=== PATIENT | female | born 1950 | race Caucasian/White ===

== ENCOUNTER 2019-07-17 08:43 | Outpatient (RCR) | payer MEDICARE, OTHER, SELFPAY ==
--- NOTE | 2019-07-23 10:37 | ONC FU_ITS ---
Dr. Bedolla Patient Follow-Up Note Patient: Sophia Ugarte Unit #: [id number]: 1950 Dicatated By: Demetris Bedolla M.D.Date of Visit:Jul 17, 2019 Onc Med Follow-up/Prog Note Chief Complaint: Breast cancer. History of Present Illness: This is a 68 year-old woman with history of left breast cancer, now with multifocal infiltrating ductal carcinoma of the right breast, stage IIA (T1c, pN1a, M0), ER/WV positive and HER-2/alicia negative. She had presented with an abnormal screening mammogram. She underwent excisional biopsy on 05/15/2009. Pathology showed grade 2 infiltrating ductal carcinoma measuring 1.2 x 0.6 cm. There was tumor within 1 mm of the inked margin. She then underwent reexcision lumpectomy and axillary sentinel lymph node biopsy on 06/09/2009. There was no residual tumor in the reexcision specimen and there was no involvement in 1 sentinel lymph node. As such, her disease was stage IA (T1c, N0, M0). Oncotype DX showed a recurrence score of 10, low risk category. She completed radiation to the left breast in July 2009 to a total dose of 6040 cGy. She had then started adjuvant hormonal therapy with Femara. It was stopped in August of 2010 because of increasing musculoskeletal pain. She then started Aromasin in March 2011. She had some pain on the Aromasin also, but initially it was tolerable. However, by July 2012 her pain had increased significantly, and at that point I did have her stop treatment. She started tamoxifen in September 2012. She had presented to Dr. Peterson in December 2012 with pain and swelling in her left leg. A venous Doppler showed occlusive thrombus in the posterior tibial vein at the ankle. She was treated with Lovenox and subsequently with warfarin. Tamoxifen was discontinued. She restarted treatment with Aromasin in January 2013. I did have her stop in June 2015, at which point she had completed 5 years of hormonal therapy. During subsequent follow-up, she also developed atrial fibrillation, for which she has remained on chronic anticoagulation with warfarin. She had evidence of osteoporosis on her baseline bone density study. She was given IV Zometa, but it was stopped after the initial infusion because of side effects. Her laboratory studies in July 2012 showed a mildly elevated serum calcium, and I also had her stop her calcium supplement at that time, but she continued to take vitamin D. Her most recent bone density study, from October 2013, showed a T score of -2.2 in the lumbar spine. She was found to have an adenomatous polyp in the sigmoid colon on colonoscopy in May 2010. She has continued on observation/expectant management for the breast cancer. As of her follow-up visit on 10/17/2017 she appeared to be doing well clinically other than her yearly mammogram from 10/10/2018 was BI-RADS 0 with finding of questionable developing focal asymmetries in the right upper and lower outer quadrants. Additional mammogram views and right breast ultrasound on 10/20/2018 were BI-RADS 4C, suspicious with ultrasound showing 3 suspicious lesions at the 12:00 position and one additional lesion in the subareolar area at the 6:00 position. On 11/06/2018 she underwent biopsies of 2 lesions at the 12:00 position and biopsy of the lesion at 6:00. All showed infiltrating ductal carcinoma. One of the 12:00 lesions was grade 1. The other 2 lesions were grade 2. The breast prognostic profile from the 6:00 lesion showed ER positive at 87% and [place] positive at 62%. The HER-2/alicia results are still pending. The Ki-67 was intermediate at 14%. On 11/30/2018 she underwent bilateral simple mastectomy with right axillary sentinel lymph node biopsy. Pathology on the right breast showed grade 2 infiltrating ductal carcinoma with the tumor in the subareolar location and measuring 1.6 x 1.0 cm. The margins were free of tumor. There were fibrocystic changes noted in both breasts. There was involvement in 1 axillary sentinel lymph node. With those findings she had further evaluation with Oncotype DX. It showed a recurrence score of 22, corresponding to an 18% risk of distant recurrence at 9 years with adjuvant hormonal therapy. The absolute benefit with addition of adjuvant chemotherapy was estimated at approximately 1%. I had seen her for a followup visit on 01/02/2019. Given the Oncotype DX results, she began adjuvant hormonal therapy with exemestane 25 mg daily. She is seen for a follow-up visit. She has been feeling pretty good generally, though she does complain that the exemestane has a making her more tired and fat. Her weight, though, is actually down a little. Her ECOG score is 1. She has not had fever. She has just occasional hot flashes. Her says that she tends to breathe hard at night. She does not complain of shortness of breath. She does have some nonproductive cough. She does not complain of chest pain. She has nausea at times. Bowel function is adequate with stool softeners. She has no complaints. She does have some soreness in her joints, particularly her knees, but it is tolerable. She has just occasional headache. She has numbness in her hands and feet. Medications: Colace 1 Capsule (of 100 mg) Oral daily PRN, Coumadin (5 mg) Tablet Oral Take as Directed, D 1000 2 (1000 Units) Tablet Oral daily, Latanoprost 1 Dual Pack (of 0.005 %) Solution Ophthalmic at bedtime, Metoprolol Succinate ER 1 Tablet (of 50 mg) Tablet SR 24 HR Oral daily, Multivitamin Adult 1 Tablet Oral daily, Pantoprazole Sodium 1 Tablet (of 40 mg) Tablet, enteric coated Oral daily PRN, Tylenol 1 Tablet (of 500 mg) Oral q 6 hours PRN Allergies: Reglan and Sulfamethoxazole-Trimethoprim. Review of Systems: Constitutional - Her energy is generally pretty good. She does light work at home. Her appetite is good and her weight is down a couple of pounds. No fever or chills. She has occasional hot flashes and sweating. ECOG score is 1, ENMT - No sinus congestion/drainage. No mouth sores. No sore throat or difficulty swallowing, Hematologic/Lymphatic - She bruises easily, Respiratory - No shortness of breath. She has periods of apnea at night. She has a nonproductive cough. No pleuritic pain or hemoptysis, Cardiovascular - No angina pain. No palpitations, Gastrointestinal - She has occasional nausea. No vomiting. She has occasional heartburn, depending on what she eats. She takes stool softeners and prunes for her constipation. No blood in the stool or black stools, Genitourinary (F) - No dysuria or hematuria. No urinary frequency. No urgency or incontinence, Musculoskeletal - Her joint pain has gotten worse since starting Exemestane, especially in her knees, Integumentary - No skin complications, Neurologic - No headache or dizziness. She has numbness and tingling in her hands and feet, Psychiatric - No anxiety or depression. No insomnia. Vital Signs: Performed on Jul 17, 2019 09:01 Height - 68.00 in Weight - 167.8 lbs (LOW) BSA - 1.90 sq.m BMI - 25.51 Temperature - 97.9 F (LOW) Pulse - 82 /min Respiration - 20 /min BP - 153/84 mm(hg) (HIGH) O2 Sat - 98 % Pain - 0 Physical Examination: Constitutional - She looks pretty good generally, Eyes - Sclerae nonicteric. Conjunctivae clear, ENMT - No lesions noted in the oral cavity, Hematologic/Lymphatic - No cervical or clavicular adenopathy, Respiratory - Lungs are clear with good air movement bilaterally, Cardiovascular - Heart rhythm is irregular. There is no murmur, gallop, or rub noted, Breasts - There is a firm, moveable nodule in the lateral aspect of the right chest wall/axilla. There are no chest wall lesions noted. There is no axillary adenopathy, Abdomen - Soft. Liver and spleen are not enlarged. There is no abdominal mass or ascites noted and there is no inguinal adenopathy, Extremities - There is mild swelling at the left ankle, Neurologic - No focal neurologic deficits noted. Lab/Imaging: Test performed on May 15, 2019 16:35 Sodium 140 mmol/L Potassium 4.2 mmol/L Chloride 106 mmol/L CO2 24 mmol/L Anion Gap 14.2 BUN 21 mg/dL Creatinine 0.6 mg/dL Cr Clearance (Est) 106.4600 mL/min eGFR 98.8 mL/min Glucose 93 mg/dl Calcium 11.1 mg/dL Protein, Total 7.7 g/dL Albumin 5.1 g/dL Globulin 2.6 gm/dL Bilirubin, Total 0.4 mg/dL ALT (SGPT) 22 U/L AST (SGOT) 23 U/L Alkaline Phosphatase 57 U/L WBC 7.4 10 3/uL RBC 4.08 10 6/uL HGB 14.2 g/dl HCT 40.5 % MCV 99.1 fl MCH 34.7 pg MCHC 35.0 g/dl RDW 13.5 % Platelet Count 254 10 3/cmm MPV 7.7 fl Neutrophils 3.8 10 3/uL Lymphocytes 2.6 10 3/uL Monocytes 0.9 10 3/uL Eosinophils 0.1 10 3/uL Basophils 0.0 10 3/uL Neutrophil % 51.0 % Lymphocyte % 35.6 % Monocyte % 11.6 % Eosinophil % 1.3 % Basophils % 0.5 % Impression: 1. Patient with multifocal infiltrating ductal carcinoma of the right breast, grade 2, stage IIA (T1c, pN1a, M0), ER/WV positive and HER-2/alicia negative. Oncotype DX recurrence score was 22, corresponding to an 18% risk of distant recurrence at 9 years with adjuvant hormonal therapy. The absolute benefit with adjuvant chemotherapy was estimated at approximately 1%. 2. She underwent bilateral simple mastectomy with right axillary sentinel lymph node biopsy on 11/30/2018. 3. She has a history of grade 2 infiltrating ductal carcinoma of the left breast, stage IA (T1c, N0, M0), ER/WV positive and HER-2/alicia negative. Her disease appeared to be low risk by Oncotype DX (recurrence score 10). 4. Her previous treatment included lumpectomy and axillary sentinel lymph node biopsy followed by radiation, completed in July 2009 to a total dose of 6040 cGy. 5. She was given adjuvant hormonal therapy, initially with letrozole and subsequently with exemestane. She has had relatively poor tolerance for aromatase inhibitors, which she continued until July 2012. 6. She developed a lower extremity deep vein thrombosis within 3 months of starting treatment with tamoxifen. 7. She restarted treatment with exemestane as of January 2013. She was able to tolerate it with acceptable toxicity. She stopped exemestane in June 2015 after completing 5 years of hormonal therapy Her other medical illnesses include: 8. Atrial fibrillation. 9. Osteoporosis. 10. She has a history of colonic polyps. In December 2018 she began adjuvant hormonal therapy with exemestane 25 mg daily. Thus far she has been able to tolerated with acceptable toxicity. She also has been on treatment with Prolia for the osteoporosis. She has a nodule in the right chest wall which appears to be consistent with persistent seroma. There has been no evidence of recurrence of the breast cancer. Plan: She continues adjuvant hormonal therapy with exemestane 25 mg daily. She will continue her vitamin D supplement. She will be scheduled for follow-up visit in 3 months, at which time she will be due for her next Prolia injection. Signed By: Demetris Bedolla M.D. <<Signature on File>>
== END 2019-08-10 23:59 | disposition home or self-care (01) ==
LOC: ONCMED 08:43
PROVIDERS: Visit Provider Internal Medicine Medical Oncology
DX: C50.811 Malignant neoplasm of overlapping sites of right female breast (principal); C77.3 Secondary and unspecified malignant neoplasm of axilla and upper limb lymph nodes; I48.91 Unspecified atrial fibrillation; M81.0 Age-related osteoporosis without current pathological fracture; Z17.0 Estrogen receptor positive status [ER+]; Z79.01 Long term (current) use of anticoagulants; Z79.811 Long term (current) use of aromatase inhibitors; Z85.3 Personal history of malignant neoplasm of breast; Z92.3 Personal history of irradiation; Z86.718 Personal history of other venous thrombosis and embolism; Z90.13 Acquired absence of bilateral breasts and nipples; Z86.010 Personal history of colon polyps
CPT/HCPCS: 99214

== ENCOUNTER → 2019-08-06 10:01 | Outpatient (BNVA) | payer MEDICARE, OTHER, SELFPAY | PROVIDERS: Visit Provider Internal Medicine Cardiovascular Disease | DX: I48.91 Unspecified atrial fibrillation (principal) | CPT/HCPCS: 85610 ==

== ENCOUNTER → 2019-08-13 09:28 | Outpatient (BNVA) | payer MEDICARE, OTHER, SELFPAY | PROVIDERS: Visit Provider Internal Medicine Cardiovascular Disease | DX: I48.91 Unspecified atrial fibrillation (principal) | CPT/HCPCS: 85610 ==

== ENCOUNTER → 2019-08-27 08:18 | Outpatient (BNVA) | payer MEDICARE, OTHER, SELFPAY | PROVIDERS: Visit Provider Internal Medicine Cardiovascular Disease | DX: I48.91 Unspecified atrial fibrillation (principal) | CPT/HCPCS: 85610 ==

== ENCOUNTER → 2019-09-10 08:09 | Outpatient (BNVA) | payer MEDICARE, OTHER, SELFPAY | PROVIDERS: Visit Provider Internal Medicine Cardiovascular Disease | DX: I48.91 Unspecified atrial fibrillation (principal) | CPT/HCPCS: 85610 ==

== ENCOUNTER 2019-10-11 11:27 | Outpatient (RCR) | payer MEDICARE, OTHER, SELFPAY ==
[2019-10-11 11:58] LABS: Basophils % 0.4 %; Eosinophils # 0.1 10^3/uL (0.0-0.8); Eosinophils % 1.2 %; Hematocrit 43.6 % (37.0-47.0); Hemoglobin 14.5 g/dL (11.5-15.3); Lymphocytes % 28.7 %; Mean Corpuscular HGB Conc 33.3 g/dL (30.0-36.0); Mean Corpuscular Hemoglobin 33.1 pg (28.0-34.0); Mean Corpuscular Volume 99.5 fL (81-99); Mean Platelet Volume 10.3 fL (7.4-10.4); Monocytes # 0.6 10^3/uL (0.2-0.9); Monocytes % 8.7 %; Neutrophils # 4.2 10^3/uL (1.8-7.7); Neutrophils % 60.9 %; Nucleated Red Blood Cells % 0 %; Platelet Count 246 10^3/cmm (130-400); Red Blood Count 4.38 10^6/uL (4.1-5.3); Red Cell Distribution Width 13.3 % (12.1-15.1); White Blood Count 6.9 10^3/uL (4.0-10.0)
[2019-10-11 12:17] LABS: Alanine Aminotransferase 24 U/L (0-33); Albumin Level 4.4 g/dL (3.5-5.2); Alkaline Phosphatase 55 IU/L (35-105); Anion Gap 15.1 (5-19); Aspartate Amino Transferase 23 U/L (0-32); Blood Urea Nitrogen 12 mg/dL (8-23); Calcium 11.1 mg/dL (8.5-10.5); Carbon Dioxide 25 mmol/L (22-29); Chloride 103 mmol/L (98-107); Glucose 95 mg/dL (65-115); Osmolality Calculated 284 mOsm/kg (285-295); Potassium 4.1 mmol/L (3.5-5.1); Sodium 139 mmol/L (136-145); Total Bilirubin 0.6 mg/dL (0.15-1.2); Total Protein 7.4 g/dL (6.6-8.7)
[2019-10-11 12:32] LABS: INR 1.77 (0.8-1.2)
[2019-10-11] MEDS: denosumab 60 mg SDV SUBCUT (13:30)
[2019-10-11 15:16] LABS: 25 Hydroxy Vitamin D 37 ng/mL (30-100)
--- NOTE | 2019-10-11 18:23 | ONC FU_ITS ---
Dr. Bedolla Patient Follow-Up Note Patient: Sophia Ugarte Unit #: [id number]: 1950 Dicatated By: Demetris Bedolla M.D.Date of Visit:Oct 11, 2019 Onc Med Follow-up/Prog Note Chief Complaint: Breast cancer. History of Present Illness: This is a 69 year-old woman with history of left breast cancer, subsequently found to have multifocal infiltrating ductal carcinoma of the right breast, stage IIA (T1c, pN1a, M0), ER/[place] positive and HER-2/alicia negative. She had presented with an abnormal screening mammogram. She underwent excisional biopsy on 05/15/2009. Pathology showed grade 2 infiltrating ductal carcinoma measuring 1.2 x 0.6 cm. There was tumor within 1 mm of the inked margin. She then underwent reexcision lumpectomy and axillary sentinel lymph node biopsy on 06/09/2009. There was no residual tumor in the reexcision specimen and there was no involvement in 1 sentinel lymph node. As such, her disease was stage IA (T1c, N0, M0). Oncotype DX showed a recurrence score of 10, low risk category. She completed radiation to the left breast in July 2009 to a total dose of 6040 cGy. She had then started adjuvant hormonal therapy with Femara. It was stopped in August of 2010 because of increasing musculoskeletal pain. She then started Aromasin in March 2011. She had some pain on the Aromasin also, but initially it was tolerable. However, by July 2012 her pain had increased significantly, and at that point I did have her stop treatment. She started tamoxifen in September 2012. She had presented to Dr. Peterson in December 2012 with pain and swelling in her left leg. A venous Doppler showed occlusive thrombus in the posterior tibial vein at the ankle. She was treated with Lovenox and subsequently with warfarin. Tamoxifen was discontinued. She restarted treatment with Aromasin in January 2013. I did have her stop in June 2015, at which point she had completed 5 years of hormonal therapy. During subsequent follow-up, she also developed atrial fibrillation, for which she has remained on chronic anticoagulation with warfarin. She had evidence of osteoporosis on her baseline bone density study. She was given IV Zometa, but it was stopped after the initial infusion because of side effects. Her laboratory studies in July 2012 showed a mildly elevated serum calcium, and I also had her stop her calcium supplement at that time, but she continued to take vitamin D. Her most recent bone density study, from October 2013, showed a T score of -2.2 in the lumbar spine. She was found to have an adenomatous polyp in the sigmoid colon on colonoscopy in May 2010. She has continued on observation/expectant management for the breast cancer. As of her follow-up visit on 10/17/2017 she appeared to be doing well clinically other than her yearly mammogram from 10/10/2018 was BI-RADS 0 with finding of questionable developing focal asymmetries in the right upper and lower outer quadrants. Additional mammogram views and right breast ultrasound on 10/20/2018 were BI-RADS 4C, suspicious with ultrasound showing 3 suspicious lesions at the 12:00 position and one additional lesion in the subareolar area at the 6:00 position. On 11/06/2018 she underwent biopsies of 2 lesions at the 12:00 position and biopsy of the lesion at 6:00. All showed infiltrating ductal carcinoma. One of the 12:00 lesions was grade 1. The other 2 lesions were grade 2. The breast prognostic profile from the 6:00 lesion showed ER positive at 87% and [place] positive at 62%. The HER-2/alicia results are still pending. The Ki-67 was intermediate at 14%. On 11/30/2018 she underwent bilateral simple mastectomy with right axillary sentinel lymph node biopsy. Pathology on the right breast showed grade 2 infiltrating ductal carcinoma with the tumor in the subareolar location and measuring 1.6 x 1.0 cm. The margins were free of tumor. There were fibrocystic changes noted in both breasts. There was involvement in 1 axillary sentinel lymph node. With those findings she had further evaluation with Oncotype DX. It showed a recurrence score of 22, corresponding to an 18% risk of distant recurrence at 9 years with adjuvant hormonal therapy. The absolute benefit with addition of adjuvant chemotherapy was estimated at approximately 1%. I had seen her for a followup visit on 01/02/2019. Given the Oncotype DX results, she began adjuvant hormonal therapy with exemestane 25 mg daily. In April 2019 she began treatment with Prolia, as her repeat DEXA scan on 10/20/2018 had shown osteopenia with T score -2.3 in the lumbar spine, -2.1 in the left hip, and -1.7 in the right hip. She is seen for a follow-up visit. She has been feeling pretty good generally, though she still does not have much energy. Her activity tolerance is about the same. ECOG score is 1. She has good appetite. She has not had fever. She sometimes has hot flashes/sweating. She has had a little sinus drainage and runny nose, she also has had some sore throat. She does not complain of shortness of breath, cough, or chest pain. She does have palpitations associated with her atrial fibrillation. She occasionally has nausea. She does have some heartburn, but she manages it adequately with pantoprazole. She has no complaints with bowel or bladder function. She does have some joint pain with the exemestane, mainly in the knees. She also has some pain in the elbows and shoulders. It is tolerable. She has headache occasionally. She has numbness/tingling in her hands and feet. Medications: Colace 1 Capsule (of 100 mg) Oral daily PRN, Coumadin (5 mg) Tablet Oral Take as Directed, D 1000 1 Tablet (of 1000 Units) Oral daily, Latanoprost 1 Dual Pack (of 0.005 %) Solution Ophthalmic at bedtime, Metoprolol Succinate ER 1 Tablet (of 50 mg) Tablet SR 24 HR Oral daily, Multivitamin Adult 1 Tablet Oral daily, Pantoprazole Sodium 1 Tablet (of 40 mg) Tablet, enteric coated Oral daily PRN, Tylenol 1 Tablet (of 500 mg) Oral q 6 hours PRN Allergies: Reglan and Sulfamethoxazole-Trimethoprim. Review of Systems: Constitutional - She does not have much energy. Her activity tolerance is about the same. Her appetite is good. She has not had fever. She sometimes has hot flashes/sweating. Her ECOG score is 1, ENMT - She occasionally has a little sinus drainage, and she complains that her nose runs. No mouth sores. She has had sore throat. No difficulty swallowing, Hematologic/Lymphatic - No abnormal bruising or bleeding, Respiratory - No shortness of breath or cough. No pleuritic pain or hemoptysis, Cardiovascular - No angina pain. She has palpitations associated with her atrial fibrillation, Gastrointestinal - She has occasional nausea. No vomiting. She has occasional heartburn, depending on what she eats. No diarrhea or constipation. No blood in the stool or black stools, Genitourinary (F) - No dysuria or hematuria. No urinary frequency. No urgency or incontinence, Musculoskeletal - She has some joint pain with the exemestane, mainly in her knees but also in her elbows and shoulders. It is tolerable, Integumentary - No skin complications, Neurologic - She occasionally has headache. No dizziness. She has numbness and tingling in her hands and feet, Psychiatric - No anxiety or depression. No insomnia. Vital Signs: Performed on Oct 11, 2019 13:02 Height - 68.00 in Weight - 171.2 lbs (HIGH) BSA - 1.91 sq.m BMI - 26.03 Temperature - 98.4 F Pulse - 99 /min Respiration - 20 /min BP - 144/96 mm(hg) (HIGH) O2 Sat - 97 % Pain - 0 Physical Examination: Constitutional - She looks pretty good generally, Eyes - Sclerae nonicteric. Conjunctivae clear, ENMT - No lesions noted in the oral cavity, Hematologic/Lymphatic - No cervical, clavicular, or axillary adenopathy, Respiratory - Lungs are clear with good air movement bilaterally, Cardiovascular - Heart rhythm is irregular. There is no murmur, gallop, or rub noted, Abdomen - Soft. Liver and spleen are not enlarged. There is no abdominal mass or ascites noted and there is no inguinal adenopathy, Extremities - Mild edema, Neurologic - No focal neurologic deficits noted. Lab/Imaging: Test performed on Oct 11, 2019 11:43 Sodium 139 mmol/L Vitamin D (25-Hydroxy), Total 37 ng/mL Potassium 4.1 mmol/L Chloride 103 mmol/L CO2 25 mmol/L Anion Gap 15.1 BUN 12 mg/dL Creatinine 0.6 mg/dL Cr Clearance (Est) 105.43 mL/min Glucose 95 mg/dL Calcium 11.1 mg/dL Protein, Total 7.4 g/dL Albumin 4.4 g/dL Globulin 3.0 g/dL Bilirubin, Total 0.6 mg/dL ALT (SGPT) 24 U/L AST (SGOT) 23 U/L Alkaline Phosphatase 55 IU/L WBC 6.9 10 3/uL RBC 4.38 10 6/uL HGB 14.5 g/dL HCT 43.6 % MCV 99.5 fL MCH 33.1 pg MCHC 33.3 g/dL RDW 13.3 % Platelet Count 246 10 3/cmm MPV 10.3 fL Neutrophils 4.2 10 3/uL Lymphocytes 2.0 10 3/uL Monocytes 0.6 10 3/uL Eosinophils 0.1 10 3/uL Basophils 0.0 10 3/uL Neutrophil % 60.9 % Lymphocyte % 28.7 % Monocyte % 8.7 % Eosinophil % 1.2 % Basophils % 0.4 % Impression: 1. Patient with multifocal infiltrating ductal carcinoma of the right breast, grade 2, stage IIA (T1c, pN1a, M0), ER/[place] positive and HER-2/alicia negative. Oncotype DX recurrence score was 22, corresponding to an 18% risk of distant recurrence at 9 years with adjuvant hormonal therapy. The absolute benefit with adjuvant chemotherapy was estimated at approximately 1%. 2. She underwent bilateral simple mastectomy with right axillary sentinel lymph node biopsy on 11/30/2018. 3. She has a history of grade 2 infiltrating ductal carcinoma of the left breast, stage IA (T1c, N0, M0), ER/IL positive and HER-2/alicia negative. Her disease appeared to be low risk by Oncotype DX (recurrence score 10). 4. Her previous treatment included lumpectomy and axillary sentinel lymph node biopsy followed by radiation, completed in July 2009 to a total dose of 6040 cGy. 5. She was given adjuvant hormonal therapy, initially with letrozole and subsequently with exemestane. She has had relatively poor tolerance for aromatase inhibitors, which she continued until July 2012. 6. She developed a lower extremity deep vein thrombosis within 3 months of starting treatment with tamoxifen. 7. She restarted treatment with exemestane as of January 2013. She was able to tolerate it with acceptable toxicity. She stopped exemestane in June 2015 after completing 5 years of hormonal therapy Her other medical illnesses include: 8. Atrial fibrillation. 9. Osteoporosis. 10. She has a history of colonic polyps. In December 2018 she began adjuvant hormonal therapy with exemestane 25 mg daily. In April 2019 she began treatment with Prolia for the osteoporosis. She has had some fatigue and joint pain with the exemestane, but the side effects have been tolerable. Thus far there has been no evidence of recurrence of the breast cancer. Plan: She continues adjuvant hormonal therapy with exemestane 25 mg daily. She will be given Prolia 60 mg by subcutaneous injection. She will continue her vitamin D supplement. She will be scheduled for follow-up visit in 6 months. Signed By: Demetris Bedolla M.D. <<Signature on File>>
== END 2019-11-08 23:59 | disposition home or self-care (01) ==
LOC: ONCMED 11:27
PROVIDERS: Internal Medicine Cardiovascular Disease; Visit Provider Internal Medicine Medical Oncology
DX: M81.0 Age-related osteoporosis without current pathological fracture (principal); C50.811 Malignant neoplasm of overlapping sites of right female breast; Z17.0 Estrogen receptor positive status [ER+]; K21.9 Gastro-esophageal reflux disease without esophagitis; I48.91 Unspecified atrial fibrillation; Z90.11 Acquired absence of right breast and nipple; Z90.12 Acquired absence of left breast and nipple; Z79.818 Long term (current) use of other agents affecting estrogen receptors and estrogen levels; Z79.899 Other long term (current) drug therapy; Z92.21 Personal history of antineoplastic chemotherapy
CPT/HCPCS: 80053; 82306; 85025; 85610; 96372; 99214; J0897

== ENCOUNTER 2020-01-09 07:47 | Outpatient (CLI) | payer MEDICARE, OTHER, SELFPAY ==
--- NOTE | 2020-01-09 08:03 | MR_ITS ---
WS: [id number] MRI RIGHT KNEE HISTORY: RIGHT KNEE JOINT PAIN COMPARISON: None available. Anterior cruciate ligament: Slight increased signal within the ACL but the fibers are intact. Posterior cruciate ligament: Intact. Medial collateral ligament: Intact. Posterior lateral corner structures: Ligaments are being displaced from the joint line by large osteo phytes and extruded disc. There is increased signal in the popliteus tendon and the fibular ligament but no full-thickness tear. Medial menisci: Abnormal signal towards the meniscal root of the posterior horn. Abnormal signal exte nds along the superior articular surface toward the free edge. Lateral meniscus: Torn, extruded anterior and posterior horns. Extensor mechanism: Distal quadriceps tendon and patellar tendons are intact. Fluid and soft tissue: Moderate-sized suprapatellar joint effusion. There is a small amount of edema surrounding the anterior knee. Moderate-sized Echevarria's cyst extends over length of 7.5 cm. Osseous and articular structures: Patellofemoral compartment: Moderate patellofemoral joint space narrowing, greatest laterally. Signif icant loss of cartilage and small amount of subchondral edema along the patellar eminence. Medial compartment: There is mild narrowing medial compartment with small osteophytes. Thinning of th e cartilage but no full-thickness defects. Lateral compartment: Marked narrowing of the lateral compartment. Large osteophytes extend laterally from the tibial plateau and femoral condyle. There is bone upon bone with loss of cartilage. A large amount of subchondral edema along the tibial plateau which extends to the midline. Menisci are extrud ed. Small subchondral lesion in the anterior lateral femoral condyle. MR/MR knee RT wo con* [id number] IMPRESSION: 1. Severe internal derangement lateral compartment. Loss of cartilage with mei nt space narrowing, subchondral edema, abnormal and extruded menisci. 2. Moderate-sized joint effusion and moderate Echevarria's cyst. 3. 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 4. Meniscal root tear posterior horn medial meniscus.
== END 2020-01-09 07:48 | disposition home or self-care (01) ==
LOC: RADWPI 07:51
PROVIDERS: PCP Nurse Practitioner Family; Visit Provider Nurse Practitioner Family
DX: M25.461 Effusion, right knee (principal); M94.261 Chondromalacia, right knee; S83.241A Other tear of medial meniscus, current injury, right knee, initial encounter; X58.XXXA Exposure to other specified factors, initial encounter
CPT/HCPCS: 73721

== ENCOUNTER 2020-02-14 08:09 | Day surgery (SDC) | payer MEDICARE, OTHER, SELFPAY ==
[2020-02-13 08:07] VITALS: BMI 26.7
[2020-02-14 08:38] VITALS: BP 140/87; PULSE 99; RESP 18; TEMP 36.9; O2SAT 100
[2020-02-14] MEDS: sodium chloride 0.9% 1,000 ML 30 ML IV (08:57)
--- NOTE | 2020-02-14 09:01 | ANES.PREANE2 ---
Pre-Anesthetic Assessment Pre-Anesthetic Assessment: Height/Weight: Height 1.7 m Weight 77.564 kg Temp Pulse Resp BP Pulse Ox 98.5 F 99 18 140/87 100 02/14/20 08:38 02/14/20 08:38 02/14/20 08:38 02/14/20 08:38 02/14/20 08:38 Proposed Procedure: Operation Date: 02/14/20 09:30 Proposed Procedures p Colonoscopy(Not Applicable) - Hussain Newman MD Last intake: Intake Last Liquid Date 02/13/20 Last Liquid Time 22:00 Last Solid Date 02/12/20 Last Solid Time 19:00 Social: Social History: No alcohol and No tobacco Exam: Pre-Anes Outpt Exam: alert, oriented x 3, clear to auscultation bilaterally and regular rate & rhythm Airway: Submandibular: WNL Cervical ROM: WNL MP: 1 Dentition: Other (poor dentation) History/ROS: No significant history except as noted Pulmonary: Pulmonary: NAVARRO CV/HEM: CV/HEM: Afib and HTN : : None reported Hepatic: Hepatic: None reported GI: GI: GERD (not well controlled) Metabolic: Metabolic: None reported Musc/skel: Musc/skel: OA/DJD Neuropsych: Neuropsych: TIA Anesthetic Plan: ASA status: 3 Anesthesia: Anesthesia Evaluation and MAC Risk of > 500 ml blood loss (7ml/kg in children): No Meds/Allergies Current Medications: Current Medications Generic Name Dose Route Start Last Admin Trade Name Freq PRN Reason Stop Dose Admin Sodium Chloride 1,000 mls @ 30 ml s/hr 02/14/20 08:30 02/14/20 08:57 Sodium Chloride 0.9% IV 02/15/20 08:29 30 mls/hr .Q24H GILDARDO Administration PFSH Anesthesia PFSH: Medical History Anticoagulant long-term use Atrial fibrillation DVT (deep venous thrombosis) Family History Father Cancer Mother Cancer Social History Smoking and tobacco status: never smoked Household members: spouse Marital status: Data Anesthesia Cardiac Studies: No Data to Display
--- NOTE | 2020-02-14 09:27 | W.PM.OPSUD ---
Surgery/Procedure H&P Update DATE OF PROCEDURE: February 14, 2020 DATE H&P PERFORMED: 02/05/20 H&P UPDATE INFORMATION: No changes to prior documentation PLANNED PROCEDURE: Operation Date: 02/14/20 09:30 Proposed Procedures p Colonoscopy(Not Applicable) - Hussain Newman MD
--- NOTE | 2020-02-14 10:37 | ANE.PACU2 ---
Inpatient post-anesthesia follow up: Airway intact: Yes Vital signs: Temperature 98.5 F Pulse Rate 99 Respiratory Rate 18 Blood Pressure 140/87 Pulse Oximetry 100 Oxygen Delivery Me thod Room Air Oxygen Flow Rate Fraction of Inspir ed Oxygen Hydration adequate: Yes Nausea and vomiting: No Mental status: Baseline
[2020-02-14 10:38] VITALS: BP 117/73; PULSE 85; RESP 16; TEMP 36.3; O2SAT 100
[2020-02-14 10:53] VITALS: BP 125/89; PULSE 95; RESP 18; O2SAT 97
== END 2020-02-14 10:54 | disposition home or self-care (01) ==
PROVIDERS: PCP Nurse Practitioner Family; Visit Provider Surgery
PROC: 0DJD8ZZ Inspection of Lower Intestinal Tract, Via Natural or Artificial Opening Endoscopic (ICD-10-PCS; CPT 45378; principal; 2020-02-14 09:30)
DX: Z86.010 Personal history of colon polyps (principal); K57.30 Diverticulosis of large intestine without perforation or abscess without bleeding; K64.8 Other hemorrhoids; I48.91 Unspecified atrial fibrillation; I10 Essential (primary) hypertension; K21.9 Gastro-esophageal reflux disease without esophagitis; M19.90 Unspecified osteoarthritis, unspecified site; Z86.73 Personal history of transient ischemic attack (TIA), and cerebral infarction without residual deficits; Z86.718 Personal history of other venous thrombosis and embolism
CPT/HCPCS: 12345; 45378; J0171; J2704

== ENCOUNTER → 2020-03-25 12:58 | Outpatient (BNVA) | payer MEDICARE, OTHER, SELFPAY | PROVIDERS: PCP Nurse Practitioner Family; Referring Provider Dermatology; Visit Provider Dermatology | DX: Z85.828 Personal history of other malignant neoplasm of skin (principal); Z85.820 Personal history of malignant melanoma of skin; Z12.83 Encounter for screening for malignant neoplasm of skin; L57.0 Actinic keratosis; L82.1 Other seborrheic keratosis; D18.01 Hemangioma of skin and subcutaneous tissue; B35.1 Tinea unguium; L72.0 Epidermal cyst | CPT/HCPCS: 17000; 17003; 99202; 99203 ==

== ENCOUNTER 2020-04-14 11:52 | Outpatient (CLI) | payer MEDICARE, OTHER, SELFPAY ==
[2020-04-14 12:55] LABS: Basophils # 0.1 10^3/uL (0.0-0.1); Basophils % 0.7 %; Eosinophils # 0.1 10^3/uL (0.0-0.8); Hemoglobin 14.1 g/dL (11.5-15.3); Lymphocytes # 1.7 10^3/uL (0.8-4.8); Lymphocytes % 24.3 %; Mean Corpuscular HGB Conc 32.8 g/dL (30.0-36.0); Mean Corpuscular Hemoglobin 33.9 pg (28.0-34.0); Mean Corpuscular Volume 103.4 fL (81-99); Mean Platelet Volume 10.3 fL (7.4-10.4); Monocytes # 0.7 10^3/uL (0.2-0.9); Neutrophils # 4.58 10^3/uL (1.8-7.7); Neutrophils % 63.9 %; Nucleated Red Blood Cells % 0 %; Platelet Count 260 10^3/cmm (130-400); Red Blood Count 4.16 10^6/uL (4.1-5.3); Red Cell Distribution Width 13.5 % (12.1-15.1); White Blood Count 7.2 10^3/uL (4.0-10.0)
[2020-04-14 13:08] LABS: Alanine Aminotransferase 31 U/L (0-33); Albumin Level 4.2 g/dL (3.5-5.2); Alkaline Phosphatase 51 IU/L (35-105); Anion Gap 13.1 (5-19); Aspartate Amino Transferase 24 U/L (0-32); Blood Urea Nitrogen 18 mg/dL (8-23); Calcium 10.3 mg/dL (8.5-10.5); Carbon Dioxide 25 mmol/L (22-29); Chloride 105 mmol/L (98-107); Globulin 2.8 g/dL (1.3-4.6); Glucose 90 mg/dL (65-115); Osmolality Calculated 289 mOsm/kg (285-295); Potassium 4.1 mmol/L (3.5-5.1); Sodium 139 mmol/L (136-145); Total Bilirubin 0.6 mg/dL (0.15-1.2)
[2020-04-14] MEDS: denosumab 60 mg SDV SUBCUT (14:22)
--- NOTE | 2020-04-15 16:56 | ONC FU_ITS ---
Dr. Bedolla Patient Follow-Up Note Patient: Sophia Ugarte Unit #: [id number]: 1950 Dicatated By: Demetris Bedolla M.D.Date of Visit:Apr 14, 2020 Onc Med Follow-up/Prog Note Chief Complaint: Breast cancer. History of Present Illness: This is a 69 year-old woman with history of left breast cancer, subsequently found to have multifocal infiltrating ductal carcinoma of the right breast, stage IIA (T1c, pN1a, M0), ER/VA positive and HER-2/alicia negative. She had presented with an abnormal screening mammogram. She underwent excisional biopsy on 05/15/2009. Pathology showed grade 2 infiltrating ductal carcinoma measuring 1.2 x 0.6 cm. There was tumor within 1 mm of the inked margin. She then underwent reexcision lumpectomy and axillary sentinel lymph node biopsy on 06/09/2009. There was no residual tumor in the reexcision specimen and there was no involvement in 1 sentinel lymph node. As such, her disease was stage IA (T1c, N0, M0). Oncotype DX showed a recurrence score of 10, low risk category. She completed radiation to the left breast in July 2009 to a total dose of 6040 cGy. She had then started adjuvant hormonal therapy with Femara. It was stopped in August of 2010 because of increasing musculoskeletal pain. She then started Aromasin in March 2011. She had some pain on the Aromasin also, but initially it was tolerable. However, by July 2012 her pain had increased significantly, and at that point I did have her stop treatment. She started tamoxifen in September 2012. She had presented to Dr. Peterson in December 2012 with pain and swelling in her left leg. A venous Doppler showed occlusive thrombus in the posterior tibial vein at the ankle. She was treated with Lovenox and subsequently with warfarin. Tamoxifen was discontinued. She restarted treatment with Aromasin in January 2013. I did have her stop in June 2015, at which point she had completed 5 years of hormonal therapy. During subsequent follow-up, she also developed atrial fibrillation, for which she has remained on chronic anticoagulation with warfarin. She had evidence of osteoporosis on her baseline bone density study. She was given IV Zometa, but it was stopped after the initial infusion because of side effects. Her laboratory studies in July 2012 showed a mildly elevated serum calcium, and I also had her stop her calcium supplement at that time, but she continued to take vitamin D. Her most recent bone density study, from October 2013, showed a T score of -2.2 in the lumbar spine. She was found to have an adenomatous polyp in the sigmoid colon on colonoscopy in May 2010. She has continued on observation/expectant management for the breast cancer. As of her follow-up visit on 10/17/2017 she appeared to be doing well clinically other than her yearly mammogram from 10/10/2018 was BI-RADS 0 with finding of questionable developing focal asymmetries in the right upper and lower outer quadrants. Additional mammogram views and right breast ultrasound on 10/20/2018 were BI-RADS 4C, suspicious with ultrasound showing 3 suspicious lesions at the 12:00 position and one additional lesion in the subareolar area at the 6:00 position. On 11/06/2018 she underwent biopsies of 2 lesions at the 12:00 position and biopsy of the lesion at 6:00. All showed infiltrating ductal carcinoma. One of the 12:00 lesions was grade 1. The other 2 lesions were grade 2. The breast prognostic profile from the 6:00 lesion showed ER positive at 87% and VA positive at 62%. The HER-2/alicia results are still pending. The Ki-67 was intermediate at 14%. On 11/30/2018 she underwent bilateral simple mastectomy with right axillary sentinel lymph node biopsy. Pathology on the right breast showed grade 2 infiltrating ductal carcinoma with the tumor in the subareolar location and measuring 1.6 x 1.0 cm. The margins were free of tumor. There were fibrocystic changes noted in both breasts. There was involvement in 1 axillary sentinel lymph node. With those findings she had further evaluation with Oncotype DX. It showed a recurrence score of 22, corresponding to an 18% risk of distant recurrence at 9 years with adjuvant hormonal therapy. The absolute benefit with addition of adjuvant chemotherapy was estimated at approximately 1%. I had seen her for a followup visit on 01/02/2019. Given the Oncotype DX results, she began adjuvant hormonal therapy with exemestane 25 mg daily. In April 2019 she began treatment with Prolia, as her repeat DEXA scan on 10/20/2018 had shown osteopenia with T score -2.3 in the lumbar spine, -2.1 in the left hip, and -1.7 in the right hip. She is seen for a follow-up visit. She has been feeling pretty good generally. She does report having aches and pains. In particular, her right knee has been giving her fits. She had short-term benefit with the recent steroid injection. She also has pain, though, in her lower back and hips. She does not have too much energy, but she is walking and she is doing light work. ECOG score is 1. Her appetite is good. She has not had fever. She does have lots of hot flashes and sweating. She has had sore throat off and on. She has occasional cough, which tends to be worse at night. She does not complain of shortness of breath or chest pain. She remains on anticoagulation with warfarin for her atrial fibrillation. She has nausea occasionally. She also has acid reflux, for which she is on medication. Bowel function has been okay. She has urgency with urination. She has headache off and on. She does not complain of dizziness. She has numbness/tingling in her hands and feet. Medications: Colace 1 Capsule (of 100 mg) Oral daily PRN, Coumadin (5 mg) Tablet Oral Take as Directed, D 1000 1 Tablet (of 1000 Units) Oral daily, Latanoprost 1 Dual Pack (of 0.005 %) Solution Ophthalmic at bedtime, Metoprolol Succinate ER 1 Tablet (of 50 mg) Tablet SR 24 HR Oral daily, Multivitamin Adult 1 Tablet Oral daily, Pantoprazole Sodium 1 Tablet (of 40 mg) Tablet, enteric coated Oral daily PRN, Tylenol 1 Tablet (of 500 mg) Oral q 6 hours PRN Allergies: Reglan, Sulfamethoxazole-Trimethoprim, and zometa. Review of Systems: Constitutional - She does not have too much energy. She is doing light work. Appetite is good and weight is stable. No fever. She is having lots of hot flashes. ECOG score is 2, ENMT - She has some sinus congestion/drainage. She has vora sore in the roof of her mouth. She sometimes has sore throat. No difficulty swallowing, Hematologic/Lymphatic - No abnormal bruising or bleeding, Respiratory - No shortness of breath. She occasionally has cough, worse at night. No pleuritic pain or hemoptysis, Cardiovascular - No angina pain. No palpitations, Gastrointestinal - She has occasional nausea. She has acid reflux. No diarrhea or constipation. No blood in the stool or black stools, Genitourinary (F) - No dysuria or hematuria. No urinary frequency, but she does have urgency. No incontinence, Musculoskeletal - She has pain in her right knee, and she also has been having pain in her hips and lower back, Integumentary - No skin rash, Neurologic - No headache or dizziness. She has numbness/tingling in her hands and feet, Psychiatric - No anxiety or depression. She does not sleep well. Vital Signs: Performed on Apr 14, 2020 13:33 Height - 68.00 in Weight - 172.8 lbs (HIGH) BSA - 1.92 sq.m BMI - 26.27 Temperature - 98.2 F (LOW) Pulse - 94 /min Respiration - 18 /min BP - 141/92 mm(hg) (HIGH) O2 Sat - 96 % Pain - 0 Physical Examination: Constitutional - She looks pretty good generally, Eyes - Sclerae nonicteric. Conjunctivae clear, ENMT - No lesions noted in the oral cavity, Hematologic/Lymphatic - No cervical or clavicular adenopathy, Respiratory - Lungs are clear with good air movement bilaterally, Cardiovascular - Heart rhythm is irregular. There is no murmur, gallop, or rub noted, Breasts - There is slight soft tissue swelling in the upper left chest wall. There are no chest wall lesions noted. There is no axillary adenopathy noted, Abdomen - Soft. Liver and spleen are not enlarged. There is no abdominal mass or ascites noted and there is no inguinal adenopathy, Extremities - Slight edema, Neurologic - No focal neurologic deficits noted. Lab/Imaging: Test performed on Apr 14, 2020 12:05 Sodium 139 mmol/L Potassium 4.1 mmol/L Chloride 105 mmol/L CO2 25 mmol/L Anion Gap 13.1 BUN 18 mg/dL Creatinine 0.6 mg/dL Cr Clearance (Est) 106.41 mL/min Glucose 90 mg/dL Osmolality - Calculated 289 mOsm/kg Calcium 10.3 mg/dL Protein, Total 7.0 g/dL Albumin 4.2 g/dL Globulin 2.8 g/dL Bilirubin, Total 0.6 mg/dL ALT (SGPT) 31 U/L AST (SGOT) 24 U/L Alkaline Phosphatase 51 IU/L WBC 7.2 10 3/uL RBC 4.16 10 6/uL HGB 14.1 g/dL HCT 43.0 % MCV 103.4 fL MCH 33.9 pg MCHC 32.8 g/dL RDW 13.5 % Platelet Count 260 10 3/cmm MPV 10.3 fL Neutrophils 4.58 10 3/uL Lymphocytes 1.7 10 3/uL Monocytes 0.7 10 3/uL Eosinophils 0.1 10 3/uL Basophils 0.1 10 3/uL Neutrophil % 63.9 % Lymphocyte % 24.3 % Monocyte % 10.0 % Eosinophil % 1.0 % Basophils % 0.7 % NRBC % 0 % Impression: 1. Patient with multifocal infiltrating ductal carcinoma of the right breast, grade 2, stage IIA (T1c, pN1a, M0), ER/VA positive and HER-2/alicia negative. Oncotype DX recurrence score was 22, corresponding to an 18% risk of distant recurrence at 9 years with adjuvant hormonal therapy. The absolute benefit with adjuvant chemotherapy was estimated at approximately 1%. 2. She underwent bilateral simple mastectomy with right axillary sentinel lymph node biopsy on 11/30/2018. 3. She has a history of grade 2 infiltrating ductal carcinoma of the left breast, stage IA (T1c, N0, M0), ER/VA positive and HER-2/alicia negative. Her disease appeared to be low risk by Oncotype DX (recurrence score 10). 4. Her previous treatment included lumpectomy and axillary sentinel lymph node biopsy followed by radiation, completed in July 2009 to a total dose of 6040 cGy. 5. She was given adjuvant hormonal therapy, initially with letrozole and subsequently with exemestane. She has had relatively poor tolerance for aromatase inhibitors, which she continued until July 2012. 6. She developed a lower extremity deep vein thrombosis within 3 months of starting treatment with tamoxifen. 7. She restarted treatment with exemestane as of January 2013. She was able to tolerate it with acceptable toxicity. She stopped exemestane in June 2015 after completing 5 years of hormonal therapy Her other medical illnesses include: 8. Atrial fibrillation. 9. Osteoporosis. 10. She has a history of colonic polyps. In December 2018 she began adjuvant hormonal therapy with exemestane 25 mg daily. In April 2019 she began treatment with Prolia for the osteoporosis. During followup she has had fatigue and she had had significant musculoskeletal pain, but she does feel that the side effects are still tolerable. Thus far there has been no evidence of recurrence of the breast cancer. Plan: She prefers to continue her adjuvant hormonal therapy with exemestane 25 mg daily. She will be given Prolia 60 mg by subcutaneous injection. She will continue her vitamin D supplement. She will be scheduled for follow-up visit in 6 months. Signed By: Demetris Bedolla M.D. <<Signature on File>>
== END 2020-04-14 11:53 | disposition home or self-care (01) ==
PROVIDERS: PCP Nurse Practitioner Family; Visit Provider Internal Medicine Medical Oncology
DX: C50.811 Malignant neoplasm of overlapping sites of right female breast (principal); Z17.0 Estrogen receptor positive status [ER+]; I48.91 Unspecified atrial fibrillation; M81.0 Age-related osteoporosis without current pathological fracture; Z79.818 Long term (current) use of other agents affecting estrogen receptors and estrogen levels; Z85.3 Personal history of malignant neoplasm of breast; Z86.010 Personal history of colon polyps; Z92.3 Personal history of irradiation
CPT/HCPCS: 80053; 85025; 96372; 99214; J0897

== ENCOUNTER → 2020-05-08 10:45 | Outpatient (BNVA) | payer MEDICARE, OTHER, SELFPAY | PROVIDERS: PCP Nurse Practitioner Family; Visit Provider Internal Medicine | DX: I48.91 Unspecified atrial fibrillation (principal); Z79.01 Long term (current) use of anticoagulants | CPT/HCPCS: 85610 ==

== ENCOUNTER 2020-06-25 10:05 | Emergency (ER) | payer MEDICARE, OTHER, SELFPAY ==
[2020-06-25 10:14] VITALS: BP 137/91; PULSE 98; RESP 16; TEMP 36.6; O2SAT 99; BMI 26.9
--- NOTE | 2020-06-25 10:21 | W.ED.BACK ---
HPI - Back Pain/Injury General: Chief Complaint: Back Pain/Injury Stated Complaint: back pain Time Seen by Provider: 06/25/20 10:14 History of Present Illness: HPI Narrative: Patient is a 69-year-old female comes to the ED with back pain. Patient says she has had back pain for about 1 month, but states it got worse 2 days ago. Denies any fall or injury to cause acute lower back pain. pain makes it hard for her to walk. Denies any bladder or bowel incontinence, pelvic anesthesia, weakness to extremities. Pain is located in the mid part of lower back and she rates it a 10 out of 10. Patient says she has been taking Tylenol for the pain. She does not want any pain meds here in the ED. denies any trauma or injury to cause acute back pain. Associated symptoms: Deny abdominal pain, chills, dysuria, fatigue, fever(s), hematuria, nausea or vomiting Review of Systems Const: Denies: fever(s), chills or fatigue Eyes: Denies: change in vision or eye discomfort ENMT: Denies: throat pain, odynophagia, nasal discharge or nasal congestion Card: Denies: chest pain, palpitations, edema, swelling of feet/ankles, dyspnea on exertion or orthopnea Resp: Denies: dyspnea, productive cough or non-productive cough GI: Denies: abdominal pain, nausea, vomiting, diarrhea, constipation or hematochezia : Denies: flank pain, dysuria or hematuria Musc: Reports: back pain (lower back pain); Denies: neck pain or extremity swelling Skin/Breast: Denies: rash or new lesions Neuro: Denies: headache(s), numbness in extremities or weakness in extremities PFSH ED PFSH: Medical History Anticoagulant long-term use Atrial fibrillation DVT (deep venous thrombosis) History of malignant melanoma History of nonmelanoma skin cancer Family History Father Cancer Mother Cancer Social History Smoking and tobacco status: never smoked Household members: spouse Marital status: Physical Exam Const: COMMON NORMALS: no acute distress, patient oriented x3, healthy appearing and alert GENERAL APPEARANCE: cooperative and comfortable HENMT: COMMON NORMALS: normocephalic HEAD & SCALP: normocephalic MOUTH: Normal oral and palatal mucosa present THROAT: posterior oropharynx normal and uvula midline Eye: COMMON NORMALS: Equal, round and reactive pupils present PUPIL: Yes Equal, round and reactive pupils present Neck/C-Spine: COMMON NORMALS: supple GENERAL: Yes normal visual inspection Resp: COMMON NORMALS: normal respiratory effort, No retractions, No use of accessory muscles and clear to auscultation bilaterally AUSCULTATION: clear to auscultation bilaterally Cardio: COMMON NORMALS: regular rate, regular rhythm, S1 normal heart sound present, S2 normal heart sound present, No gallops present (Cardio), No clicks present (Cardio), No murmurs present (Cardio) and Peripheral pulses 2+ throughout RATE: regular rate RHYTHM: regular rhythm HEART SOUNDS: S1 normal heart sound present and S2 normal heart sound present PERIPHERAL PULSES: Peripheral pulses 2+ throughout GI: COMMON NORMALS: Normal to inspection, nondistended, normoactive bowel sounds present, Soft to palpation, non-tender and no masses PALPATION: Yes Soft to palpation : COMMON NORMALS: Yes no CVA tenderness BLADDER/KIDNEY EXAM: Yes no CVA tenderness Back/Pelvis: COMMON NORMALS: no CVA tenderness LUMBAR SPINE/LOWER BACK: Yes pain with ROM, Yes lumbar spinal tenderness (Mild tenderness) Lumbar spinal tenderness location: L2, L3 and L4 and Yes paraspinal muscle tenderness Extremity: COMMON NORMALS: normal to inspection and no pedal edema Neuro: COMMON NORMALS: patient oriented x3 and moves all extremities SENSORIUM/ORIENTATION: Yes alert Skin: GENERAL SKIN EXAM: dry skin Course Vital Signs: Vital signs: Vital Signs Temperature 97.8 F 06/25/20 10:14 Pulse Rate 98 06/25/20 10:14 Respiratory Rate 16 06/25/20 10:14 Blood Pressure 137/91 06/25/20 10:14 Pulse Oximetry 99 06/25/20 10:14 MDM - Back Pain/Injury MDM Narrative: Medical decision making narrative: Patient is a 69-year-old female comes the ED with lower back pain. Denies any injury or trauma to cause acute back pain. Due to patient's tenderness over lumbar spine and pain when ambulating I had CT lumbar spine ordered. CT lumbar spine showed some mild degenerative disc disease and no high-grade stenosis or disc protrusion seen. Patient was discharged and told to follow-up with PCP in 7 to 10 days for reevaluation and further management. She was sent home with a prescription for methocarbamol. Return to ED precautions given. Patient understood and agreed with plan. Imaging Data^: Other CT: Attestation: I personally reviewed and interpreted this imaging study as follows: Radiologist's impression: [address] [place] [address] CT Scan Report Signed Patient: Sophia Ugarte Unit #: [id number] : 1950 Age/Sex: 69 / F ADM Date: 06/25/20 Loc: ER Room/Bed: Attending Dr: Ordering Provider/Ordering MD: García Mathur Date of Service: 06/25/20 Procedure(s): CT lumbar spine wo con* [id number] Accession Number(s): [id number] Report Number: [id number] WS: [id number] CT LUMBAR SPINE, noncontrast. HISTORY: low back pain with radiation down legs. Difficulty walking TECHNIQUE: Contiguous 2.5 mm axial imaging are performed. Sagittal and coronal reformats are submitted and reviewed. All CT scans at [facility] use at least one of these dose optimization techniques: automated exposure control; mA and/or kV adjustment per patient size (includes targeted exams where dose is matched to clinical indication); or iterative reconstruction. IV contrast: None DLP: 2227.07 mGy.cm COMPARISON: None available. Mild reverse S-shaped curvature of the lumbar spine. Posterior alignment is normal. Disc spaces and vertebral body heights are normal. No osteoblastic or osteolytic bone disease. L1-2: Normal. L2-3: Normal. L3-4: Mild asymmetric disc bulging. Disc bulge slightly greater to the LEFT into the lateral recess. No significant stenosis. L4-5: Diffuse annular disc bulging and mild facet disease. Mild LEFT foraminal narrowing. L5-S1: Mild annular disc bulging is slightly asymmetric to the LEFT. No significant contact on the nerve roots. Mild atherosclerosis aorta. CT/CT lumbar spine wo con* [id number] IMPRESSION: 1. Mild degenerative scoliosis and degenerative disc disease from L3-4 to L5-S1. No high-grade stenosis. 2. No focal disc protrusions. 3. Mild LEFT foraminal stenosis at L4-5. Dictated By: Gema Vyas DO Signed By: Gema Vyas DO Signed Date/Time: 06/25/20 1139 DD/ 1125 Discharge Plan Discharge Patient Disposition: Home Clinical Impression: Lumbar back pain Condition: Stable Prescriptions: New methocarbamol 750 mg tablet 750 mg PO Q8H Qty: 30 RF: 0 No Action cholecalciferol (vitamin D3) 25 mcg (1,000 unit) capsule 25 mcg PO DAILY RF: 0 Centrum Silver Women 8 mg iron-400 mcg-300 mcg tablet 1 tab PO DAILY RF: 0 exemestane 25 mg tablet 25 mg PO DAILY RF: 0 docusate sodium [Stool Softener] 100 mg capsule 100 mg PO DAILY RF: 0 pantoprazole [Protonix] 40 mg tablet,delayed release (DR/EC) 40 mg PO DAILY PRN (Reason: Acid Reflux) RF: 0 warfarin 2.5 mg tablet 2.5 mg PO DIRECTED RF: 0 warfarin 5 mg tablet 5 mg PO DIRECTED RF: 0 metoprolol succinate 50 mg tablet extended release 24 hr 50 mg PO DAILY Qty: 90 RF: 3 Discharge Orders: Discharge ED (Routine); Ordered 06/25/20 Ordered By: García Mathur Referrals: Rita Coles FNP [Primary Care Provider] - Discharge Diet: Regular Discharge Activity: Increase activity as tolerated Patient Instructions: Acute Low Back Pain (ED) Activity Restrictions/Additional Instructions: Follow-up with medical provider as directed in 7 to 10 days. Apply cold pack or heat on lower back down for symptoms. Stretch lower back daily. Continue taking all home medications as prescribed. Remember methocarbamol is a muscle relaxer and can cause drowsiness, so take before bed. Return to the ER or your medical provider if condition worsens. Please read and understand discharge instructions. If any questions, please ask. Coding Level of Care Code ED Neuro Intensivist Physician for Ellieg Fwd Exam Comprehensive
--- NOTE | 2020-06-25 10:30 | CT_ITS ---
WS: [id number] CT LUMBAR SPINE, noncontrast. HISTORY: low back pain with radiation down legs. Difficulty walking TECHNIQUE: Contiguous 2.5 mm axial imaging are performed. Sagittal and coronal reformats are submitte d and reviewed. All CT scans at [facility] use at least one of these dose optimization te chniques: automated exposure control; mA and/or kV adjustment per patient size (includes targeted exa ms where dose is matched to clinical indication); or iterative reconstruction. IV contrast: None DLP: 2227.07 mGy.cm COMPARISON: None available. Mild reverse S-shaped curvature of the lumbar spine. Posterior alignment is normal. Disc spaces and v ertebral body heights are normal. No osteoblastic or osteolytic bone disease. L1-2: Normal. L2-3: Normal. L3-4: Mild asymmetric disc bulging. Disc bulge slightly greater to the LEFT into the lateral recess. No significant stenosis. L4-5: Diffuse annular disc bulging and mild facet disease. Mild LEFT foraminal narrowing. L5-S1: Mild annular disc bulging is slightly asymmetric to the LEFT. No significant contact on the ne rve roots. Mild atherosclerosis aorta. CT/CT lumbar spine wo con* [id number] IMPRESSION: 1. Mild degenerative scoliosis and degenerative disc disease from L3-4 to L5-S 1. No high-grade stenosis. 2. No focal disc protrusions. 3. Mild LEFT foraminal stenosis at L4-5.
== END 2020-06-25 12:19 | disposition home or self-care (01) ==
PROVIDERS: Emergency Provider Physician Assistant; PCP Nurse Practitioner Family
DX: M54.5 Low back pain (principal); Z79.01 Long term (current) use of anticoagulants; I48.91 Unspecified atrial fibrillation
CPT/HCPCS: 12345; 72131; 99281; 99282

== ENCOUNTER 2020-07-14 07:46 | Outpatient (CLI) | payer MEDICARE, OTHER, SELFPAY ==
--- NOTE | 2020-07-14 07:51 | MR_ITS ---
WS: [id number] MRI LUMBAR SPINE WITH AND WITHOUT CONTRAST. HISTORY: SEVERE LOW BACK PAIN COMPARISON: CT 06/25/2020 TECHNIQUE: Sagittal and axial multisequence imaging is submitted. Sagittal and axial T1 fat sat seque nces post-ProHance 17 cc IV. Moderate increase in thoracic kyphosis. Disc desiccation and narrowing. There is slight anterior wedg ing of T6 and T7. Mild straightening and RIGHT convex curvature of the lumbar spine. 3 mm retrolisthesis of L3 and L4. Mild disc desiccation throughout. No marrow edema or fracture in the lumbar spine. Conus terminates normally at L1. L1-L2: Normal. L2-L3: Normal. L3-L4: Mild osteophytic ridging and annular disc bulging with mild facet and ligamentum flavum hypert rophy. Fluid in the facet joints bilaterally. Mild bilateral foraminal stenosis. L4-L5: Mild annular disc bulging and osteophytic ridging. Fluid in the facet joints with mild ligamen héctor flavum hypertrophy. Disc protrusion extends into the LEFT subarticular recess abutting the L5 ner ve root. Mild bilateral foraminal stenosis, LEFT greater than RIGHT. L5-S1: Mild annular disc bulging and osteophytic ridging. Mild encroachment into the LEFT subarticula r recess by facet joint arthritis. 18 x 19 mm cystic mass posterior to the third sacral segment with bone erosion consistent with a carisa neural cyst. This is a lobulated cystic mass that may be several adjacent cysts. No discitis or osteomyelitis identified. There is facet joint acute inflammatory changes at the L4-5 level. There is enhancement within the soft tissues also at the L5-S1 greatest on the LEFT. MR/MR lumbar spine wo/w con [id number] IMPRESSION: 1. No high-grade central stenosis. 2. Moderate LEFT subarticular recess stenosis at L4-5 with encroachment upon t he L5 nerve root by a disc protrusion and facet joint arthritis. 3. Mild bilateral foraminal stenosis, LEFT greater than RIGHT at L4-5. 4. Bilateral facet joint inflammatory changes at L4-5 and L5-S1 with enhanceme nt. 5. No discitis or osteomyelitis. 6. Mild RIGHT convex curvature lumbar spine.
== END 2020-07-14 07:47 | disposition home or self-care (01) ==
LOC: RADSHAW 07:49
PROVIDERS: PCP Nurse Practitioner Family; Visit Provider Nurse Practitioner Family
DX: M54.5 Low back pain (principal); M48.061 Spinal stenosis, lumbar region without neurogenic claudication
CPT/HCPCS: 72158; A9579

== ENCOUNTER 2020-08-07 11:35 | Outpatient (CLI) | payer MEDICARE, OTHER, SELFPAY ==
--- NOTE | 2020-08-07 12:06 | CT_ITS ---
WS: [id number] CT ABDOMEN AND PELVIS NONCONTRAST HISTORY: CHRONIC ABDOMINAL PAIN TECHNIQUE: Imaging performed through the abdomen and pelvis. Coronal and sagittal reformats are submi tted. All CT scans at [facility] use at least one of these dose optimization techniques: automated exposure control; mA and/or kV adjustment per patient size (includes targeted exams where d ose is matched to clinical indication); or iterative reconstruction. DLP: 1093.15 mGycm COMPARISON: 11/15/2016 Lower thorax: Lung bases are clear. Mildly enlarged cardiac chambers. There is a small hiatal hernia. Liver: Normal size liver. No mass or bile duct dilatation. Gallbladder: Prior cholecystectomy. Pancreas: Normal size and attenuation. Normal pancreatic duct. No pancreatitis or mass. Spleen: Normal. Adrenal glands: Normal. No mass. Right kidney: Normal size kidney with no mass or hydronephrosis. Left kidney: Lobulated cyst from the upper pole is partially exophytic measuring 2.0 x 1.7 cm. Simila r to the prior study from 2017. No obstruction. Aorta: Mild atherosclerosis abdominal aorta with no aneurysm. There is a retrocrural low-attenuation mass on the RIGHT measuring 10 x 15 mm that was not present on the prior study. This nodule was present on the PET/CT of 01/06/2019 but slightly increased in size s gilberto that examination. Negative on the PET/CT. GI tract: Prior appendectomy. No GI tract obstruction. Moderate amount of diverticula in the descendi ng and sigmoid colon. No acute inflammation. Abdominal wall: Negative. No hernia. Pelvis: Normal. Osseous structures: RIGHT convex curvature lumbar spine. CT/CT abdomen pelvis wo con [id number] IMPRESSION: 1. Diverticulosis without acute diverticulitis. 2. Small hiatal hernia. 3. Low-attenuation mass in the RIGHT retrocrural space. Enlarged since 2019. C ystic lymph node versus dilated cisterna chyli. Patient does have history of pr ior breast cancer therefore metastatic lymph node needs to be excluded. No othe r evidence for metastatic disease to the abdomen structures on this unenhanced study. Consider short-term follow-up CT with IV and oral contrast in 3 months. PET/CT imaging would also be helpful. 4. Prior appendectomy. 5. No ascites.
[2020-08-07] MEDS: iohexol 300 mg/mL 50 mL Btl PO (12:51)
== END 2020-08-07 11:36 | disposition home or self-care (01) ==
LOC: RADWPI 11:41
PROVIDERS: PCP Nurse Practitioner Family; Visit Provider Nurse Practitioner Family
DX: R10.9 Unspecified abdominal pain (principal); K57.90 Diverticulosis of intestine, part unspecified, without perforation or abscess without bleeding; K44.9 Diaphragmatic hernia without obstruction or gangrene; Z90.49 Acquired absence of other specified parts of digestive tract
CPT/HCPCS: 74176; Q9967

== ENCOUNTER 2020-10-14 12:19 | Outpatient (CLI) | payer MEDICARE, OTHER, SELFPAY ==
[2020-10-14 13:09] LABS: Basophils % 0.5 %; Eosinophils # 0.1 10^3/uL (0.0-0.8); Eosinophils % 0.9 %; Hematocrit 41.4 % (37.0-47.0); Lymphocytes # 1.8 10^3/uL (0.8-4.8); Lymphocytes % 27.7 %; Mean Corpuscular HGB Conc 33.8 g/dL (30.0-36.0); Mean Corpuscular Hemoglobin 34.3 pg (28.0-34.0); Mean Corpuscular Volume 101.5 fL (81-99); Mean Platelet Volume 10.2 fL (7.4-10.4); Monocytes # 0.7 10^3/uL (0.2-0.9); Monocytes % 10.7 %; Neutrophils # 3.88 10^3/uL (1.8-7.7); Neutrophils % 59.9 %; Nucleated Red Blood Cells % 0 %; Platelet Count 235 10^3/cmm (130-400); Red Blood Count 4.08 10^6/uL (4.1-5.3); Red Cell Distribution Width 13.4 % (12.1-15.1); White Blood Count 6.5 10^3/uL (4.0-10.0)
[2020-10-14 13:52] LABS: Alanine Aminotransferase 32 U/L (0-33); Alkaline Phosphatase 51 IU/L (35-105); Aspartate Amino Transferase 24 U/L (0-32); Blood Urea Nitrogen 22 mg/dL (8-23); Calcium 10.1 mg/dL (8.5-10.5); Carbon Dioxide 26 mmol/L (22-29); Chloride 111 mmol/L (98-107); Globulin 2.5 g/dL (1.3-4.6); Glucose 90 mg/dL (65-115); Osmolality Calculated 303 mOsm/kg (285-295); Sodium 145 mmol/L (136-145); Total Bilirubin 0.5 mg/dL (0.15-1.2); Total Protein 6.5 g/dL (6.6-8.7)
--- NOTE | 2020-10-18 11:39 | ONC FU_ITS ---
Dr. Bedolla Patient Follow-Up Note Patient: Sophia Ugarte Unit #: [id number]: [id number] Dicatated By: Demetris Bedolla M.D.Date of Visit:Oct 14, 2020 Onc Med Follow-up/Prog Note Chief Complaint: Breast cancer. History of Present Illness: This is a 70 year-old woman with history of left breast cancer, subsequently found to have multifocal infiltrating ductal carcinoma of the right breast, stage IIA (T1c, pN1a, M0), ER/WA positive and HER-2/alicia negative. She had presented with an abnormal screening mammogram. She underwent excisional biopsy on 05/15/2009. Pathology showed grade 2 infiltrating ductal carcinoma measuring 1.2 x 0.6 cm. There was tumor within 1 mm of the inked margin. She then underwent reexcision lumpectomy and axillary sentinel lymph node biopsy on 06/09/2009. There was no residual tumor in the reexcision specimen and there was no involvement in 1 sentinel lymph node. As such, her disease was stage IA (T1c, N0, M0). Oncotype DX showed a recurrence score of 10, low risk category. She completed radiation to the left breast in July 2009 to a total dose of 6040 cGy. She had then started adjuvant hormonal therapy with Femara. It was stopped in August of 2010 because of increasing musculoskeletal pain. She then started Aromasin in March 2011. She had some pain on the Aromasin also, but initially it was tolerable. However, by July 2012 her pain had increased significantly, and at that point I did have her stop treatment. She started tamoxifen in September 2012. She had presented to Dr. Peterson in December 2012 with pain and swelling in her left leg. A venous Doppler showed occlusive thrombus in the posterior tibial vein at the ankle. She was treated with Lovenox and subsequently with warfarin. Tamoxifen was discontinued. She restarted treatment with Aromasin in January 2013. I did have her stop in June 2015, at which point she had completed 5 years of hormonal therapy. During subsequent follow-up, she also developed atrial fibrillation, for which she has remained on chronic anticoagulation with warfarin. She had evidence of osteoporosis on her baseline bone density study. She was given IV Zometa, but it was stopped after the initial infusion because of side effects. Her laboratory studies in July 2012 showed a mildly elevated serum calcium, and I also had her stop her calcium supplement at that time, but she continued to take vitamin D. Her most recent bone density study, from October 2013, showed a T score of -2.2 in the lumbar spine. She was found to have an adenomatous polyp in the sigmoid colon on colonoscopy in May 2010. She has continued on observation/expectant management for the breast cancer. As of her follow-up visit on 10/17/2017 she appeared to be doing well clinically other than her yearly mammogram from 10/10/2018 was BI-RADS 0 with finding of questionable developing focal asymmetries in the right upper and lower outer quadrants. Additional mammogram views and right breast ultrasound on 10/20/2018 were BI-RADS 4C, suspicious with ultrasound showing 3 suspicious lesions at the 12:00 position and one additional lesion in the subareolar area at the 6:00 position. On 11/06/2018 she underwent biopsies of 2 lesions at the 12:00 position and biopsy of the lesion at 6:00. All showed infiltrating ductal carcinoma. One of the 12:00 lesions was grade 1. The other 2 lesions were grade 2. The breast prognostic profile from the 6:00 lesion showed ER positive at 87% and WA positive at 62%. The HER-2/alicia results are still pending. The Ki-67 was intermediate at 14%. On 11/30/2018 she underwent bilateral simple mastectomy with right axillary sentinel lymph node biopsy. Pathology on the right breast showed grade 2 infiltrating ductal carcinoma with the tumor in the subareolar location and measuring 1.6 x 1.0 cm. The margins were free of tumor. There were fibrocystic changes noted in both breasts. There was involvement in 1 axillary sentinel lymph node. With those findings she had further evaluation with Oncotype DX. It showed a recurrence score of 22, corresponding to an 18% risk of distant recurrence at 9 years with adjuvant hormonal therapy. The absolute benefit with addition of adjuvant chemotherapy was estimated at approximately 1%. I had seen her for a followup visit on 01/02/2019. Given the Oncotype DX results, she began adjuvant hormonal therapy with exemestane 25 mg daily. In April 2019 she began treatment with Prolia, as her repeat DEXA scan on 10/20/2018 had shown osteopenia with T score -2.3 in the lumbar spine, -2.1 in the left hip, and -1.7 in the right hip. She is seen for a follow-up visit. She has not been feeling very good, as she has had significant worsening of generalized aches and pains, not only in the joints but also in her muscles. The most significant pain is in her back and knees. She does not have much energy. She is still doing light housework. ECOG score is 1. She has good appetite. She has not had fever. She does have hot flashes/sweating. She has some sinus drainage with associated cough, and she has some shortness of breath with activity. She does not complain of chest pain. She is nauseated at times and she also has some acid reflux. She also reports having pain in her lower abdominal area. Bowel and bladder function have been okay. She has occasional headache. She has numbness/tingling in her fingers and in her feet. Medications: Colace 1 Capsule (of 100 mg) Oral daily PRN, Coumadin (5 mg) Tablet Oral Take as Directed, D 1000 1 Tablet (of 1000 Units) Oral daily, Latanoprost 1 Dual Pack (of 0.005 %) Solution Ophthalmic at bedtime, Metoprolol Succinate ER 1 Tablet (of 50 mg) Tablet SR 24 HR Oral daily, Multivitamin Adult 1 Tablet Oral daily, Pantoprazole Sodium 1 Tablet (of 40 mg) Tablet, enteric coated Oral daily PRN, Tylenol 1 Tablet (of 500 mg) Oral q 6 hours PRN Allergies: Reglan, Sulfamethoxazole-Trimethoprim, and zometa. Vital Signs: Performed on Oct 14, 2020 14:03 Height - 68.00 in Weight - 177.6 lbs (HIGH) BSA - 1.94 sq.m BMI - 27.00 Temperature - 97.2 F (LOW) Pulse - 93 /min Respiration - 17 /min BP - 125/84 mm(hg) O2 Sat - 97 % Pain - 4 Physical Examination: Constitutional - She looks pretty good generally, Eyes - Sclerae nonicteric. Conjunctivae clear, ENMT - No lesions noted in the oral cavity, Hematologic/Lymphatic - No cervical, clavicular, or axillary adenopathy, Respiratory - Lungs are clear with good air movement bilaterally, Cardiovascular - Heart rhythm is irregular. There is no murmur, gallop, or rub noted, Abdomen - Soft. She does have mild, generalized abdominal tenderness. Liver and spleen are not enlarged. There is no abdominal mass or ascites noted and there is no inguinal adenopathy, Extremities - Slight edema, Neurologic - No focal neurologic deficits noted. Lab/Imaging: CBC shows hemoglobin 14.0 g, white blood cell count 6500, and platelet count 235,000. Comprehensive metabolic profile is unremarkable. Problem List: 1. History of grade 2 infiltrating ductal carcinoma of the left breast, stage IA (T1c, N0, M0), ER/WA positive and HER-2/alicia negative. Her disease appeared to be low risk by Oncotype DX (recurrence score 10). Her previous treatment included lumpectomy and axillary sentinel lymph node biopsy followed by radiation, completed in July 2009 to a total dose of 6040 cGy. She was given adjuvant hormonal therapy, initially with letrozole and subsequently with exemestane. She has had relatively poor tolerance for aromatase inhibitors, which she continued until July 2012. She was then on tamoxifen briefly. She restarted treatment with exemestane as of January 2013. She was able to tolerate it with acceptable toxicity. She stopped exemestane in June 2015 after completing 5 years of endocrine therapy. 2. In November 2018 she was diagnosed with multifocal infiltrating ductal carcinoma of the right breast, grade 2, stage IIA (T1c, pN1a, M0), ER/WA positive and HER-2/alicia negative. Oncotype DX recurrence score was 22, corresponding to an 18% risk of distant recurrence at 9 years with adjuvant hormonal therapy. The absolute benefit with adjuvant chemotherapy was estimated at approximately 1%. She underwent bilateral simple mastectomy with right axillary sentinel lymph node biopsy on 11/30/2018. 3. She has additional history of lower extremity deep vein thrombosis which developed within 3 months of starting treatment with tamoxifen in 2012. 4. Atrial fibrillation. 5. Osteoporosis. 6. She has a history of colonic polyps. Problems Addressed with this Encounter and Plan: 1. Patient with multifocal infiltrating ductal carcinoma of the right breast, grade 2, stage IIA (T1c, pN1a, M0), ER/WA positive and HER-2/alicia negative. Oncotype DX recurrence score was 22, corresponding to an 18% risk of distant recurrence at 9 years with adjuvant hormonal therapy. The absolute benefit with adjuvant chemotherapy was estimated at approximately 1%. She underwent bilateral simple mastectomy with right axillary sentinel lymph node biopsy on 11/30/2018. In December 2018 she began adjuvant hormonal therapy with exemestane. During followup she complained of fatigue and musculoskeletal pain, though she felt the side effects were tolerable. As of her visit on 04/14/2020 she continued the exemestane at 25 mg daily. However, she comes in now significant worsening of the musculoskeletal pain, and she is advised to stop her treatment. She will be scheduled for a follow-up visit in 1 month. 2. In April 2019 she began treatment with Prolia for the osteoporosis. Thus far she has tolerated it with no adverse effects, but at least for now that treatment will also be put on hold. Signed By: Demetris Bedolla M.D. <<Signature on File>>
== END 2020-10-14 12:20 | disposition home or self-care (01) ==
LOC: ONCMED 12:22
PROVIDERS: PCP Nurse Practitioner Family; Visit Provider Internal Medicine Medical Oncology
DX: C50.811 Malignant neoplasm of overlapping sites of right female breast (principal); M81.0 Age-related osteoporosis without current pathological fracture; M79.10 Myalgia, unspecified site; T45.1X5A Adverse effect of antineoplastic and immunosuppressive drugs, initial encounter; Z17.0 Estrogen receptor positive status [ER+]; Z85.3 Personal history of malignant neoplasm of breast; Z90.13 Acquired absence of bilateral breasts and nipples; Z86.718 Personal history of other venous thrombosis and embolism; Z79.01 Long term (current) use of anticoagulants; Z92.3 Personal history of irradiation; Z79.811 Long term (current) use of aromatase inhibitors
CPT/HCPCS: 36415; 80053; 85025; 99214

== ENCOUNTER 2020-11-13 09:58 | Outpatient (CLI) | payer MEDICARE, OTHER, SELFPAY ==
--- NOTE | 2020-11-16 10:13 | ONC FU_ITS ---
Dr. Bedolla Patient Follow-Up Note Patient: Sophia Ugarte Unit #: [id number]: 1950 Dicatated By: Demetris Bedolla M.D.Date of Visit:November 13, 2020 Onc Med Follow-up/Prog Note Chief Complaint: Breast cancer. History of Present Illness: This is a 70 year-old woman with history of left breast cancer, subsequently found to have multifocal infiltrating ductal carcinoma of the right breast, stage IA (T1c, pN1a, M0), ER/NV positive and HER-2/alicia negative. She had presented with an abnormal screening mammogram. She underwent excisional biopsy on 05/15/2009. Pathology showed grade 2 infiltrating ductal carcinoma measuring 1.2 x 0.6 cm. There was tumor within 1 mm of the inked margin. She then underwent reexcision lumpectomy and axillary sentinel lymph node biopsy on 06/09/2009. There was no residual tumor in the reexcision specimen and there was no involvement in 1 sentinel lymph node. As such, her disease was stage IA (T1c, N0, M0). Oncotype DX showed a recurrence score of 10, low risk category. She completed radiation to the left breast in July 2009 to a total dose of 6040 cGy. She had then started adjuvant hormonal therapy with Femara. It was stopped in August of 2010 because of increasing musculoskeletal pain. She then started Aromasin in March 2011. She had some pain on the Aromasin also, but initially it was tolerable. However, by July 2012 her pain had increased significantly, and at that point I did have her stop treatment. She started tamoxifen in September 2012. She had presented to Dr. Peterson in December 2012 with pain and swelling in her left leg. A venous Doppler showed occlusive thrombus in the posterior tibial vein at the ankle. She was treated with Lovenox and subsequently with warfarin. Tamoxifen was discontinued. She restarted treatment with Aromasin in January 2013. I did have her stop in June 2015, at which point she had completed 5 years of hormonal therapy. During subsequent follow-up, she also developed atrial fibrillation, for which she has remained on chronic anticoagulation with warfarin. She had evidence of osteoporosis on her baseline bone density study. She was given IV Zometa, but it was stopped after the initial infusion because of side effects. Her laboratory studies in July 2012 showed a mildly elevated serum calcium, and I also had her stop her calcium supplement at that time, but she continued to take vitamin D. Her most recent bone density study, from October 2013, showed a T score of -2.2 in the lumbar spine. She was found to have an adenomatous polyp in the sigmoid colon on colonoscopy in May 2010. She has continued on observation/expectant management for the breast cancer. As of her follow-up visit on 10/17/2017 she appeared to be doing well clinically other than her yearly mammogram from 10/10/2018 was BI-RADS 0 with finding of questionable developing focal asymmetries in the right upper and lower outer quadrants. Additional mammogram views and right breast ultrasound on 10/20/2018 were BI-RADS 4C, suspicious with ultrasound showing 3 suspicious lesions at the 12:00 position and one additional lesion in the subareolar area at the 6:00 position. On 11/06/2018 she underwent biopsies of 2 lesions at the 12:00 position and biopsy of the lesion at 6:00. All showed infiltrating ductal carcinoma. One of the 12:00 lesions was grade 1. The other 2 lesions were grade 2. The breast prognostic profile from the 6:00 lesion showed ER positive at 87% and NV positive at 62%. The tumor was negative for overexpression of HER-2/alicia, 1+ by IHC and amplification ratio by FISH of 1.1 with 2.7 HER-2 copies/cell. The Ki-67 was intermediate at 17%. On 11/30/2018 she underwent bilateral simple mastectomy with right axillary sentinel lymph node biopsy. Pathology on the right breast showed grade 2 infiltrating ductal carcinoma with the tumor in the subareolar location and measuring 1.6 x 1.0 cm. The margins were free of tumor. There were fibrocystic changes noted in both breasts. There was involvement in 1 axillary sentinel lymph node. With those findings she had further evaluation with Oncotype DX. It showed a recurrence score of 22, corresponding to an 18% risk of distant recurrence at 9 years with adjuvant hormonal therapy. The absolute benefit with addition of adjuvant chemotherapy was estimated at approximately 1%. I had seen her for a followup visit on 01/02/2019. Given the Oncotype DX results, she began adjuvant hormonal therapy with exemestane 25 mg daily. In April 2019 she began treatment with Prolia, as her repeat DEXA scan on 10/20/2018 had shown osteopenia with T score -2.3 in the lumbar spine, -2.1 in the left hip, and -1.7 in the right hip. She was started on treatment with Prolia. As of her follow-up visit on 10/14/2020 both the Prolia and exemestane were put on hold due to increased musculoskeletal pain. She is seen for a follow-up visit. She says she is feeling about the same. The pain in her hands may be a little better but she still has awful pain in her knees and hips. Overall, it has not improved significantly after stopping the exemestane. She also complains that she has no energy. She is able to do light work. ECOG score is 1. She has good appetite. She has not had fever. She sometimes has hot flashes/sweating. She has some sinus drainage and cough, presumably allergy related. She has shortness of breath with activity. She does not complain of chest pain. Lately she has had some nausea. She has acid reflux. She manages it with Protonix as needed. Bowel and bladder function have been okay. She occasionally has headache. She has neuropathy in her hands and feet. Medications: Coumadin (5 mg) Tablet Oral Take as Directed, D 1000 1 Tablet (of 1000 Units) Oral daily, Latanoprost 1 Dual Pack (of 0.005 %) Solution Ophthalmic at bedtime, Metoprolol Succinate ER 1 Tablet (of 50 mg) Tablet SR 24 HR Oral daily, Multivitamin Adult 1 Tablet Oral daily, Pantoprazole Sodium 1 Tablet (of 40 mg) Tablet, enteric coated Oral daily PRN, Senna S (8.6-50 mg) Tablet Oral daily, Tylenol 1 Tablet (of 500 mg) Oral q 6 hours PRN Allergies: Reglan, Sulfamethoxazole-Trimethoprim, and zometa. Vital Signs: Performed on November 13, 2020 10:16 Height - 68.00 in Weight - 179.2 lbs (HIGH) BSA - 1.95 sq.m BMI - 27.25 Temperature - 98.7 F Pulse - 82 /min Respiration - 18 /min BP - 143/81 mm(hg) (HIGH) O2 Sat - 99 % Pain - 5 Fatigue - 6 Physical Examination: Constitutional - She looks pretty good generally, Eyes - Sclerae nonicteric. Conjunctivae clear, ENMT - No lesions noted in the oral cavity, Hematologic/Lymphatic - No cervical, clavicular, or axillary adenopathy, Respiratory - Lungs are clear with good air movement bilaterally, Cardiovascular - Heart rhythm is irregular. There is no murmur, gallop, or rub noted, Abdomen - Soft. Liver and spleen are not enlarged. There is no abdominal mass or ascites noted and there is no inguinal adenopathy, Extremities - Mild edema, Neurologic - No focal neurologic deficits noted. Problem List: 1. History of grade 2 infiltrating ductal carcinoma of the left breast, stage IA (T1c, N0, M0), ER/NV positive and HER-2/alicia negative. Her disease appeared to be low risk by Oncotype DX (recurrence score 10). Her previous treatment included lumpectomy and axillary sentinel lymph node biopsy followed by radiation, completed in July 2009 to a total dose of 6040 cGy. She was given adjuvant hormonal therapy, initially with letrozole and subsequently with exemestane. She has had relatively poor tolerance for aromatase inhibitors, which she continued until July 2012. She was then on tamoxifen briefly. She restarted treatment with exemestane as of January 2013. She was able to tolerate it with acceptable toxicity. She stopped exemestane in June 2015 after completing 5 years of endocrine therapy. 2. In November 2018 she was diagnosed with multifocal infiltrating ductal carcinoma of the right breast, grade 2, stage IA (T1c, pN1a, M0), ER/NV positive and HER-2/alicia negative. Oncotype DX recurrence score was 22, corresponding to an 18% risk of distant recurrence at 9 years with adjuvant hormonal therapy. The absolute benefit with adjuvant chemotherapy was estimated at approximately 1%. She underwent bilateral simple mastectomy with right axillary sentinel lymph node biopsy on 11/30/2018. 3. She has additional history of lower extremity deep vein thrombosis which developed within 3 months of starting treatment with tamoxifen in 2012. 4. Atrial fibrillation. 5. Osteoporosis. 6. She has a history of colonic polyps. Problems Addressed with this Encounter and Plan: 1. Patient with multifocal infiltrating ductal carcinoma of the right breast, grade 2, stage IA (T1c, pN1a, M0), ER/NV positive and HER-2/alicia negative. Oncotype DX recurrence score was 22, corresponding to an 18% risk of distant recurrence at 9 years with adjuvant hormonal therapy. The absolute benefit with adjuvant chemotherapy was estimated at approximately 1%. She underwent bilateral simple mastectomy with right axillary sentinel lymph node biopsy on 11/30/2018. In December 2018 she began adjuvant hormonal therapy with exemestane. During followup she complained of fatigue and musculoskeletal pain, though she felt the side effects were tolerable. As of her visit on 04/14/2020 she continued the exemestane at 25 mg daily. As of her follow-up visit in October 2020 the exemestane was put on hold due to increased joint pain. The pain, though, has not improved significantly after stopping the medication. As such, she is going to restart the exemestane at 25 mg daily. She will be scheduled for a follow-up visit in 3 months. 2. In April 2019 she began treatment with Prolia for the osteoporosis. She had initially tolerated it well. It was also put on hold as of October 2020. At this point I will repeat her DEXA scan I will restart the Prolia as indicated. Signed By: Demetris Bedolla M.D. <<Signature on File>>
== END 2020-11-13 09:59 | disposition home or self-care (01) ==
PROVIDERS: PCP Nurse Practitioner Family; Visit Provider Internal Medicine Medical Oncology
DX: C50.812 Malignant neoplasm of overlapping sites of left female breast (principal); C50.811 Malignant neoplasm of overlapping sites of right female breast; Z17.0 Estrogen receptor positive status [ER+]; Z90.12 Acquired absence of left breast and nipple; Z90.11 Acquired absence of right breast and nipple; I48.20 Chronic atrial fibrillation, unspecified; M81.0 Age-related osteoporosis without current pathological fracture; Z86.010 Personal history of colon polyps; Z86.718 Personal history of other venous thrombosis and embolism; Z79.811 Long term (current) use of aromatase inhibitors; Z79.899 Other long term (current) drug therapy; Z92.21 Personal history of antineoplastic chemotherapy
CPT/HCPCS: 99214

== ENCOUNTER 2020-11-25 13:51 | Outpatient (CLI) | payer MEDICARE, OTHER, SELFPAY ==
--- NOTE | 2020-11-25 14:07 | XR_ITS ---
WS: [id number] DEXA (DUAL ENERGY X-RAY ABSORPTIOMETRY) Bone mineral density was performed using a [employer] machine. HISTORY: OSTEOPOROSIS EVALUATION, MALIGNANT NEOPLASM OF BREAST AND CO COMPARISON: 10/20/2018 Lumbar spine BMD (L1-L4): 0.916 g/cm2 T score: -2.2 Z score: -1.0 Total hip BMD: Left: 0.747 g/cm2. T score: -2.1 Z score: -0.9 Right: 0.786 g/cm2. T score: -1.8 Z score: -0.5 10 year probability of a major osteoporotic fracture is 21%. Compared to the prior study from 10/20/2018. Lumbar spine bone mineral density has increased by 1.1%. Bilateral hips bone mineral density has the by 0.5%. XR/XR DEXA axial skeleton* [id number] IMPRESSION: OSTEOPENIA based upon the WHO classification for females. No significant change in bone mineral density since the prior exam.
== END 2020-11-25 13:52 | disposition home or self-care (01) ==
PROVIDERS: PCP Nurse Practitioner Family; Visit Provider Internal Medicine Medical Oncology
DX: M81.0 Age-related osteoporosis without current pathological fracture (principal); M85.89 Other specified disorders of bone density and structure, multiple sites
CPT/HCPCS: 77080

== ENCOUNTER → 2020-11-27 13:35 | Outpatient (BNVA) | payer MEDICARE, OTHER, SELFPAY | PROVIDERS: PCP Nurse Practitioner Family; Visit Provider Internal Medicine | DX: E78.5 Hyperlipidemia, unspecified (principal); I48.91 Unspecified atrial fibrillation | CPT/HCPCS: 80061 ==

== ENCOUNTER 2020-12-03 08:09 | Outpatient (CLI) | payer MEDICARE, OTHER, SELFPAY ==
[2020-12-03] MEDS: denosumab 60 mg SDV SUBCUT (08:30)
== END 2020-12-03 08:10 | disposition home or self-care (01) ==
LOC: ONCMED 08:13
PROVIDERS: PCP Nurse Practitioner Family; Visit Provider Nurse Practitioner
DX: M81.0 Age-related osteoporosis without current pathological fracture (principal)
CPT/HCPCS: 96372; J0897

== ENCOUNTER 2021-01-06 12:18 | Outpatient (CLI) | payer MEDICARE, OTHER, SELFPAY ==
--- NOTE | 2021-01-06 12:45 | USCV_ITS ---
Sophia Ugarte Age: 70 Gender: F : 1950 Exam Date: 01/06/2021 12:40 Ordering Phys: Piyush Aguirre M.D ([email or web address]) Technologist: JUANI [place] [facility] [place]ication: AFIB BP: 139 / 89 HR: 102 Rhythm: Atrial fibrillation Technical Quality: Good MEASUREMENTS (Male / Female) Normal Values 2D ECHO LV Diastolic Diameter PLAX 4.4 cm 4.2 - 5.9 / 3.9 - 5.3 cm LV Systolic Diameter PLAX 2.9 cm LV Chamber Size 3.3 cm IVS Diastolic Thickness 1.7 cm 0.6 - 1.0 / 0.6 - 0.9 cm IVS Systolic Thickness 1.8 cm LVPW Diastolic Thickness 1.3 cm 0.6 - 1.0 / 0.6 - 0.9 cm LVPW Systolic Thickness 1.1 cm RV Chamber Size 2.0 cm LVOT Diameter 2.0 cm LV Ejection Fraction 2D Teich 65.1 % LV Ejection Fraction MOD 2C 69.6 % LV Ejection Fraction 2C AL 71.0 % LA Diameter 4.7 cm LA Width 4.4 cm LA Height 5.9 cm RA Width 2.1 cm RA Height 5.7 cm M-MODE LV Diastolic Diameter MM 5.3 cm 4.2 - 5.9 / 3.9 - 5.3 cm LV Systolic Diameter MM 3.7 cm LV Ejection Fraction MM Teich 56.7 % IVS Diastolic Thickness MM 1.1 cm 0.6 - 1.0 / 0.6 - 0.9 cm IVS Systolic Thickness MM 1.6 cm LVPW Diastolic Thickness MM 0.9 cm 0.6 - 1.0 / 0.6 - 0.9 cm LVPW Systolic Thickness MM 1.5 cm Aortic Annulus Diameter 3.3 cm LA Ao Ratio MM 1.6 MV E Point Septal Separation 0.1 cm DOPPLER AV Peak Velocity 93.0 cm/s LVOT Peak Velocity 84.0 cm/s AV Area Cont Eq vti 2.3 cm squared AV Area Cont Eq pk 2.9 cm squared MV E' Velocity 16.0 cm/s TR Peak Velocity 242.6 cm/s TR Peak Gradient 23.5 mmHg TR Mean Velocity 186.8 cm/s TR Mean Gradient 15.0 mmHg TR Velocity Time Integral 66.2 cm TV Peak E Velocity 84.0 cm/s Right Atrial Pressure 3.0 mmHg Pulmonary Artery Systolic Pressu 26.5 mmHg PV Peak Velocity 76.0 cm/s RV Acceleration Time 0.1 s RV Ejection Time 0.3 s RV AcT/ET 0.4 FINDINGS Left Ventricle Normal left ventricular size. LV systolic function is normal with EF of 55-60%. No regional wall motion abnormalities. Concentric left ventricular hypertrophy is seen. Diastolic function is indeterminate because of atrial fibrillation. Right Ventricle The right ventricle is normal in size and function. Right Atrium The right atrium is normal in size. Left Atrium The left atrium is dilated Mitral Valve Structurally normal mitral valve without significant stenosis or prolapse. There is mild mitral regurgitation. Aortic Valve Structurally normal aortic valve without significant sclerosis or stenosis. There is no aortic regurgitation. Tricuspid Valve Structurally normal tricuspid valve without significant stenosis or regurgitation. Insufficient TR jet to calculate RVSP Pulmonic Valve Structurally normal pulmonic valve without significant stenosis. There is no pulmonic regurgitation. Pericardium Normal pericardium without effusion. Aorta Normal ascending aorta dimension. CONCLUSIONS LV systolic function is normal with EF of 55-60% Concentric left ventricular hypertrophy Left atrium is dilated Mild mitral regurgitation Compared to prior echocardiogram from 01/09/2014, no significant changes are noted Piyush Aguirre MD (Electronically Signed) Final Date: 12 January 2021 16:54 S
== END 2021-01-06 12:19 | disposition home or self-care (01) ==
LOC: US 12:20
PROVIDERS: PCP Nurse Practitioner Family; Visit Provider Internal Medicine
DX: I48.91 Unspecified atrial fibrillation (principal); I34.0 Nonrheumatic mitral (valve) insufficiency
CPT/HCPCS: 93306

== ENCOUNTER 2021-02-12 13:41 | Outpatient (CLI) | payer MEDICARE, OTHER, SELFPAY ==
--- NOTE | 2021-02-15 14:58 | ONC FU_ITS ---
Dr. Bedolla Patient Follow-Up Note Patient: Sophia Ugarte Unit #: [id number]: 1950 Dicatated By: Demetris Bedolla M.D.Date of Visit:Feb 12, 2021 Onc Med Follow-up/Prog Note Chief Complaint: Breast cancer. History of Present Illness: This is a 70 year-old woman with history of left breast cancer, subsequently found to have multifocal infiltrating ductal carcinoma of the right breast, stage IA (T1c, pN1a, M0), ER/WA positive and HER-2/alicia negative. She had presented with an abnormal screening mammogram. She underwent excisional biopsy on 05/15/2009. Pathology showed grade 2 infiltrating ductal carcinoma measuring 1.2 x 0.6 cm. There was tumor within 1 mm of the inked margin. She then underwent reexcision lumpectomy and axillary sentinel lymph node biopsy on 06/09/2009. There was no residual tumor in the reexcision specimen and there was no involvement in 1 sentinel lymph node. As such, her disease was stage IA (T1c, N0, M0). Oncotype DX showed a recurrence score of 10, low risk category. She completed radiation to the left breast in July 2009 to a total dose of 6040 cGy. She had then started adjuvant hormonal therapy with Femara. It was stopped in August of 2010 because of increasing musculoskeletal pain. She then started Aromasin in March 2011. She had some pain on the Aromasin also, but initially it was tolerable. However, by July 2012 her pain had increased significantly, and at that point I did have her stop treatment. She started tamoxifen in September 2012. She had presented to Dr. Peterson in December 2012 with pain and swelling in her left leg. A venous Doppler showed occlusive thrombus in the posterior tibial vein at the ankle. She was treated with Lovenox and subsequently with warfarin. Tamoxifen was discontinued. She restarted treatment with Aromasin in January 2013. I did have her stop in June 2015, at which point she had completed 5 years of hormonal therapy. During subsequent follow-up, she also developed atrial fibrillation, for which she has remained on chronic anticoagulation with warfarin. She had evidence of osteoporosis on her baseline bone density study. She was given IV Zometa, but it was stopped after the initial infusion because of side effects. Her laboratory studies in July 2012 showed a mildly elevated serum calcium, and I also had her stop her calcium supplement at that time, but she continued to take vitamin D. Her most recent bone density study, from October 2013, showed a T score of -2.2 in the lumbar spine. She was found to have an adenomatous polyp in the sigmoid colon on colonoscopy in May 2010. She has continued on observation/expectant management for the breast cancer. As of her follow-up visit on 10/17/2017 she appeared to be doing well clinically other than her yearly mammogram from 10/10/2018 was BI-RADS 0 with finding of questionable developing focal asymmetries in the right upper and lower outer quadrants. Additional mammogram views and right breast ultrasound on 10/20/2018 were BI-RADS 4C, suspicious with ultrasound showing 3 suspicious lesions at the 12:00 position and one additional lesion in the subareolar area at the 6:00 position. On 11/06/2018 she underwent biopsies of 2 lesions at the 12:00 position and biopsy of the lesion at 6:00. All showed infiltrating ductal carcinoma. One of the 12:00 lesions was grade 1. The other 2 lesions were grade 2. The breast prognostic profile from the 6:00 lesion showed ER positive at 87% and WA positive at 62%. The tumor was negative for overexpression of HER-2/alicia, 1+ by IHC and amplification ratio by FISH of 1.1 with 2.7 HER-2 copies/cell. The Ki-67 was intermediate at 17%. On 11/30/2018 she underwent bilateral simple mastectomy with right axillary sentinel lymph node biopsy. Pathology on the right breast showed grade 2 infiltrating ductal carcinoma with the tumor in the subareolar location and measuring 1.6 x 1.0 cm. The margins were free of tumor. There were fibrocystic changes noted in both breasts. There was involvement in 1 axillary sentinel lymph node. With those findings she had further evaluation with Oncotype DX. It showed a recurrence score of 22, corresponding to an 18% risk of distant recurrence at 9 years with adjuvant hormonal therapy. The absolute benefit with addition of adjuvant chemotherapy was estimated at approximately 1%. I had seen her for a followup visit on 01/02/2019. Given the Oncotype DX results, she began adjuvant hormonal therapy with exemestane 25 mg daily. In April 2019 she began treatment with Prolia, as her repeat DEXA scan on 10/20/2018 had shown osteopenia with T score -2.3 in the lumbar spine, -2.1 in the left hip, and -1.7 in the right hip. She was started on treatment with Prolia. As of her follow-up visit on 10/14/2020 both the Prolia and exemestane were put on hold due to increased musculoskeletal pain. However, at her 1-month interval follow-up visit she has noted no significant improvement in the pain, and at that point she did opt to restart the exemestane at 25 mg daily. She is seen for a follow-up visit. Since she has been back on the exemestane she has noted some increase in generalized joint pain. The most significant pain is in her knees. She also says that her muscles feel sore. However, she feels that the pain is tolerable. She complains that she feels draggy. She is able to do light work. ECOG score is 1. She has good appetite. She has not had fever. She does have some hot flashes and sweating. She has shortness of breath with more strenuous activity. She does not complain of cough and she has not been having chest pain. She sometimes has nausea. She has acid reflux, but it is adequately managed with medication. She has no complaints with bowel or bladder function. She has occasional headache. She does not complain of dizziness. She has numbness/tingling in her feet and hands. Medications: Coumadin (5 mg) Tablet Oral Take as Directed, D 1000 1 Tablet (of 1000 Units) Oral daily, Latanoprost 1 Dual Pack (of 0.005 %) Solution Ophthalmic at bedtime, Metoprolol Succinate ER 1 Tablet (of 50 mg) Tablet SR 24 HR Oral daily, Multivitamin Adult 1 Tablet Oral daily, Pantoprazole Sodium 1 Tablet (of 40 mg) Tablet, enteric coated Oral daily PRN, Senna S (8.6-50 mg) Tablet Oral daily, Tylenol 1 Tablet (of 500 mg) Oral q 6 hours PRN Allergies: Reglan, Sulfamethoxazole-Trimethoprim, and zometa. Vital Signs: Performed on Feb 12, 2021 14:04 Height - 68.00 in Weight - 178.2 lbs (LOW) BSA - 1.95 sq.m BMI - 27.10 Temperature - 96 F (LOW) Pulse - 84 /min Respiration - 18 /min BP - 127/87 mm(hg) O2 Sat - 97 % Pain - 0 Fatigue - 4 Physical Examination: Constitutional - She looks pretty good generally, Eyes - Sclerae nonicteric. Conjunctivae clear, ENMT - No lesions noted in the oral cavity, Hematologic/Lymphatic - No cervical, clavicular, or axillary adenopathy, Respiratory - Lungs are clear with good air movement bilaterally, Cardiovascular - Heart rhythm is irregular. There is no murmur, gallop, or rub noted, Abdomen - Soft. Liver and spleen are not enlarged. There is no abdominal mass or ascites noted and there is no inguinal adenopathy, Extremities - Mild edema, Neurologic - No focal neurologic deficits noted. Problem List: 1. History of grade 2 infiltrating ductal carcinoma of the left breast, stage IA (T1c, N0, M0), ER/WA positive and HER-2/alicia negative. Her disease appeared to be low risk by Oncotype DX (recurrence score 10). Her previous treatment included lumpectomy and axillary sentinel lymph node biopsy followed by radiation, completed in July 2009 to a total dose of 6040 cGy. She was given adjuvant hormonal therapy, initially with letrozole and subsequently with exemestane. She has had relatively poor tolerance for aromatase inhibitors, which she continued until July 2012. She was then on tamoxifen briefly. She restarted treatment with exemestane as of January 2013. She was able to tolerate it with acceptable toxicity. She stopped exemestane in June 2015 after completing 5 years of endocrine therapy. 2. In November 2018 she was diagnosed with multifocal infiltrating ductal carcinoma of the right breast, grade 2, stage IA (T1c, pN1a, M0), ER/WA positive and HER-2/alicia negative. Oncotype DX recurrence score was 22, corresponding to an 18% risk of distant recurrence at 9 years with adjuvant hormonal therapy. The absolute benefit with adjuvant chemotherapy was estimated at approximately 1%. She underwent bilateral simple mastectomy with right axillary sentinel lymph node biopsy on 11/30/2018. 3. She has additional history of lower extremity deep vein thrombosis which developed within 3 months of starting treatment with tamoxifen in 2012. 4. Atrial fibrillation. 5. Osteoporosis. 6. She has a history of colonic polyps. Problems Addressed with this Encounter and Plan: 1. Patient with multifocal infiltrating ductal carcinoma of the right breast, grade 2, stage IA (T1c, pN1a, M0), ER/WA positive and HER-2/alicia negative. Oncotype DX recurrence score was 22, corresponding to an 18% risk of distant recurrence at 9 years with adjuvant hormonal therapy. The absolute benefit with adjuvant chemotherapy was estimated at approximately 1%. She underwent bilateral simple mastectomy with right axillary sentinel lymph node biopsy on 11/30/2018. In December 2018 she began adjuvant hormonal therapy with exemestane. During followup she complained of fatigue and musculoskeletal pain, though she felt the side effects were tolerable. As of her visit on 04/14/2020 she continued the exemestane at 25 mg daily. As of her follow-up visit in October 2020 the exemestane was put on hold due to increased joint pain. At her 1-month interval follow-up visit, her pain had not improved significantly, and she did opt to restart the exemestane at 25 mg daily. At this point she continues to have significant musculoskeletal pain and she also is having some fatigue. At least some component of this is attributable to the exemestane, but she feels that it is tolerable. As such, she continues her adjuvant hormonal therapy with exemestane 25 mg daily. I will see her again in 3 months. 2. In April 2019 she began treatment with Prolia for the osteoporosis. She had initially tolerated it well. She will be due for treatment again with her next visit. Signed By: Demetris Bedolla M.D. <<Signature on File>>
== END 2021-02-12 13:42 | disposition home or self-care (01) ==
LOC: ONCMED 13:46
PROVIDERS: PCP Nurse Practitioner Family; Visit Provider Internal Medicine Medical Oncology
DX: C50.812 Malignant neoplasm of overlapping sites of left female breast (principal); C50.811 Malignant neoplasm of overlapping sites of right female breast; Z17.0 Estrogen receptor positive status [ER+]; Z90.11 Acquired absence of right breast and nipple; Z90.12 Acquired absence of left breast and nipple; Z79.811 Long term (current) use of aromatase inhibitors; I48.91 Unspecified atrial fibrillation; M81.0 Age-related osteoporosis without current pathological fracture; Z86.010 Personal history of colon polyps; Z86.718 Personal history of other venous thrombosis and embolism; Z79.01 Long term (current) use of anticoagulants; Z79.899 Other long term (current) drug therapy; Z92.3 Personal history of irradiation; Z92.21 Personal history of antineoplastic chemotherapy
CPT/HCPCS: 99214

== ENCOUNTER 2021-02-19 13:18 | Outpatient (CLI) | payer MEDICARE, OTHER, SELFPAY ==
--- NOTE | 2021-02-19 14:18 | CT_ITS ---
WS: [id number] CT ABDOMEN AND PELVIS WITH CONTRAST HISTORY: BREAST CANCER, RETROCRURAL NODULE TECHNIQUE: Imaging performed of the abdomen and pelvis with IV contrast. Single phase imaging of the abdomen. Coronal and sagittal reformats are submitted. All CT scans at [facility] use at least one of these dose optimization techniques: automated exposure control; mA and/or kV adjustment per patient size (includes targeted exams where dose is matched to clinical indication); or iterativ e reconstruction. IV CONTRAST: Omnipaque 300; 95 mL IV. Oral contrast: Yes. DLP: 1068.86 mGycm COMPARISON: PET/CT 08/30/[address] abdomen and pelvis 08/07/2020. Lower thorax: Lung bases are clear. Moderate enlargement the heart. Similar to the prior study. Moder ate size hiatal hernia. Air-fluid level in the hiatal hernia with reflux of oral contrast into the he rnia. Liver/biliary system: Normal size liver. Mild central biliary duct dilatation. No metastatic disease. Gallbladder: Status post cholecystectomy. Pancreas: Normal size pancreas and pancreatic duct. No adjacent inflammation. Spleen: Normal size spleen. No mass or infarct. Adrenal glands: Normal. Right kidney: No renal obstruction. There is a small extrarenal pelvis which is stable. Left kidney: Lobulated cortical surface pole measures 2.1 x 1.3 cm. Small extrarenal pelvis with no o bstruction. Aorta: Mild atherosclerosis with no aneurysm. Lymphadenopathy: No lymph nodes are identified. There is a low-attenuation nodule in the RIGHT retroc rural at the level of L1 measuring 10 x 12 mm. This was negative on recent PET/CT. I suspect this may be a bulbous dilatation of the cisterna chyli. Which is a normal convergence of lymphatic channels a t this level. Free fluid: None. GI tract: Appendix is not identified and previously removed. There is mild tortuosity of the colon wi th constipation. No obstruction. Numerous diverticula in the descending and sigmoid colon. Abdominal wall: Unremarkable abdominal wall. No hernia. Pelvis: No free fluid or adenopathy within the pelvis. Prior hysterectomy. No pelvic mass or fluid. U rinary bladder is only minimally distended. Bones: RIGHT curvature lumbar spine. Expansion of the neural foramen in the sacrum likely due to sacr al meningeal cysts. No interval change. CT/CT abdomen pelvis w con* [id number] IMPRESSION: 1. No change in the low-attenuation RIGHT retrocrural nodule. I suspect this i s probably normal mild bulbous dilatation of the cisterna chyli. If this is a l ymph node it was negative on recent PET/CT. 2. No evidence for metastatic disease to the abdomen or pelvis. 3. Prior cholecystectomy and physiologic bile duct dilatation is stable. 4. Distal colonic diverticulosis without acute diverticulitis.
[2021-02-19] MEDS: iohexol 300 mg/mL 50 mL Btl PO (14:21)
[2021-02-19 15:02] LABS: Blood Urea Nitrogen 9 mg/dL (8-23)
[2021-02-19] MEDS: iohexol 300 mg/mL 100 mL Btl IV (15:10)
== END 2021-02-19 13:19 | disposition home or self-care (01) ==
PROVIDERS: PCP Nurse Practitioner Family; Visit Provider Internal Medicine Medical Oncology
DX: C50.412 Malignant neoplasm of upper-outer quadrant of left female breast (principal); C50.811 Malignant neoplasm of overlapping sites of right female breast; K57.90 Diverticulosis of intestine, part unspecified, without perforation or abscess without bleeding; Z90.49 Acquired absence of other specified parts of digestive tract
CPT/HCPCS: 74177; 82565; 84520; Q9967

== ENCOUNTER 2021-06-02 10:59 | Outpatient (CLI) | payer MEDICARE, OTHER, SELFPAY ==
[2021-06-02 11:56] LABS: Basophils % 0.2 %; Eosinophils # 0.1 10^3/uL (0.0-0.8); Hemoglobin 13.6 g/dL (11.5-15.3); Lymphocytes # 1.5 10^3/uL (0.8-4.8); Lymphocytes % 18.5 %; Mean Corpuscular HGB Conc 34.9 g/dL (30.0-36.0); Mean Corpuscular Hemoglobin 34.3 pg (28.0-34.0); Mean Corpuscular Volume 98.2 fl (81-99); Monocytes # 0.7 10^3/uL (0.2-0.9); Monocytes % 8.5 %; Neutrophils # 5.73 10^3/uL (1.8-7.7); Neutrophils % 71.6 %; Nucleated Red Blood Cells % 0 %; Platelet Count 254 10^3/cmm (130-400); Red Blood Count 3.97 10^6/uL (4.1-5.3); Red Cell Distribution Width 13.1 % (12.1-15.1)
[2021-06-02 12:28] LABS: Alanine Aminotransferase 18 U/L (0-33); Albumin Level 4.1 g/dL (3.5-5.2); Alkaline Phosphatase 56 IU/L (35-105); Blood Urea Nitrogen 16 mg/dL (8-23); Calcium 9.9 mg/dL (8.5-10.5); Carbon Dioxide 26 mmol/L (22-29); Chloride 106 mmol/L (98-107); Glucose 98 mg/dL (65-115); Osmolality Calculated 293 mOsm/kg (285-295); Sodium 141 mmol/L (136-145); Total Bilirubin 0.4 mg/dL (0.15-1.2); Total Protein 7.1 g/dL (6.6-8.7)
[2021-06-02 12:42] LABS: 25 Hydroxy Vitamin D 78 ng/mL (30-100)
[2021-06-02 13:29] LABS: Anion Gap 13.2 (5-19); Aspartate Amino Transferase 18 U/L (0-32); Potassium 4.2 mmol/L (3.5-5.1)
== END 2021-06-02 11:00 | disposition home or self-care (01) ==
LOC: ONCMED 11:03
PROVIDERS: PCP Nurse Practitioner Family; Visit Provider Internal Medicine Medical Oncology
DX: C50.811 Malignant neoplasm of overlapping sites of right female breast (principal); Z17.0 Estrogen receptor positive status [ER+]; Z85.3 Personal history of malignant neoplasm of breast; E55.9 Vitamin D deficiency, unspecified
CPT/HCPCS: 36415; 80053; 82306; 85025

== ENCOUNTER 2021-06-08 06:51 | Outpatient (CLI) | payer MEDICARE, OTHER, SELFPAY ==
[2021-06-08 15:45] LABS: Vitamin B12 399 pg/mL (232-1245)
--- NOTE | 2021-06-12 19:59 | ONC FU_ITS ---
Dr. Bedolla Patient Follow-Up Note Patient: Sophia Ugarte Unit #: [id number]: 1950 Dicatated By: Demetris Bedolla M.D.Date of Visit:Jun 08, 2021 Onc Med Follow-up/Prog Note Chief Complaint: Breast cancer. History of Present Illness: This is a 70 year-old woman with history of left breast cancer, subsequently found to have multifocal infiltrating ductal carcinoma of the right breast, stage IA (T1c, pN1a, M0), ER/ME positive and HER-2/alicia negative. She had presented with an abnormal screening mammogram. She underwent excisional biopsy on 05/15/2009. Pathology showed grade 2 infiltrating ductal carcinoma measuring 1.2 x 0.6 cm. There was tumor within 1 mm of the inked margin. She then underwent reexcision lumpectomy and axillary sentinel lymph node biopsy on 06/09/2009. There was no residual tumor in the reexcision specimen and there was no involvement in 1 sentinel lymph node. As such, her disease was stage IA (T1c, N0, M0). Oncotype DX showed a recurrence score of 10, low risk category. She completed radiation to the left breast in July 2009 to a total dose of 6040 cGy. She had then started adjuvant hormonal therapy with Femara. It was stopped in August of 2010 because of increasing musculoskeletal pain. She then started Aromasin in March 2011. She had some pain on the Aromasin also, but initially it was tolerable. However, by July 2012 her pain had increased significantly, and at that point I did have her stop treatment. She started tamoxifen in September 2012. She had presented to Dr. Peterson in December 2012 with pain and swelling in her left leg. A venous Doppler showed occlusive thrombus in the posterior tibial vein at the ankle. She was treated with Lovenox and subsequently with warfarin. Tamoxifen was discontinued. She restarted treatment with Aromasin in January 2013. I did have her stop in June 2015, at which point she had completed 5 years of hormonal therapy. During subsequent follow-up, she also developed atrial fibrillation, for which she has remained on chronic anticoagulation with warfarin. She had evidence of osteoporosis on her baseline bone density study. She was given IV Zometa, but it was stopped after the initial infusion because of side effects. Her laboratory studies in July 2012 showed a mildly elevated serum calcium, and I also had her stop her calcium supplement at that time, but she continued to take vitamin D. Her most recent bone density study, from October 2013, showed a T score of -2.2 in the lumbar spine. She was found to have an adenomatous polyp in the sigmoid colon on colonoscopy in May 2010. She has continued on observation/expectant management for the breast cancer. As of her follow-up visit on 10/17/2017 she appeared to be doing well clinically other than her yearly mammogram from 10/10/2018 was BI-RADS 0 with finding of questionable developing focal asymmetries in the right upper and lower outer quadrants. Additional mammogram views and right breast ultrasound on 10/20/2018 were BI-RADS 4C, suspicious with ultrasound showing 3 suspicious lesions at the 12:00 position and one additional lesion in the subareolar area at the 6:00 position. On 11/06/2018 she underwent biopsies of 2 lesions at the 12:00 position and biopsy of the lesion at 6:00. All showed infiltrating ductal carcinoma. One of the 12:00 lesions was grade 1. The other 2 lesions were grade 2. The breast prognostic profile from the 6:00 lesion showed ER positive at 87% and ME positive at 62%. The tumor was negative for overexpression of HER-2/alicia, 1+ by IHC and amplification ratio by FISH of 1.1 with 2.7 HER-2 copies/cell. The Ki-67 was intermediate at 17%. On 11/30/2018 she underwent bilateral simple mastectomy with right axillary sentinel lymph node biopsy. Pathology on the right breast showed grade 2 infiltrating ductal carcinoma with the tumor in the subareolar location and measuring 1.6 x 1.0 cm. The margins were free of tumor. There were fibrocystic changes noted in both breasts. There was involvement in 1 axillary sentinel lymph node. With those findings she had further evaluation with Oncotype DX. It showed a recurrence score of 22, corresponding to an 18% risk of distant recurrence at 9 years with adjuvant hormonal therapy. The absolute benefit with addition of adjuvant chemotherapy was estimated at approximately 1%. I had seen her for a followup visit on 01/02/2019. Given the Oncotype DX results, she began adjuvant hormonal therapy with exemestane 25 mg daily. In April 2019 she began treatment with Prolia, as her repeat DEXA scan on 10/20/2018 had shown osteopenia with T score -2.3 in the lumbar spine, -2.1 in the left hip, and -1.7 in the right hip. She was started on treatment with Prolia. As of her follow-up visit on 10/14/2020 both the Prolia and exemestane were put on hold due to increased musculoskeletal pain. However, at her 1-month interval follow-up visit she has noted no significant improvement in the pain, and at that point she did opt to restart the exemestane at 25 mg daily. At her follow-up visit on 02/12/2021 she still reported having some fatigue and musculoskeletal pain, but she felt that it was tolerable, and she continued the exemestane. A repeat CT abdomen/pelvis on 02/19/2021 showed no change in the low-attenuation nodule in the right retrocrural area measuring 10 x 12 mm. Bolus dilatation of the cisterna chyli was suspected. She is seen for a follow-up visit. She says her energy is kind of low, but she is able to do light work. ECOG score is 1. She has good appetite. She has not had fever. She still sometimes has hot flashes/sweating. She has had little pain in the left jaw area. She has not had sore mouth or throat. She does not complain of cough, and she has not been having shortness of breath or chest pain. She sometimes has nausea. Her acid reflux is adequately managed with pantoprazole, which she takes only as needed. Bowel and bladder function remain adequate. Her joint pain is about the same. It remains tolerable. She occasionally has headache. She has some numbness/tingling in her hands and feet. Medications: Coumadin (5 mg) Tablet Oral Take as Directed, D 1000 1 Tablet (of 1000 Units) Oral daily, Latanoprost 1 Dual Pack (of 0.005 %) Solution Ophthalmic at bedtime, Metoprolol Succinate ER 1 Tablet (of 50 mg) Tablet SR 24 HR Oral daily, Multivitamin Adult 1 Tablet Oral daily, Pantoprazole Sodium 1 Tablet (of 40 mg) Tablet, enteric coated Oral daily PRN, Senna S (8.6-50 mg) Tablet Oral daily, Tylenol 1 Tablet (of 500 mg) Oral q 6 hours PRN Allergies: Reglan, Sulfamethoxazole-Trimethoprim, and zometa. Vital Signs: Performed on Jun 08, 2021 13:56 Height - 68.00 in Weight - 166.4 lbs (LOW) BSA - 1.89 sq.m BMI - 25.30 Temperature - 97.8 F (LOW) Pulse - 77 /min Respiration - 18 /min BP - 112/75 mm(hg) O2 Sat - 98 % Pain - 0 Fatigue - 6 Physical Examination: Constitutional - She looks pretty good generally, Eyes - Sclerae nonicteric. Conjunctivae clear, ENMT - No lesions noted in the oral cavity, Hematologic/Lymphatic - No cervical, clavicular, or axillary adenopathy, Respiratory - Lungs are clear with good air movement bilaterally, Cardiovascular - Heart rhythm is irregular. There is no murmur, gallop, or rub noted, Abdomen - Soft. Liver and spleen are not enlarged. There is no abdominal mass or ascites noted and there is no inguinal adenopathy, Extremities - Mild edema, Integumentary - There is a lesion on the right thigh with a slightly raised border. The appearance is a little suspicious, Neurologic - No focal neurologic deficits noted. Lab/Imaging: Test performed on Jun 08, 2021 14:18 TSH 0.20 uIU/mL Vitamin B12 399 pg/mL Test performed on Jun 02, 2021 11:45 Sodium 141 mmol/L Vitamin D (25-Hydroxy), Total 78 ng/mL Potassium 4.2 mmol/L Chloride 106 mmol/L CO2 26 mmol/L Anion Gap 13.2 BUN 16 mg/dL Creatinine 0.6 mg/dL Cr Clearance (Est) 100.99 mL/min Glucose 98 mg/dL Osmolality - Calculated 293 mOsm/kg Calcium 9.9 mg/dL Protein, Total 7.1 g/dL Albumin 4.1 g/dL Globulin 3.0 g/dL Bilirubin, Total 0.4 mg/dL ALT (SGPT) 18 U/L AST (SGOT) 18 U/L Alkaline Phosphatase 56 IU/L WBC 8.0 10 3/uL RBC 3.97 10 6/uL HGB 13.6 g/dL HCT 39.0 % MCV 98.2 fl MCH 34.3 pg MCHC 34.9 g/dL RDW 13.1 % Platelet Count 254 10 3/cmm MPV 10.0 fL Neutrophils 5.73 10 3/uL Lymphocytes 1.5 10 3/uL Monocytes 0.7 10 3/uL Eosinophils 0.1 10 3/uL Basophils 0.0 10 3/uL Neutrophil % 71.6 % Lymphocyte % 18.5 % Monocyte % 8.5 % Eosinophil % 1.0 % Basophils % 0.2 % NRBC % 0 % Problem List: 1. History of grade 2 infiltrating ductal carcinoma of the left breast, stage IA (T1c, N0, M0), ER/ME positive and HER-2/alicia negative. Her disease appeared to be low risk by Oncotype DX (recurrence score 10). Her previous treatment included lumpectomy and axillary sentinel lymph node biopsy followed by radiation, completed in July 2009 to a total dose of 6040 cGy. She was given adjuvant hormonal therapy, initially with letrozole and subsequently with exemestane. She has had relatively poor tolerance for aromatase inhibitors, which she continued until July 2012. She was then on tamoxifen briefly. She restarted treatment with exemestane as of January 2013. She was able to tolerate it with acceptable toxicity. She stopped exemestane in June 2015 after completing 5 years of endocrine therapy. 2. In November 2018 she was diagnosed with multifocal infiltrating ductal carcinoma of the right breast, grade 2, stage IA (T1c, pN1a, M0), ER/ME positive and HER-2/alicia negative. Oncotype DX recurrence score was 22, corresponding to an 18% risk of distant recurrence at 9 years with adjuvant hormonal therapy. The absolute benefit with adjuvant chemotherapy was estimated at approximately 1%. She underwent bilateral simple mastectomy with right axillary sentinel lymph node biopsy on 11/30/2018. 3. She has additional history of lower extremity deep vein thrombosis which developed within 3 months of starting treatment with tamoxifen in 2012. 4. Atrial fibrillation. 5. Osteoporosis. 6. She has a history of colonic polyps. Problems Addressed with this Encounter and Plan: 1. Patient with multifocal infiltrating ductal carcinoma of the right breast, grade 2, stage IA (T1c, pN1a, M0), ER/ME positive and HER-2/alicia negative. Oncotype DX recurrence score was 22, corresponding to an 18% risk of distant recurrence at 9 years with adjuvant hormonal therapy. The absolute benefit with adjuvant chemotherapy was estimated at approximately 1%. She underwent bilateral simple mastectomy with right axillary sentinel lymph node biopsy on 11/30/2018. In December 2018 she began adjuvant hormonal therapy with exemestane. During followup she complained of fatigue and musculoskeletal pain, though she felt the side effects were tolerable. As of her visit on 04/14/2020 she continued the exemestane at 25 mg daily. As of her follow-up visit in October 2020 the exemestane was put on hold due to increased joint pain. At her 1-month interval follow-up visit, her pain had not improved significantly, and she did opt to restart the exemestane at 25 mg daily. During follow-up she has had ongoing complaints with musculoskeletal pain and fatigue, at least some of which is likely attributable to the exemestane. However, it has been tolerable. Overall, she appears to be doing well clinically. Thus far there has been no evidence of recurrence of the breast cancer. She continues adjuvant hormonal therapy with exemestane 25 mg daily. I will see her again in 6 months. 2. In April 2019 she began treatment with Prolia for the osteoporosis. She had initially tolerated it well. She recently has been having some jaw pain on the left side. As a precaution, I am going to delay further treatment with the Prolia. Signed By: Demetris Bedolla M.D. <<Signature on File>>
== END 2021-06-08 06:52 | disposition home or self-care (01) ==
LOC: ONCMED 06:53
PROVIDERS: PCP Nurse Practitioner Family; Visit Provider Internal Medicine Medical Oncology
DX: C50.812 Malignant neoplasm of overlapping sites of left female breast (principal); Z17.0 Estrogen receptor positive status [ER+]; Z90.12 Acquired absence of left breast and nipple; I48.20 Chronic atrial fibrillation, unspecified; Z79.01 Long term (current) use of anticoagulants; M81.0 Age-related osteoporosis without current pathological fracture; Z79.899 Other long term (current) drug therapy; Z86.010 Personal history of colon polyps; Z79.811 Long term (current) use of aromatase inhibitors; Z92.21 Personal history of antineoplastic chemotherapy
CPT/HCPCS: 36415; 82607; 84443; 99214

== ENCOUNTER → 2021-09-18 08:13 | Outpatient (BNVA) | payer MEDICARE, OTHER, SELFPAY | PROVIDERS: PCP Nurse Practitioner Family; Visit Provider Internal Medicine | DX: Z79.01 Long term (current) use of anticoagulants (principal) ==

== ENCOUNTER → 2021-09-23 14:35 | Outpatient (BNVA) | payer MEDICARE, OTHER, SELFPAY | PROVIDERS: PCP Nurse Practitioner Family; Visit Provider Internal Medicine | DX: Z79.01 Long term (current) use of anticoagulants (principal) ==

== ENCOUNTER → 2021-09-29 15:15 | Outpatient (BNVA) | payer MEDICARE, OTHER, SELFPAY | PROVIDERS: PCP Nurse Practitioner Family; Visit Provider Internal Medicine | DX: I48.91 Unspecified atrial fibrillation (principal); Z79.01 Long term (current) use of anticoagulants | CPT/HCPCS: 85610 ==

== ENCOUNTER → 2021-10-07 12:51 | Outpatient (BNVA) | payer MEDICARE, OTHER, SELFPAY | PROVIDERS: PCP Nurse Practitioner Family; Visit Provider Internal Medicine | DX: I48.91 Unspecified atrial fibrillation (principal); Z79.01 Long term (current) use of anticoagulants ==

== ENCOUNTER → 2021-10-16 08:47 | Outpatient (BNVA) | payer MEDICARE, OTHER, SELFPAY | PROVIDERS: PCP Nurse Practitioner Family; Visit Provider Internal Medicine | DX: Z79.01 Long term (current) use of anticoagulants (principal) ==

== ENCOUNTER → 2021-10-27 16:31 | Outpatient (BNVA) | payer MEDICARE, OTHER, SELFPAY | PROVIDERS: PCP Nurse Practitioner Family; Visit Provider Internal Medicine | DX: Z79.01 Long term (current) use of anticoagulants (principal) ==

== ENCOUNTER → 2021-11-04 10:01 | Outpatient (BNVA) | payer MEDICARE, OTHER, SELFPAY | PROVIDERS: PCP Nurse Practitioner Family; Visit Provider Internal Medicine | DX: Z79.01 Long term (current) use of anticoagulants (principal) ==

== ENCOUNTER → 2021-11-13 08:42 | Outpatient (BNVA) | payer MEDICARE, OTHER, SELFPAY | PROVIDERS: PCP Nurse Practitioner Family; Visit Provider Internal Medicine | DX: Z79.01 Long term (current) use of anticoagulants (principal) ==

== ENCOUNTER → 2021-11-19 12:19 | Outpatient (BNVA) | payer MEDICARE, OTHER, SELFPAY | PROVIDERS: PCP Nurse Practitioner Family; Visit Provider Internal Medicine | DX: Z79.01 Long term (current) use of anticoagulants (principal) ==

== ENCOUNTER → 2021-11-26 12:58 | Outpatient (BNVA) | payer MEDICARE, OTHER, SELFPAY | PROVIDERS: PCP Nurse Practitioner Family; Visit Provider Internal Medicine | DX: I48.91 Unspecified atrial fibrillation (principal); Z79.01 Long term (current) use of anticoagulants | CPT/HCPCS: 99213; 99214 ==

== ENCOUNTER → 2021-11-27 09:18 | Outpatient (BNVA) | payer MEDICARE, SELFPAY | PROVIDERS: PCP Nurse Practitioner Family; Visit Provider Internal Medicine | DX: Z79.01 Long term (current) use of anticoagulants (principal) ==

== ENCOUNTER → 2021-12-03 10:10 | Outpatient (BNVA) | payer MEDICARE, SELFPAY | PROVIDERS: PCP Nurse Practitioner Family; Visit Provider Internal Medicine | DX: Z79.01 Long term (current) use of anticoagulants (principal) ==

== ENCOUNTER → 2021-12-11 10:32 | Outpatient (BNVA) | payer MEDICARE, SELFPAY | PROVIDERS: PCP Nurse Practitioner Family; Visit Provider Internal Medicine | DX: Z79.01 Long term (current) use of anticoagulants (principal) ==

== ENCOUNTER → 2021-12-16 10:09 | Outpatient (BNVA) | payer MEDICARE, SELFPAY | PROVIDERS: PCP Nurse Practitioner Family; Visit Provider Internal Medicine | DX: Z79.01 Long term (current) use of anticoagulants (principal) ==

== ENCOUNTER 2021-12-21 10:54 | Oncology outpatient (recurring) (ONCR) | payer MEDICARE, OTHER, SELFPAY ==
[2021-12-21 11:40] LABS: Basophils # 0.1 10^3/uL (0.0-0.1); Basophils % 0.7 %; Eosinophils # 0.1 10^3/uL (0.0-0.8); Eosinophils % 0.9 %; Hematocrit 38.8 % (37.0-47.0); Hemoglobin 13.4 g/dL (11.5-15.3); Lymphocytes # 1.7 10^3/uL (0.8-4.8); Lymphocytes % 25.6 %; Mean Corpuscular HGB Conc 34.5 g/dL (30.0-36.0); Mean Corpuscular Hemoglobin 33.4 pg (28.0-34.0); Mean Corpuscular Volume 96.8 fl (81-99); Mean Platelet Volume 10.2 fL (7.4-10.4); Monocytes # 0.6 10^3/uL (0.2-0.9); Monocytes % 9.4 %; Neutrophils # 4.29 10^3/uL (1.8-7.7); Neutrophils % 63.3 %; Nucleated Red Blood Cells % 0 %; Platelet Count 247 10^3/cmm (130-400); Red Blood Count 4.01 10^6/uL (4.1-5.3); Red Cell Distribution Width 13.6 % (12.1-15.1); White Blood Count 6.8 10^3/uL (4.0-10.0)
[2021-12-21 11:47] LABS: Alanine Aminotransferase 27 U/L (0-33); Albumin Level 4.3 g/dL (3.5-5.2); Alkaline Phosphatase 69 IU/L (35-105); Anion Gap 14.8 (5-19); Aspartate Amino Transferase 24 U/L (0-32); Blood Urea Nitrogen 11 mg/dL (8-23); Calcium 10.8 mg/dL (8.5-10.5); Carbon Dioxide 24 mmol/L (22-29); Chloride 103 mmol/L (98-107); Globulin 2.8 g/dL (1.3-4.6); Glucose 91 mg/dL (65-115); Osmolality Calculated 285 mOsm/kg (285-295); Potassium 3.8 mmol/L (3.5-5.1); Sodium 138 mmol/L (136-145); Total Bilirubin 0.6 mg/dL (0.15-1.2); Total Protein 7.1 g/dL (6.6-8.7)
[2021-12-21 16:02] LABS: Thyroid Stimulating Hormone 0.46 uIU/mL (0.27-4.20)
== END 2022-01-07 23:59 | disposition home or self-care (01) ==
PROVIDERS: PCP Nurse Practitioner Family; Visit Provider Internal Medicine Medical Oncology
DX: C50.811 Malignant neoplasm of overlapping sites of right female breast (principal); C50.412 Malignant neoplasm of upper-outer quadrant of left female breast; Z17.0 Estrogen receptor positive status [ER+]; Z90.13 Acquired absence of bilateral breasts and nipples; R53.83 Other fatigue; L65.8 Other specified nonscarring hair loss; T45.1X5A Adverse effect of antineoplastic and immunosuppressive drugs, initial encounter; Z79.818 Long term (current) use of other agents affecting estrogen receptors and estrogen levels; M81.0 Age-related osteoporosis without current pathological fracture; Z79.899 Other long term (current) drug therapy
CPT/HCPCS: 36415; 80053; 84439; 84443; 85025; 99214

== ENCOUNTER → 2021-12-24 08:19 | Outpatient (BNVA) | payer MEDICARE, SELFPAY | PROVIDERS: PCP Nurse Practitioner Family; Visit Provider Internal Medicine | DX: Z79.01 Long term (current) use of anticoagulants (principal) ==

== ENCOUNTER → 2021-12-31 17:16 | Outpatient (BNVA) | payer MEDICARE, SELFPAY | PROVIDERS: PCP Nurse Practitioner Family; Visit Provider Internal Medicine | DX: Z79.01 Long term (current) use of anticoagulants (principal) ==

== ENCOUNTER → 2022-01-07 12:36 | Outpatient (BNVA) | payer MEDICARE, SELFPAY | PROVIDERS: PCP Nurse Practitioner Family; Visit Provider Internal Medicine | DX: Z79.01 Long term (current) use of anticoagulants (principal) ==

== ENCOUNTER → 2022-01-15 11:08 | Outpatient (BNVA) | payer MEDICARE, SELFPAY | PROVIDERS: PCP Nurse Practitioner Family; Visit Provider Internal Medicine | DX: Z79.01 Long term (current) use of anticoagulants (principal) ==

== ENCOUNTER → 2022-01-22 09:13 | Outpatient (BNVA) | payer MEDICARE, SELFPAY | PROVIDERS: PCP Nurse Practitioner Family; Visit Provider Internal Medicine | DX: Z79.01 Long term (current) use of anticoagulants (principal) ==

== ENCOUNTER → 2022-01-28 14:15 | Outpatient (BNVA) | payer MEDICARE, SELFPAY | PROVIDERS: PCP Nurse Practitioner Family; Visit Provider Internal Medicine | DX: Z79.01 Long term (current) use of anticoagulants (principal) ==

== ENCOUNTER 2022-06-09 06:00 | Outpatient (RCR) | payer MEDICARE, OTHER, SELFPAY | END 2022-06-09 23:55 | disposition home or self-care (01) | LOC: SPT 06:00 | PROVIDERS: PCP Nurse Practitioner Family; Visit Provider Orthopaedic Surgery | DX: Z47.1 Aftercare following joint replacement surgery (principal); Z96.651 Presence of right artificial knee joint | CPT/HCPCS: 97161 ==

== ENCOUNTER 2022-06-10 06:00 | Outpatient (RCR) | payer MEDICARE, OTHER, SELFPAY | END 2022-07-10 23:59 | disposition home or self-care (01) | LOC: SPT 06:00 | PROVIDERS: PCP Nurse Practitioner Family; Visit Provider Orthopaedic Surgery | DX: Z47.1 Aftercare following joint replacement surgery (principal); Z96.651 Presence of right artificial knee joint | CPT/HCPCS: 97110 ==

== ENCOUNTER 2022-07-14 11:55 | Oncology outpatient (recurring) (ONCR) | payer MEDICARE, OTHER, SELFPAY ==
[2022-07-14 12:29] LABS: Basophils % 0.5 %; Eosinophils # 0.3 10^3/uL (0.0-0.8); Eosinophils % 4.2 %; Hematocrit 39.7 % (37.0-47.0); Lymphocytes # 1.6 10^3/uL (0.8-4.8); Mean Corpuscular HGB Conc 32.7 g/dL (30.0-36.0); Mean Corpuscular Hemoglobin 33.4 pg (28.0-34.0); Mean Corpuscular Volume 102.1 fl (81-99); Mean Platelet Volume 9.8 fL (7.4-10.4); Monocytes # 0.7 10^3/uL (0.2-0.9); Neutrophils # 3.51 10^3/uL (1.8-7.7); Nucleated Red Blood Cells % 0 %; Platelet Count 289 10^3/cmm (130-400); Red Blood Count 3.89 10^6/uL (4.1-5.3); Red Cell Distribution Width 13.4 % (12.1-15.1); White Blood Count 6.2 10^3/uL (4.0-10.0)
[2022-07-14 14:12] LABS: Alanine Aminotransferase 15 U/L (0-33); Albumin Level 3.9 g/dL (3.5-5.2); Alkaline Phosphatase 79 U/L (35-105); Aspartate Amino Transferase 20 U/L (0-32); Blood Urea Nitrogen 11 mg/dL (8-23); Calcium 10.9 mg/dL (8.5-10.5); Carbon Dioxide 26 mmol/L (22-29); Chloride 104 mmol/L (98-107); Globulin 3.5 g/dL (1.3-4.6); Glucose 84 mg/dL (65-115); Osmolality Calculated 283 mOsm/kg (285-295); Sodium 137 mmol/L (136-145); Total Bilirubin 0.4 mg/dL (0.15-1.2); Total Protein 7.4 g/dL (6.6-8.7)
[2022-07-14 14:21] LABS: Erythrocyte Sedimentation Rate 7 mm/hr (0-15)
[2022-07-14 15:06] LABS: 25 Hydroxy Vitamin D 47 ng/mL (30-100)
[2022-07-14 15:20] LABS: Anion Gap 11.4 (5-19); Potassium 4.4 mmol/L (3.5-5.1)
[2022-07-14 15:30] LABS: C Reactive Protein 3.1 mg/L (0.0-4.9)
[2022-07-14 18:14] LABS: Bilirubin Urine Neg (Negative); Blood Urine Neg (Negative); Glucose Urine UA Norm (Normal); Ketones Urine Negative (Negative); Leukocyte Esterase Urine Negative (Negative); Nitrate Urine Negative (Negative); Protein Urine Neg (Negative); Urine Appearance Clear (CLEAR); Urine Color Yellow (Yellow); Urobilinogen Urine Norm (Negative); pH Urine 8 (5-7)
[2022-07-14 18:15] LABS: Squamous Epithelial Cell Urine 0-4 /hpf (0-5)
== END 2022-08-10 23:59 | disposition home or self-care (01) ==
PROVIDERS: PCP Nurse Practitioner Family; Visit Provider Internal Medicine Medical Oncology
DX: C50.811 Malignant neoplasm of overlapping sites of right female breast (principal); Z17.0 Estrogen receptor positive status [ER+]; Z90.13 Acquired absence of bilateral breasts and nipples; M79.604 Pain in right leg; R53.0 Neoplastic (malignant) related fatigue; L65.8 Other specified nonscarring hair loss; T45.1X5A Adverse effect of antineoplastic and immunosuppressive drugs, initial encounter; M81.0 Age-related osteoporosis without current pathological fracture; Z79.818 Long term (current) use of other agents affecting estrogen receptors and estrogen levels; Z79.899 Other long term (current) drug therapy
CPT/HCPCS: 36415; 80053; 81001; 82306; 85025; 85651; 86140; 99214

== ENCOUNTER 2022-07-20 07:49 | Outpatient (CLI) | payer MEDICARE, OTHER, SELFPAY ==
--- NOTE | 2022-07-20 08:00 | USCV_ITS ---
Sophia Ugarte Age: 71 Gender: F : 1950 Exam Date: 07/20/2022 08:11 Ordering Phys: Demetris Bedolla MD Technologist: [place]am [place] [facility] [place]: Swelling and redness HISTORY: Lower extremity swelling. Lower extremity pain. PROCEDURES: Venous duplex imaging was performed in only the right lower extremity. The following venous structures were evaluated: common femoral vein, profunda vein, proximal portion of the greater saphenous vein, superficial femoral vein, and the popliteal vein. In addition, the posterior tibial and peroneal trunk were evaluated. Serial compression, augmentation maneuvers, and spectral Doppler flow evaluation were performed. FINDINGS: No evidence of DVT seen in any vessel visualized at this time. CONCLUSIONS No evidence of right lower extremity DVT. Benedicto Allen MD (Electronically Signed) Final Date: 20 July 2022 10:26 S
== END 2022-07-20 07:50 | disposition home or self-care (01) ==
LOC: RAD 07:52
PROVIDERS: PCP Nurse Practitioner Family; Visit Provider Internal Medicine Medical Oncology
DX: M79.604 Pain in right leg (principal); M79.89 Other specified soft tissue disorders; L53.9 Erythematous condition, unspecified
CPT/HCPCS: 93971

== ENCOUNTER 2022-11-29 13:15 | Outpatient (CLI) | payer MEDICARE, OTHER, SELFPAY ==
--- NOTE | 2022-11-29 13:00 | XR_ITS ---
WS: [id number] DEXA (DUAL ENERGY X-RAY ABSORPTIOMETRY) Bone mineral density was performed using a XMOS machine. HISTORY: osteoporosis COMPARISON: 11/25/2020 Lumbar spine BMD (L1-L4): 0.906 g/cm2 T score: -2.3 Z score: -0.9 Total hip BMD: Left: 0.708 g/cm2. T score: -2.4 Z score: -0.9 Right: 0.736 g/cm2. T score: -2.2 Z score: -0.7 10 year probability of a major osteoporotic fracture is 16.5%. Compared to the prior study from 11/25/2020. Lumbar spine bone mineral density has decreased by 1.1%. Bilateral hips bone mineral density has decrease by 5.7%. XR/XR DEXA axial skeleton* [id number] IMPRESSION: OSTEOPENIA based upon the WHO classification for females. Significant decrease in bone mineral density within the hips since the prior .
== END 2022-11-29 13:16 | disposition home or self-care (01) ==
LOC: RAD 13:20
PROVIDERS: PCP Nurse Practitioner Family; Visit Provider Internal Medicine Medical Oncology
DX: M85.80 Other specified disorders of bone density and structure, unspecified site (principal)
CPT/HCPCS: 77080

== ENCOUNTER → 2022-12-09 10:16 | Outpatient (BNVA) | payer MEDICARE, OTHER, SELFPAY | PROVIDERS: PCP Nurse Practitioner Family; Visit Provider Podiatrist Foot & Ankle Surgery | DX: L60.8 Other nail disorders (principal); L60.0 Ingrowing nail | CPT/HCPCS: 11750; 99203 ==

== ENCOUNTER 2022-12-13 15:19 | Emergency (ER) | payer MEDICARE, OTHER, SELFPAY ==
[2022-12-13 15:27] VITALS: BP 145/93; PULSE 93; RESP 12; TEMP 36.3; O2SAT 97; BMI 25.3
[2022-12-13 18:26] VITALS: BP 155/95; PULSE 75; RESP 16; O2SAT 97
--- NOTE | 2022-12-13 18:28 | CTR_ITS ---
PROCEDURE INFORMATION: Exam: CT Chest Without Contrast; Diagnostic Exam date and time: 12/13/2022 7:10 PM Age: 72 years old Clinical indication: Injury or trauma; Fall; Upper; Blunt trauma (contusions or hematomas); Prior surgery; Surgery date: 6+ months; Surgery type: Bilat masectomy, appy, brian, hyst; Additional info: Trauma, right chest and right lower abd pain TECHNIQUE: Imaging protocol: Diagnostic computed tomography of the chest without contrast. Radiation optimization: All CT scans at this facility use at least one of these dose optimization techniques: automated exposure control; mA and/or kV adjustment per patient size (includes targeted exams where dose is matched to clinical indication); or iterative reconstruction. REPORTING DATA: Count of CT and Cardiac NM exams in prior 12 months: This patient has received 0 known CTs and 0 known cardiac nuclear medicine studies in the 12 months prior to the current study. COMPARISON: CT cervical spin wo con* [id number] 12/13/2022 7:04 PM RADIATION DOSE METRICS: Total DLP (mGy-cm): 715 FINDINGS: Lungs: Emphysematous changes. Bilateral dependent atelectasis. Pleural spaces: Unremarkable. No pneumothorax. No pleural effusion. Heart: Unremarkable. No cardiomegaly. No pericardial effusion. Coronary arteries: Coronary artery atherosclerotic calcifications. Lymph nodes: Unremarkable. No enlarged lymph nodes. Vasculature: Ascending thoracic aorta dilated to 4.2 cm. Bones/joints: Unremarkable. No acute fracture. Soft tissues: Unremarkable. COMMENTS: In the absence of a history or active diagnosis of lung cancer, it is recommended that this patient with emphysema be evaluated for enrollment in a low dose CT lung cancer screening program. PROCEDURE INFORMATION: Exam: CT Abdomen And Pelvis Without Contrast Exam date and time: 12/13/2022 7:10 PM Age: 72 years old Clinical indication: Injury or trauma; Fall; Upper; Blunt trauma (contusions or hematomas); Prior surgery; Surgery date: 6+ months; Surgery type: Bilat masectomy, appy, brian, hyst; Additional info: Trauma, right chest and right lower abd pain TECHNIQUE: Imaging protocol: Computed tomography of the abdomen and pelvis without contrast. Radiation optimization: All CT scans at this facility use at least one of these dose optimization techniques: automated exposure control; mA and/or kV adjustment per patient size (includes targeted exams where dose is matched to clinical indication); or iterative reconstruction. REPORTING DATA: Count of CT and Cardiac NM exams in prior 12 months: This patient has received 0 known CTs and 0 known cardiac nuclear medicine studies in the 12 months prior to the current study. COMPARISON: CT abdomen pelvis w con* [id number] 02/19/2021 3:06 PM RADIATION DOSE METRICS: Total DLP (mGy-cm): 715 FINDINGS: Liver: Normal. No mass. Gallbladder and bile ducts: Cholecystectomy. Pancreas: Normal. No ductal dilation. Spleen: Normal. No splenomegaly. Adrenal glands: Normal. No mass. Kidneys and ureters: Normal. No hydronephrosis. Stomach and bowel: Diverticulosis without diverticulitis. Small hiatal hernia. Appendix: No evidence of appendicitis. Intraperitoneal space: Unremarkable. No free air. No significant fluid collection. Vasculature: Unremarkable. No abdominal aortic aneurysm. Lymph nodes: Unremarkable. No enlarged lymph nodes. Urinary bladder: Unremarkable as visualized. Reproductive: Unremarkable as visualized. Bones/joints: Unremarkable. No acute fracture. Soft tissues: Small right inguinal hernia containing a portion of bowel without dilation or inflammation. CT/[place] [id number] IMPRESSION: 1. Negative traumatic injury to chest. 2. Ascending thoracic aorta dilated to 4.2 cm. 3. Coronary artery atherosclerotic calcifications. 4. Emphysematous changes. 5. Bilateral dependent atelectasis. IMPRESSION: 1. Negative for traumatic injury to the abdomen or pelvis. 2. Cholecystectomy. 3. Diverticulosis without diverticulitis. 4. Small right inguinal hernia containing a portion of bowel without dilation or inflammation. 5. Small hiatal hernia.
--- NOTE | 2022-12-13 18:28 | CTR_ITS ---
PROCEDURE INFORMATION: Exam: CT Cervical Spine Without Contrast Exam date and time: 12/13/2022 7:04 PM Age: 72 years old Clinical indication: Injury or trauma; Fall; Blunt trauma; Additional info: Fall, elderly trauma TECHNIQUE: Imaging protocol: Computed tomography of the cervical spine without contrast. Radiation optimization: All CT scans at this facility use at least one of these dose optimization techniques: automated exposure control; mA and/or kV adjustment per patient size (includes targeted exams where dose is matched to clinical indication); or iterative reconstruction. REPORTING DATA: Count of CT and Cardiac NM exams in prior 12 months: This patient has received 0 known CTs and 0 known cardiac nuclear medicine studies in the 12 months prior to the current study. COMPARISON: US ROR carotid duplex BI 05/23/2017 2:04 PM RADIATION DOSE METRICS: Total DLP (mGy-cm): 175 FINDINGS: Bones/joints: Lower cervical spine disc space narrowing and productive degenerative endplate changes. C2-C3: No significant disc bulge or herniation. No severe spinal canal stenosis. No significant neural foraminal narrowing. C3-C4: No significant disc bulge or herniation. No severe spinal canal stenosis. No significant neural foraminal narrowing. C4-C5: No significant disc bulge or herniation. No severe spinal canal stenosis. No significant neural foraminal narrowing. C5-C6: No significant disc bulge or herniation. No severe spinal canal stenosis. No significant neural foraminal narrowing. C6-C7: No significant disc bulge or herniation. No severe spinal canal stenosis. No significant neural foraminal narrowing. C7-T1: No significant disc bulge or herniation. No severe spinal canal stenosis. No significant neural foraminal narrowing. Lungs: Lung apices are normal. Soft tissues: Unremarkable. CT/CT cervical spin wo con* [id number] IMPRESSION: Negative for fracture or dislocation.
--- NOTE | 2022-12-13 18:28 | CTR_ITS ---
PROCEDURE INFORMATION: Exam: CT Head Without Contrast Exam date and time: 12/13/2022 7:04 PM Age: 72 years old Clinical indication: Injury or trauma; Fall; Blunt trauma (contusions or hematomas); Additional info: Fall, elderly traum TECHNIQUE: Imaging protocol: Computed tomography of the head without contrast. Radiation optimization: All CT scans at this facility use at least one of these dose optimization techniques: automated exposure control; mA and/or kV adjustment per patient size (includes targeted exams where dose is matched to clinical indication); or iterative reconstruction. REPORTING DATA: Count of CT and Cardiac NM exams in prior 12 months: This patient has received 0 known CTs and 0 known cardiac nuclear medicine studies in the 12 months prior to the current study. COMPARISON: MR head wo/w con [id number] 06/08/2017 8:58 AM RADIATION DOSE METRICS: Total DLP (mGy-cm): 1126 FINDINGS: Brain: Mild diffuse white matter disease likely reflecting chronic microvascular ischemic changes. Cerebral ventricles: No ventriculomegaly. Paranasal sinuses: Visualized sinuses are unremarkable. No fluid levels. Mastoid air cells: Visualized mastoid air cells are well aerated. Bones/joints: Unremarkable. No acute fracture. Soft tissues: Unremarkable. CT/CT head wo con* [id number] IMPRESSION: Negative for intracranial hemorrhage or mass effect.
--- NOTE | 2022-12-13 18:28 | XRR_ITS ---
PROCEDURE INFORMATION: Exam: XR Right Knee Exam date and time: 12/13/2022 6:41 PM Age: 72 years old Clinical indication: Injury or trauma; Fall; Blunt trauma; Right; Prior surgery; Surgery date: 6+ months; Surgery type: RT knee; Additional info: Fall injury TECHNIQUE: Imaging protocol: Radiologic exam of the right knee. Views: 3 views. COMPARISON: No relevant prior studies available. FINDINGS: Bones/joints: Knee arthroplasty changes in place. Soft tissues: Normal. XR/XR knee RT 3V* [id number] IMPRESSION: Knee arthroplasty changes in place.
--- NOTE | 2022-12-13 18:30 | W.ED.FALL ---
HPI - Fall General: Chief Complaint: Fall Stated Complaint: fall, pain on right side Time Seen by Provider: 12/13/22 18:22 History of Present Illness: 72-year-old female comes in today with injury secondary to fall descending stairs. Patient reports that she has to descend 2-3 steps going down into a foyer and tripped and fell landing on her right side. Patient denies any loss of consciousness. Patient was able to get up from the floor. Patient reports pain in the right anterior ribs and right anterior knee. Patient is able to transfer from wheelchair to bed without difficulty. Patient appears in moderate pain. Patient does take anticoagulant, warfarin, routinely. Patient has a history of A-fib, osteoporosis, history of breast cancer, and GERD. Associated symptoms-after fall: Reports abdominal pain (Right lower abdominal pain and swelling); Denies chest pain (Right chest wall tenderness), headache(s) or neck pain Review of Systems Const: Denies: fever(s) Card: Denies: chest pain (Right chest wall tenderness) Resp: Denies: dyspnea GI: Reports: abdominal pain (Right lower abdominal pain and swelling) Musc: Reports: extremity pain (Right anterior knee pain); Denies: neck pain or back pain Skin/Breast: Denies: rash Neuro: Denies: headache(s) PFS ED PFSH: Medical History Anticoagulant long-term use Atrial fibrillation DVT (deep venous thrombosis) GERD (gastroesophageal reflux disease) History of malignant melanoma History of nonmelanoma skin cancer Malignant neoplasm of upper-outer quadrant of left female breast Osteoporosis Surgical History H/O bilateral mastectomy (2018) H/O rectocele repair History of hysterectomy with bilateral oophorectomy History of knee joint replacement Left total knee 05/18/2022 S/P appendectomy S/P arthroscopic surgery of right knee S/P cataract extraction S/P cholecystectomy S/P lumpectomy of breast (2008) Left breast lumpectomy with axillary lymph node sampling S/P removal of ovarian cyst S/P tonsillectomy Family History Father Cancer Mother Cancer Social History Smoking and tobacco status: never smoked Household members: spouse Marital status: Physical Exam Const: COMMON NORMALS: patient oriented x3 and alert HENMT: COMMON NORMALS: normocephalic and atraumatic HEAD & SCALP: normocephalic and atraumatic MOUTH: Normal oral and palatal mucosa present Neck/C-Spine: COMMON NORMALS: full ROM Resp: COMMON NORMALS: normal respiratory effort and clear to auscultation bilaterally AUSCULTATION: clear to auscultation bilaterally Cardio: COMMON NORMALS: regular rate and regular rhythm RATE: regular rate RHYTHM: regular rhythm GI: INSPECTION: Yes other (Tender linear nodule right lower abdomen) Extremity: RIGHT LOWER EXTREMITY: Yes knee joint (Tenderness anterior knee) Neuro: COMMON NORMALS: patient oriented x3 SENSORIUM/ORIENTATION: Yes alert Skin: COMMON NORMALS: turgor normal GENERAL SKIN EXAM: turgor normal Course Vital Signs: Vital signs: Vital Signs Temperature 97.4 F L 12/13/22 15:27 Pulse Rate 75 12/13/22 18:26 Respiratory Rate 16 12/13/22 18:26 Blood Pressure 155/95 12/13/22 18:26 Pulse Oximetry 97 12/13/22 18:26 Oxygen Delivery Me thod Room Air 12/13/22 18:26 MDM - Fall Medical Decision Making 72-year-old female comes in today with injuries @4pm during a fall down the steps at home. On exam patient has some right anterior rib tenderness without any crepitus noted. Respirations are even. Abdomen soft with some right lower quadrant abdomi nal tenderness along the nodule. Tenderness to the right anterior knee. Differential diagnosis includes rib fracture, abdominal organ injury, muscle strain, hernia, intracranial bleeding. Laboratory values were unremarkable. CT of the head, neck, chest, abdomen and pelvis noted no acute fractures but did note a inguinal hernia in the right lower quadrant without signs of obstruction to the bowels. Reviewed exam with patient recommended treatment for pain with ice and heat and medications as needed. We will place a appointment with general surgery per case management due to inguinal hernia. Patient appears nontoxic and stable to go home. Patient reported understanding of care plan and need for follow-up or return. Lab Data 12/13/22 18:27 12/13/22 18:27 Radiology Impressions Cervical Spine CT 12/13/22 18:28 IMPRESSION: Negative for fracture or dislocation. Chest/Abdomen/Pelvis CT 12/13/22 18:28 IMPRESSION: 1. Negative traumatic injury to chest. 2. Ascending thoracic aorta dilated to 4.2 cm. 3. Coronary artery atherosclerotic calcifications. 4. Emphysematous changes. 5. Bilateral dependent atelectasis. IMPRESSION: 1. Negative for traumatic injury to the abdomen or pelvis. 2. Cholecystectomy. 3. Diverticulosis without diverticulitis. 4. Small right inguinal hernia containing a portion of bowel without dilation or inflammation. 5. Small hiatal hernia. Head CT 12/13/22 18:28 IMPRESSION: Negative for intracranial hemorrhage or mass effect. Knee X-Ray 12/13/22 18: IMPRESSION: Knee arthroplasty changes in place. Laboratory Results WBC 8.8 10^3/uL (4.0-10.0) 12/13/22 18: RBC 4.31 10^6/uL (4.1-5.3) 12/13/22 18: Hgb 14.8 g/dL (11.5-15.3) 12/13/22 18: Hct 44.3 % (37.0-47.0) 12/13/22 18: MCV 102.8 fl (81-99) H 12/13/22 18: MCH 34.3 pg (28.0-34.0) H 12/13/22 18: MCHC 33.4 g/dL (30.0-36.0) 12/13/22 18: RDW 14.0 % (12.1-15.1) 12/13/22 18: Plt Count 276 10^3/cmm (130-400) 12/13/22 18: MPV 9.8 fL (7.4-10.4) 12/13/22 18: Neut % (Auto) 73.3 % 12/13/22 18: Lymph % (Auto) 18.2 % 12/13/22 18: Ogle % (Auto) 7.2 % 12/13/22 18: Eos % (Auto) 0.7 % 12/13/22 18: Baso % (Auto) 0.3 % 12/13/22 18: Neut # (Auto) 6.45 10^3/uL (1.8-7.7) 12/13/22 18:27 Lymph # (Auto) 1.6 10^3/uL (0.8-4.8) 12/13/22 18:27 Ogle # (Auto) 0.6 10^3/uL (0.2-0.9) 12/13/22 18:27 Eos # (Auto) 0.1 10^3/uL (0.0-0.8) 12/13/22 18: Baso # (Auto) 0.0 10^3/uL (0.0-0.1) 12/13/22 18:27 Nucleated RBC % (auto) 0 % 12/13/22 18: Nucleated RBCs # 0.0 /100WBC 12/13/22 18: PT 23.50 SECONDS (12.1-14.9) H 12/13/22 18: INR 2.02 (0.8-1.2) H 12/13/22 18:27 Sodium 143 mmol/L (136-145) 12/13/22 18: Potassium 3.9 mmol/L (3.5-5.1) 12/13/22 18: Chloride 107 mmol/L (98-107) 12/13/22 18: Carbon Dioxide 24 mmol/L (22-29) 12/13/22 18:27 Anion Gap 15.9 (5-19) 12/13/22 18:27 BUN 18 mg/dL (8-23) 12/13/22 18:27 Creatinine 0.5 mg/dL (0.5-0.9) 12/13/22 18:27 GFR Calculation Not Reportable 12/13/22 18:27 Glucose 80 mg/dL (65-115) 12/13/22 18:27 Calculated Osmolality 297 mOsm/kg (285-295) H 12/13/22 18:27 Calcium 10.0 mg/dL (8.5-10.5) 12/13/22 18: Total Bilirubin 0.7 mg/dL (0.15-1.2) 12/13/22 18:27 AST 30 U/L (0-32) 12/13/22 18:27 ALT 28 U/L (0-33) 12/13/22 18:27 Alkaline Phosphatase 73 U/L (35-105) 12/13/22 18: Total Protein 7.8 g/dL (6.6-8.7) 12/13/22 18:27 Albumin 4.6 g/dL (3.5-5.2) 12/13/22 18:27 Globulin 3.2 g/dL (1.3-4.6) 12/13/22 18:27 Discharge Plan Discharge Patient Disposition: Home Clinical Impression: Fall Qualifiers: Encounter type: initial encounter Qualified Code(s): W19.XXXA - Unspecified fall, initial encounter Contusion of rib on right side Qualifiers: Encounter type: initial encounter Qualified Code(s): S20.211A - Contusion of right front wall of thorax, initial encounter Abdominal hernia Qualifiers: Hernia type: inguinal Obstruction and gangrene presence: without obstruction or gangrene Laterality: unilateral Recurrence: not specified as recurrent Qualified Code(s): K40.90 - Unilateral inguinal hernia, without obstruction or gangrene, not specified as recurrent Condition: Stable Prescriptions: No Action cholecalciferol (vitamin D3) 25 mcg (1,000 unit) capsule 25 mcg PO DAILY Centrum Silver Women 8 mg iron-400 mcg-300 mcg tablet 1 tab PO DAILY docusate sodium [Stool Softener] 100 mg capsule 100 mg PO DAILY mupirocin 2 % ointment 1 applic topical BID Qty: 22 0RF metoprolol succinate 50 mg tablet extended release 24 hr 50 mg PO DAILY Qty: 90 3RF exemestane 25 mg tablet See Rx Instructions .ROUTE .COMPLEX Qty: 90 0RF Dose Instruction: TAKE 1 TABLET BY MOUTH DAILY AFTER A MEAL Rx Instructions: TAKE 1 TABLET BY MOUTH DAILY AFTER A MEAL warfarin 5 mg tablet 5 mg PO .per protocol Qty: 240 2RF Protocol: Dose Management Condition: Tuesday Dose/Route: 5 mg Instruction: 1 x 5 mg tablet Condition: Tuesday Dose/Route: 5 mg Instruction: 1 x 5 mg tablet Condition: Tuesday Dose/Route: 5 mg Instruction: 1 x 5 mg tablet Condition: Tuesday Dose/Route: 7.5 mg Instruction: 1.5 x 5 mg tablets Condition: Dose/Route: 5 mg Instruction: 1 x 5 mg tablet Condition: Tuesday Dose/Route: 5 mg Instruction: 1 x 5 mg tablet Condition: Tuesday Dose/Route: 5 mg Instruction: 1 x 5 mg tablet Protocol Text: Adjustment Start Date: Tuesday12/10/22 INR Value: 2.8 INR Date: 12/08/22 Recheck Date: 12/17/22 pantoprazole 40 mg tablet,delayed release (/EC) See Rx Instructions .ROUTE .COMPLEX Qty: 90 1RF Dose Instruction: TAKE 1 TABLET BY MOUTH EVERY DAY Rx Instructions: TAKE 1 TABLET BY MOUTH EVERY DAY amoxicillin 500 mg capsule 2,000 mg PO ONCE Qty: 4 0RF Rx Instructions: Take 30 minutes before procedure with Dr. Platt cephalexin 500 mg capsule 500 mg PO BID 7 Days Qty: 14 0RF Rx Instructions: Start taking medication the evening of the procedure. alendronate [Fosamax] 70 mg tablet 70 mg PO .weekly Qty: 12 0RF Discharge Orders: Discharge ED (Routine); Ordered 12/13/22 Ordered By: Juan Pablo Tang Referrals: Rita Coles FNP [Primary Care Provider] - Discharge Diet: Usual diet Discharge Activity: Increase activity as tolerated Patient Instructions: Musculoskeletal Pain (ED) Activity Restrictions/Additional Instructions: Home and rest. Activity as tolerated. Use acetaminophen ibuprofen to control pain. Use hydrocodone for severe pain. Follow-up with primary care as needed. information support project manager will contact you regarding follow-up with surgeon regarding inguinal hernia. Coding Level of Care Code ED Design And Sales Consultant for Maribell Nowak
[2022-12-13 18:46] LABS: Basophils % 0.3 %; Eosinophils # 0.1 10^3/uL (0.0-0.8); Eosinophils % 0.7 %; Hematocrit 44.3 % (37.0-47.0); Hemoglobin 14.8 g/dL (11.5-15.3); Lymphocytes # 1.6 10^3/uL (0.8-4.8); Lymphocytes % 18.2 %; Mean Corpuscular HGB Conc 33.4 g/dL (30.0-36.0); Mean Corpuscular Hemoglobin 34.3 pg (28.0-34.0); Mean Corpuscular Volume 102.8 fl (81-99); Mean Platelet Volume 9.8 fL (7.4-10.4); Monocytes # 0.6 10^3/uL (0.2-0.9); Monocytes % 7.2 %; Neutrophils # 6.45 10^3/uL (1.8-7.7); Neutrophils % 73.3 %; Nucleated Red Blood Cells % 0 %; Platelet Count 276 10^3/cmm (130-400); Red Blood Count 4.31 10^6/uL (4.1-5.3); White Blood Count 8.8 10^3/uL (4.0-10.0)
[2022-12-13 19:02] LABS: INR 2.02 (0.8-1.2)
[2022-12-13 19:08] LABS: Alanine Aminotransferase 28 U/L (0-33); Albumin Level 4.6 g/dL (3.5-5.2); Alkaline Phosphatase 73 U/L (35-105); Anion Gap 15.9 (5-19); Aspartate Amino Transferase 30 U/L (0-32); Blood Urea Nitrogen 18 mg/dL (8-23); Carbon Dioxide 24 mmol/L (22-29); Chloride 107 mmol/L (98-107); Globulin 3.2 g/dL (1.3-4.6); Glucose 80 mg/dL (65-115); Osmolality Calculated 297 mOsm/kg (285-295); Potassium 3.9 mmol/L (3.5-5.1); Sodium 143 mmol/L (136-145); Total Bilirubin 0.7 mg/dL (0.15-1.2); Total Protein 7.8 g/dL (6.6-8.7)
[2022-12-13] MEDS: HYDROcodone-acetaminophen 5-325 mg Tablet 1 TAB PO (19:26)
--- NOTE | 2022-12-14 08:07 | DCPLANNER ---
Addendum entered by Dawn Aguayo 12/31/22 15:43: Case manger received the following message from the general surgery clinic regarding follow up appointment: unable to make contact with patient Addendum entered by Dawn Aguayo 12/21/22 10:39: progressive care manager received the following message from the general surgery clinic regarding follow up appointment: left message 12/17 Original Note: progressive care manager had message to schedule a follow up appointment for patient with general surgery. progressive care manager sent patients information to the front office staff at general surgery. Patients information will be printed and reviewed. Clinic will call patient with appointment information.
== END 2022-12-13 20:33 | disposition home or self-care (01) ==
PROVIDERS: Emergency Provider Nurse Practitioner Family; PCP Nurse Practitioner Family
DX: S20.211A Contusion of right front wall of thorax, initial encounter (principal); W01.0XXA Fall on same level from slipping, tripping and stumbling without subsequent striking against object, initial encounter; Y93.01 Activity, walking, marching and hiking; Y92.009 Unspecified place in unspecified non-institutional (private) residence as the place of occurrence of the external cause; K40.90 Unilateral inguinal hernia, without obstruction or gangrene, not specified as recurrent
CPT/HCPCS: 70450; 71250; 72125; 73562; 74176; 80053; 85025; 85610; 99285

== ENCOUNTER → 2023-01-03 10:39 | Outpatient (BNVA) | payer MEDICARE, OTHER, SELFPAY | PROVIDERS: PCP Nurse Practitioner Family; Visit Provider Podiatrist Foot & Ankle Surgery | DX: M79.674 Pain in right toe(s) (principal) | CPT/HCPCS: 99213 ==

== ENCOUNTER → 2023-01-13 10:56 | Outpatient (BNVA) | payer MEDICARE, OTHER, SELFPAY | PROVIDERS: PCP Nurse Practitioner Family; Visit Provider Podiatrist Foot & Ankle Surgery | DX: Z98.890 Other specified postprocedural states (principal); M79.674 Pain in right toe(s) | CPT/HCPCS: 99213 ==

== ENCOUNTER 2023-01-20 12:31 | Oncology outpatient (recurring) (ONCR) | payer MEDICARE, OTHER, SELFPAY ==
[2023-01-20 12:33] VITALS: BP 148/78; PULSE 68; RESP 18; TEMP 36.7; O2SAT 98
[2023-01-20 12:52] LABS: Basophils % 0.5 %; Eosinophils # 0.1 10^3/uL (0.0-0.8); Eosinophils % 1.6 %; Hematocrit 40.8 % (37.0-47.0); Hemoglobin 13.4 g/dL (11.5-15.3); Lymphocytes # 1.8 10^3/uL (0.8-4.8); Lymphocytes % 28.8 %; Mean Corpuscular HGB Conc 32.8 g/dL (30.0-36.0); Mean Corpuscular Hemoglobin 33.5 pg (28.0-34.0); Mean Platelet Volume 9.7 fL (7.4-10.4); Monocytes # 0.7 10^3/uL (0.2-0.9); Monocytes % 10.9 %; Neutrophils # 3.64 10^3/uL (1.8-7.7); Nucleated Red Blood Cells % 0 %; Platelet Count 250 10^3/cmm (130-400); Red Cell Distribution Width 13.6 % (12.1-15.1); White Blood Count 6.3 10^3/uL (4.0-10.0)
[2023-01-20 13:16] LABS: Alanine Aminotransferase 22 U/L (0-33); Albumin Level 4.1 g/dL (3.5-5.2); Alkaline Phosphatase 71 U/L (35-105); Anion Gap 11.3 (5-19); Aspartate Amino Transferase 22 U/L (0-32); Blood Urea Nitrogen 14 mg/dL (8-23); Calcium 9.9 mg/dL (8.5-10.5); Carbon Dioxide 25 mmol/L (22-29); Chloride 108 mmol/L (98-107); Globulin 2.9 g/dL (1.3-4.6); Glucose 87 mg/dL (65-115); Osmolality Calculated 290 mOsm/kg (285-295); Potassium 4.3 mmol/L (3.5-5.1); Sodium 140 mmol/L (136-145); Total Bilirubin 0.5 mg/dL (0.15-1.2)
[2023-01-20 13:31] LABS: 25 Hydroxy Vitamin D 42 ng/mL (30-100)
== END 2023-02-07 23:59 | disposition home or self-care (01) ==
PROVIDERS: PCP Nurse Practitioner Family; Visit Provider Internal Medicine Medical Oncology
DX: C50.811 Malignant neoplasm of overlapping sites of right female breast (principal); M81.0 Age-related osteoporosis without current pathological fracture; Z79.899 Other long term (current) drug therapy
CPT/HCPCS: 36415; 80053; 82306; 85025; 99214

== ENCOUNTER → 2023-01-24 13:43 | Outpatient (BNVA) | payer MEDICARE, OTHER, SELFPAY | PROVIDERS: PCP Nurse Practitioner Family; Visit Provider Podiatrist Foot & Ankle Surgery | DX: L60.0 Ingrowing nail (principal); Z98.890 Other specified postprocedural states | CPT/HCPCS: 99213 ==

== ENCOUNTER → 2023-02-10 15:12 | Outpatient (BNVA) | payer MEDICARE, OTHER, SELFPAY | PROVIDERS: PCP Nurse Practitioner Family; Visit Provider Internal Medicine | DX: I48.91 Unspecified atrial fibrillation (principal); Z79.01 Long term (current) use of anticoagulants | CPT/HCPCS: 99214 ==

== ENCOUNTER 2023-07-21 11:03 | Oncology outpatient (recurring) (ONCR) | payer MEDICARE, OTHER, SELFPAY ==
[2023-07-21 11:30] VITALS: BP 136/81; PULSE 80; RESP 16; TEMP 37.1; O2SAT 98
[2023-07-21 11:32] LABS: Basophils % 0.6 %; Eosinophils # 0.1 10^3/uL (0.0-0.8); Hematocrit 41.6 % (36-47); Lymphocytes # 1.6 10^3/uL (0.8-4.8); Lymphocytes % 25.5 %; Mean Corpuscular HGB Conc 33.4 g/dL (30-55); Mean Corpuscular Volume 101.7 fl (85-98); Mean Platelet Volume 9.3 fL (7.4-10.4); Monocytes # 0.6 10^3/uL (0.2-0.9); Monocytes % 10.3 %; Neutrophils # 3.86 10^3/uL (1.8-7.7); Neutrophils % 62.3 %; Nucleated Red Blood Cells % 0 %; Platelet Count 253 10^3/cmm (157-399); Red Blood Count 4.09 10^6/uL (3.85-5.65); Red Cell Distribution Width 13.2 % (12.1-15.1)
[2023-07-21 11:50] LABS: Alanine Aminotransferase 21 U/L (0-33); Albumin Level 4.1 g/dL (3.5-5.2); Alkaline Phosphatase 54 U/L (35-105); Anion Gap 9.7 (5-19); Aspartate Amino Transferase 25 U/L (0-32); Blood Urea Nitrogen 13 mg/dL (8-23); Calcium 10.8 mg/dL (8.5-10.5); Carbon Dioxide 28 mmol/L (22-29); Chloride 107 mmol/L (98-107); Globulin 3.1 g/dL (1.3-4.6); Glucose 89 mg/dL (65-115); Osmolality Calculated 290 mOsm/kg (285-295); Potassium 4.7 mmol/L (3.5-5.1); Sodium 140 mmol/L (136-145); Total Bilirubin 0.6 mg/dL (0.15-1.2); Total Protein 7.2 g/dL (6.6-8.7)
== END 2023-08-10 23:59 | disposition home or self-care (01) ==
PROVIDERS: Nurse Practitioner Family; PCP Nurse Practitioner Family; Visit Provider Internal Medicine Medical Oncology
DX: C50.811 Malignant neoplasm of overlapping sites of right female breast (principal); Z17.0 Estrogen receptor positive status [ER+]; Z90.13 Acquired absence of bilateral breasts and nipples; M79.604 Pain in right leg; R53.0 Neoplastic (malignant) related fatigue; L65.8 Other specified nonscarring hair loss; T45.1X5A Adverse effect of antineoplastic and immunosuppressive drugs, initial encounter; M81.0 Age-related osteoporosis without current pathological fracture; Z79.818 Long term (current) use of other agents affecting estrogen receptors and estrogen levels; Z79.899 Other long term (current) drug therapy; Z53.9 Procedure and treatment not carried out, unspecified reason
CPT/HCPCS: 36415; 80053; 85025; 99213

== ENCOUNTER → 2023-08-17 07:59 | Outpatient (BNVA) | payer MEDICARE, OTHER, SELFPAY | PROVIDERS: PCP Nurse Practitioner Family; Visit Provider Podiatrist Foot & Ankle Surgery | DX: M25.572 Pain in left ankle and joints of left foot (principal); M76.822 Posterior tibial tendinitis, left leg; Z46.89 Encounter for fitting and adjustment of other specified devices | CPT/HCPCS: 73610; 99213; L1902 ==

== ENCOUNTER 2023-08-17 09:55 | Outpatient (CLI) | payer MEDICARE, OTHER, SELFPAY | END 2023-08-17 09:56 | disposition home or self-care (01) | LOC: SPT 09:56 | PROVIDERS: PCP Nurse Practitioner Family; Visit Provider Podiatrist Foot & Ankle Surgery | DX: Z46.89 Encounter for fitting and adjustment of other specified devices (principal); M76.822 Posterior tibial tendinitis, left leg | CPT/HCPCS: 99213; L1902 ==

== ENCOUNTER → 2023-09-07 07:52 | Outpatient (BNVA) | payer MEDICARE, OTHER, SELFPAY | PROVIDERS: PCP Nurse Practitioner Family; Visit Provider Podiatrist Foot & Ankle Surgery | DX: M76.822 Posterior tibial tendinitis, left leg (principal) | CPT/HCPCS: 99213 ==

== ENCOUNTER 2023-10-04 14:09 | Outpatient (CLI) | payer MEDICARE, OTHER, SELFPAY | END 2023-10-04 14:10 | disposition home or self-care (01) | LOC: SPT 14:10 | PROVIDERS: PCP Nurse Practitioner Family; Visit Provider Podiatrist Foot & Ankle Surgery | DX: Z46.89 Encounter for fitting and adjustment of other specified devices (principal); M25.572 Pain in left ankle and joints of left foot; M76.822 Posterior tibial tendinitis, left leg | CPT/HCPCS: L3030 ==

== ENCOUNTER → 2023-11-30 09:41 | Outpatient (BNVA) | payer MEDICARE, OTHER, SELFPAY | PROVIDERS: PCP Nurse Practitioner Family; Visit Provider Internal Medicine Cardiovascular Disease | DX: I48.91 Unspecified atrial fibrillation (principal) | CPT/HCPCS: 85610 ==

== ENCOUNTER → 2023-12-07 10:01 | Outpatient (BNVA) | payer MEDICARE, OTHER, SELFPAY | PROVIDERS: PCP Nurse Practitioner Family; Visit Provider Podiatrist Foot & Ankle Surgery | DX: M76.822 Posterior tibial tendinitis, left leg (principal) | CPT/HCPCS: 99213 ==

== ENCOUNTER → 2023-12-28 10:48 | Outpatient (BNVA) | payer MEDICARE, OTHER, SELFPAY | PROVIDERS: PCP Nurse Practitioner Family; Visit Provider Internal Medicine Cardiovascular Disease | DX: I48.91 Unspecified atrial fibrillation (principal) | CPT/HCPCS: 85610 ==

== ENCOUNTER 2024-01-09 07:40 | Outpatient (CLI) | payer MEDICARE, OTHER, SELFPAY ==
--- NOTE | 2024-01-09 07:44 | CT_ITS ---
WS: [id number] CT ABDOMEN AND PELVIS WITH CONTRAST HISTORY: ABDOMINAL PAIN TECHNIQUE: Imaging performed of the abdomen and pelvis with IV contrast. Single phase imaging of the abdomen. Coronal and sagittal reformats are submitted. All CT scans at [facility] use at [address] one of these dose optimization techniques: automated exposure control; mA and/or kV adjustment per patient size (includes targeted exams where dose is matched to clinical indication); or iterative re construction. IV CONTRAST: Omnipaque 350; 100 mL IV. Oral contrast: No DLP: 1023.96 mGy COMPARISON: 12/13/2022 Lower thorax: Lung bases are clear. Mild cardiomegaly. No pericardial effusion. Moderate-sized hiatal hernia. Liver/biliary system: Normal size with no intrahepatic dilatation. Prominent diaphragmatic slip along the RIGHT lateral liver. Portal vein is normal. Gallbladder: Prior cholecystectomy. Pancreas: Normal size pancreas and pancreatic duct. No adjacent inflammation. Spleen: Normal size spleen. No mass or infarct. Adrenal glands: Normal. Right kidney: Normal size kidney with no obstruction. There are a few scattered cortical cysts which are unchanged. No solid mass. Left kidney: Lobulated cyst upper pole 2.6 x 1.8 cm has been previously described. No solid mass or o bstruction. Aorta: Mild atherosclerosis with no aneurysm. Lymphadenopathy: None. Free fluid: None. GI tract: Nondistended stomach. No small bowel obstruction. Prior appendectomy. Numerous diverticula in the descending and sigmoid colon. No acute diverticulitis. Abdominal wall: Fat containing umbilical hernia. Pelvis: Prior hysterectomy. No free fluid. There is a RIGHT inguinal hernia. There is a loop of small bowel that extends into the orifice but there is no obstruction. Similar pattern was noted on the pr ior study from 02/19/2021. Bones: Thoracolumbar scoliosis. CT/CT abdomen pelvis w con* [id number] IMPRESSION: 1. Status post cholecystectomy, appendectomy and hysterectomy. 2. Moderate diverticular disease in the distal colon. 3. No acute diverticulitis. 4. Bilateral renal cysts. 5. Moderate size hiatal hernia. 6. No ascites or adenopathy.
--- NOTE | 2024-01-09 07:44 | CT_ITS ---
WS: [id number] CTA THORACIC AORTA WITH AND WITHOUT CONTRAST HISTORY: ASCENDING AORTIC ANEURYSM TECHNIQUE: CT imaging of the thorax is performed with and without contrast. After noncontrast imaging is performed, CT angiogram is performed during injection of Omnipaque 350; 100 mL IV.. Sagittal and coronal reconstructions, sagittal and coronal MIP imaging is submitted. All CT scans at [facility] use at least one of these dose optimization techniques: automated exposure control; mA and/or k V adjustment per patient size (includes targeted exams where dose is matched to clinical indication); or iterative reconstruction. DLP: 1023.96 mGy.cm COMPARISON: 12/13/2022 Very good opacification of the thoracic aorta. Mild dilatation of the ascending aorta to 4.1 cm. No i nterval change. There is no dissection. Mild atherosclerotic plaque. Sinus of Valsalva is normal at 3 .6 cm. Sinotubular junction 2.8 cm. Normal descending aorta. Pulmonary artery size is normal. No pulm onary embolism. Moderate cardiac enlargement. Most significant enlargement involves the atria. No pericardial or pleu ral effusion. Pleural-based nodule in the posterior RIGHT lower lobe is identified. There is adjacent mild pleural thickening. Nodule measures 7.5 mm and has increased in size since 12/13/2022. Small mediastinal and hi lar lymph nodes. No adenopathy. Prior cholecystectomy. Superior pole LEFT renal cyst 2.6 x 2.0 cm. Moderate size hiatal hernia. Scoli osis thoracic spine. CT/CT angio chest [id number] IMPRESSION: 1. No change in mild dilatation of the ascending and thoracic aorta 4.2 cm. 2. Cardiac enlargement. Moderate biatrial enlargement. 3. Moderate hiatal hernia. 4. Indeterminate, pleural based 7.5 mm nodule RIGHT lower lobe has increased i n size since 12/13/2022. Recommend follow-up chest CT in 6 months to document con tinued stability or enlargement.
[2024-01-09] MEDS: iohexol 350 mg/mL 500 mL Btl (per mL) IV (09:03)
== END 2024-01-09 07:41 | disposition home or self-care (01) ==
LOC: RAD 07:40
PROVIDERS: PCP Nurse Practitioner Family; Visit Provider Nurse Practitioner Family
DX: I71.21 Aneurysm of the ascending aorta, without rupture (principal); I51.7 Cardiomegaly; R91.1 Solitary pulmonary nodule; Z90.49 Acquired absence of other specified parts of digestive tract; K44.9 Diaphragmatic hernia without obstruction or gangrene
CPT/HCPCS: 71275; 74177; Q9967

== ENCOUNTER 2024-01-19 11:56 | Oncology outpatient (recurring) (ONCR) | payer MEDICARE, OTHER, SELFPAY ==
[2024-01-16 12:18] LABS: Vitamin B12 587 pg/mL (232-1245)
[2024-01-16 12:55] LABS: Folate Level > 20.0 ng/mL (4.8-37.3)
[2024-01-19 18:01] LABS: Methylmalonic Acid 134 nmol/L (69-390)
== END 2024-02-08 23:59 | disposition home or self-care (01) ==
PROVIDERS: Internal Medicine; PCP Nurse Practitioner Family; Visit Provider Internal Medicine Medical Oncology
DX: C50.811 Malignant neoplasm of overlapping sites of right female breast (principal); Z17.0 Estrogen receptor positive status [ER+]; Z90.13 Acquired absence of bilateral breasts and nipples; M81.0 Age-related osteoporosis without current pathological fracture; Z79.818 Long term (current) use of other agents affecting estrogen receptors and estrogen levels; Z79.899 Other long term (current) drug therapy
CPT/HCPCS: 36415; 82607; 82746; 83921; 99214

== ENCOUNTER → 2024-01-23 11:14 | Outpatient (BNVA) | payer MEDICARE, OTHER, SELFPAY | PROVIDERS: PCP Nurse Practitioner Family; Visit Provider Nurse Practitioner Family | DX: I48.91 Unspecified atrial fibrillation (principal) | CPT/HCPCS: 85610 ==

== ENCOUNTER → 2024-02-09 14:39 | Outpatient (BNVA) | payer MEDICARE, OTHER, SELFPAY | PROVIDERS: PCP Nurse Practitioner Family; Visit Provider Internal Medicine | DX: I48.91 Unspecified atrial fibrillation (principal); Z79.01 Long term (current) use of anticoagulants; R07.89 Other chest pain; R06.00 Dyspnea, unspecified | CPT/HCPCS: 99214 ==

== ENCOUNTER → 2024-02-10 09:38 | Outpatient (BNVA) | payer MEDICARE, OTHER, SELFPAY | PROVIDERS: PCP Nurse Practitioner Family; Referring Provider Nurse Practitioner Family; Visit Provider Internal Medicine | DX: I48.91 Unspecified atrial fibrillation (principal); E07.9 Disorder of thyroid, unspecified; E05.90 Thyrotoxicosis, unspecified without thyrotoxic crisis or storm | CPT/HCPCS: 99204 ==

== ENCOUNTER 2024-02-17 12:34 | Outpatient (CLI) | payer MEDICARE, OTHER, SELFPAY ==
[2024-02-17 13:43] LABS: Free T4 Free Thyroxine 1.03 ng/dL (0.82-1.77); Thyroid Stimulating Hormone 0.17 uIU/mL (0.27-4.20)
[2024-02-18 10:49] LABS: T3 Total 110 ng/dL (76-181)
[2024-02-20 13:49] LABS: Thyroglobulin AB <1 IU/mL (< or = 1)
[2024-02-21 13:30] LABS: Thyroid Peroxidase Antobodies <1 IU/mL (<9)
== END 2024-02-17 12:35 | disposition home or self-care (01) ==
LOC: LAB 12:37
PROVIDERS: PCP Nurse Practitioner Family; Visit Provider Internal Medicine
DX: I48.91 Unspecified atrial fibrillation (principal); E07.9 Disorder of thyroid, unspecified
CPT/HCPCS: 84439; 84443; 84480; 86376; 86800

== ENCOUNTER 2024-02-20 06:00 | Outpatient (CLI) | payer MEDICARE, OTHER, SELFPAY | END 2024-02-20 06:01 | disposition home or self-care (01) | LOC: CDL 03-23 07:29 | PROVIDERS: PCP Nurse Practitioner Family; Visit Provider Internal Medicine | DX: I48.91 Unspecified atrial fibrillation (principal) | CPT/HCPCS: 85610 ==

== ENCOUNTER → 2024-02-27 11:25 | Outpatient (BNVA) | payer MEDICARE, OTHER, SELFPAY | PROVIDERS: PCP Nurse Practitioner Family; Visit Provider Internal Medicine Cardiovascular Disease | DX: I48.91 Unspecified atrial fibrillation (principal) | CPT/HCPCS: 85610 ==

== ENCOUNTER → 2024-03-27 09:34 | Outpatient (BNVA) | payer MEDICARE, OTHER, SELFPAY | PROVIDERS: PCP Nurse Practitioner Family; Visit Provider Internal Medicine | DX: I48.91 Unspecified atrial fibrillation (principal) | CPT/HCPCS: 85610 ==

== ENCOUNTER → 2024-04-03 09:37 | Outpatient (BNVA) | payer MEDICARE, OTHER, SELFPAY | PROVIDERS: PCP Nurse Practitioner Family; Visit Provider Internal Medicine | DX: I48.91 Unspecified atrial fibrillation (principal) | CPT/HCPCS: 85610 ==

== ENCOUNTER 2024-04-17 08:48 | Outpatient (CLI) | payer MEDICARE, OTHER, SELFPAY ==
[2024-04-17 09:50] LABS: Free T4 Free Thyroxine 1.15 ng/dL (0.82-1.77); Thyroid Stimulating Hormone 0.52 uIU/mL (0.27-4.20)
[2024-04-18 09:15] LABS: T3 Total 116 ng/dL (76-181)
== END 2024-04-17 08:49 | disposition home or self-care (01) ==
LOC: LAB 08:49
PROVIDERS: PCP Nurse Practitioner Family; Visit Provider Internal Medicine
DX: E07.9 Disorder of thyroid, unspecified (principal)
CPT/HCPCS: 36415; 84439; 84443; 84480

== ENCOUNTER → 2024-04-20 08:35 | Outpatient (BNVA) | payer MEDICARE, OTHER, SELFPAY | PROVIDERS: PCP Nurse Practitioner Family; Visit Provider Internal Medicine | DX: E05.90 Thyrotoxicosis, unspecified without thyrotoxic crisis or storm (principal); I48.91 Unspecified atrial fibrillation | CPT/HCPCS: 99214 ==

== ENCOUNTER → 2024-05-01 09:41 | Outpatient (BNVA) | payer MEDICARE, OTHER, SELFPAY | PROVIDERS: PCP Nurse Practitioner Family; Visit Provider Internal Medicine | DX: I48.91 Unspecified atrial fibrillation (principal) | CPT/HCPCS: 85610 ==

== ENCOUNTER → 2024-05-08 09:45 | Outpatient (BNVA) | payer MEDICARE, OTHER, SELFPAY | PROVIDERS: PCP Nurse Practitioner Family; Visit Provider Internal Medicine | DX: I48.91 Unspecified atrial fibrillation (principal) | CPT/HCPCS: 85610 ==

== ENCOUNTER → 2024-06-05 10:10 | Outpatient (BNVA) | payer MEDICARE, OTHER, SELFPAY | PROVIDERS: PCP Nurse Practitioner Family; Visit Provider Internal Medicine | DX: I48.91 Unspecified atrial fibrillation (principal) | CPT/HCPCS: 85610 ==

== ENCOUNTER → 2024-06-11 10:42 | Outpatient (BNVA) | payer MEDICARE, OTHER, SELFPAY | PROVIDERS: PCP Nurse Practitioner Family; Visit Provider Internal Medicine | DX: I48.91 Unspecified atrial fibrillation (principal) | CPT/HCPCS: 85610 ==

== ENCOUNTER 2024-07-09 07:15 | Emergency (ER) | payer MEDICARE, OTHER, SELFPAY ==
[2024-07-09] VITALS (10 sets, daily range): BP systolic 121–135; BP diastolic 72–84; PULSE 66–92; RESP 14–21; TEMP 36.6; O2SAT 93–97; BMI 24.5
--- NOTE | 2024-07-09 07:24 | ECG_ITS ---
[facility] 2024-07[facility]09 Pat Name: Sophia Ugarte Department: Room: Gender: Female Formal Waiter/Waitress: : [id number] Requested By: Edgard Carpenter Order Number: [id number] Kai MD: Piyush Aguirre M.D. Measurements Intervals Hundred Rate: 100 P: 0 NH: 0 QRS: -21 QRSD: 82 T: 0 QT: 337 QTc: 435 Interpretive Statements ATRIAL FIBRILLATION WITH RAPID VENTRICULAR RESPONSE BORDERLINE LEFT AXIS DEVIATION [QRS AXIS < -20] POSSIBLE RIGHT VENTRICULAR CONDUCTION DELAY [RSR (QR) IN V1/V2] ABNORMAL RHYTHM ECG No previous ECG available for comparison Electronically Signed On 07-09-2024 16:34:51 [employer] by Piyush Aguirre M.D. [email or web address]
--- NOTE | 2024-07-09 07:24 | XR_ITS ---
WS: [id number] PORTABLE CHEST HISTORY: cp COMPARISON: None available. Lungs are well-expanded. Thin linear atelectasis versus scar RIGHT lower lung is new. The remaining l ungs are clear. No pneumonia. Normal vasculature. No pleural effusion or pneumothorax. Cardiac size: Normal. Mediastinum/Aorta: Normal mediastinum. No osseous abnormality seen. Prior cholecystectomy. XR/XR chest 1V portable [id number] IMPRESSION: 1. No pneumonia. 2. Thin platelike atelectasis or scar RIGHT lower lobe.
--- NOTE | 2024-07-09 07:29 | CT_ITS ---
WS: [id number] CTA OF THE CHEST WITH PULMONARY EMBOLISM PROTOCOL TECHNIQUE: High-resolution contrast enhanced CTA of the chest with coronal and sagittal reformatted i mages with pulmonary embolism protocol. MIP images are also reviewed. CLINICAL INFORMATION: cp COMPARISON: 01/09/2024 DLP: 279.[address] scans at [facility] use at least one of these dose optimization techniques: automated e xposure control; mA and/or kV adjustment per patient size (includes targeted exams where dose is matc hed to clinical indication); or iterative reconstruction. FINDINGS: Proximal main pulmonary arteries are normal. Normal segmental and subsegmental pulmonary ar teries. No evidence of pulmonary embolus. Chronic emphysematous changes. Lungs are well aerated. No f ocal pneumonia. Trace RIGHT pleural fluid/pleural thickening. Stable dilated ascending thoracic aorta measuring 4.2 cm. Cardiomegaly. Small esophageal hiatal herni a. Prior cholecystectomy. Normal RIGHT adrenal gland. Small LEFT adrenal nodule likely adenoma. Coronary calcification. No mediastinal or hilar lymphadenopathy. Mild thoracic curve. Mild thoracic k yphosis. Chronic anterior wedging in the midthoracic spine. CT/CT angio chest PE protcl [id number] IMPRESSION: 1. No evidence of pulmonary embolus. 2. Chronic emphysematous changes. Lungs are well aerated. Trace pleural fluid or pleural thickening in the RIGHT lower lobe. 3. No focal pneumonia 4. Slight atelectasis in the lingula and RIGHT middle lobe. 5. Cardiomegaly.
--- NOTE | 2024-07-09 07:30 | ED_ITS ---
HPI - Chest Pain 2 General: Chief Complaint: Chest Pain Stated Complaint: rapid, chest pain, hypotensive Time Seen by Provider: 07/09/24 07:20 Source: patient Mode of arrival: ambulatory Limitations: no limitations History of Present Illness: 73-year-old female with a history of mckenna ast cancer states she has been having chest pain since last night states it has been a pain across her chest she states it resolved last night with her nitro she had her up here for an ultrasound showed having pain again came to the ER she taken a nitro just prior states she is pain-free again. She denies any fevers had some mild shortness of breath. Associated symptoms: Deny abdominal pain, dyspnea, fever(s), nausea or vomiting Related Data Home Medications Medication Instructions Recorded Confirmed cholecalciferol (vitamin D3) 25 50 mcg PO DAILY 01/20/23 07/09/24 mcg (1,000 unit) capsule sennosides 8.6 mg capsule (senna) 17.2 mg PO DAILY 01/20/23 07/09/24 loratadine 10 mg tablet (Allergy 10 mg PO DAILY 02/09/24 07/09/24 Relief (loratadine)) acetaminophen 325 mg tablet 325 mg PO QID PRN Pain 07/09/24 07/09/24 (Tylenol) ketoconazole 2 % shampoo 1 applic topical DAILY PRN scalp 07/09/24 07/09/24 latanoprost 0.005 % eye drops 1 drp ophthalmic (eye) QPM 07/09/24 07/09/24 timolol maleate 0.5 % eye drops 1 drp ophthalmic (eye) QAM 07/09/24 07/09/24 Previous Rx's Medication Instructions Recorded pantoprazole 40 mg tablet,delayed 40 mg PO DAILY #30 tabs 06/13/23 release Supinator to the left #1 ea 08/17/23 SOLE SUPPORTS #1 ea 09/07/23 warfarin 5 mg tablet 5 mg PO .per protocol #90 tabs 12/01/23 exemestane 25 mg tablet 25 mg PO DAILY #30 tabs 01/19/24 methimazole 5 mg tablet 5 mg PO DAILY #90 tabs 03/16/24 warfarin 1 mg tablet 1 mg PO DAILY #90 tabs 05/01/24 metoprolol succinate 50 mg 50 mg PO DAILY #90 tabs 05/10/24 tablet,extended release 24 hr Allergies Allergy/AdvReac Type Severity Reaction Status Date / Time mannitol [From Zometa] Allergy ADR-Vomitin Verified 04/20/24 07:31 g metoclopramide [From Reglan] Allergy Unknown Verified 04/20/24 07:31 Sulfa (Sulfonamide Allergy Unknown Verified 04/20/24 07:31 Antibiotics) water for injection,sterile Allergy ADR-Vomitin Verified 04/20/24 07:31 [From Zometa] g zoledronic acid [From Zometa] Allergy ADR-Vomitin Verified 04/20/24 07:31 g Review of Systems 2 Const: Denies: fever(s), chills, body aches or change in appetite ENMT: Denies: throat pain or dental pain Card: Reports: chest pain Resp: Denies: dyspnea GI: Denies: abdominal pain, nausea, vomiting or diarrhea Musc: Denies: neck pain or back pain Skin/Breast: Denies: rash Neuro: Denies: headache(s) PFSH ED 2 PFSH: Medical History Osteoporosis Malignant neoplasm of upper-outer quadrant of left female breast GERD (gastroesophageal reflux disease) History of malignant melanoma History of nonmelanoma skin cancer DVT (deep venous thrombosis) Anticoagulant long-term use Atrial fibrillation Surgical History History of knee joint replacement Left total knee 05/18/2022 H/O bilateral mastectomy (2018) S/P arthroscopic surgery of right knee S/P removal of ovarian cyst H/O rectocele repair History of hysterectomy with bilateral oophorectomy S/P tonsillectomy S/P cholecystectomy S/P lumpectomy of breast (2008) Left breast lumpectomy with axillary lymph node sampling S/P appendectomy S/P cataract extraction Family History Father Cancer Mother Cancer Social History Smoking and tobacco/nicotine status: never used tobacco/nicotine Household members: spouse Marital status: Physical Exam 2 Const: COMMON NORMALS: no acute distress, patient oriented x3 and healthy appearing HENMT: COMMON NORMALS: normocephalic and atraumatic HEAD & SCALP: n ormocephalic and atraumatic Eye: COMMON NORMALS: conjunctivae normal CONJUNCTIVA: Yes conjunctivae normal Neck/C-Spine: COMMON NORMALS: full ROM and supple Chest: COMMONS NORMALS: normal inspection of the chest Resp: COMMON NORMALS: normal respiratory effort, No retractions, No use of accessory muscles and clear to auscultation bilaterally AUSCULTATION: clear to auscultation bilaterally Cardio: COMMON NORMALS: No murmurs present (Cardio) RHYTHM: abnormal rhythm irregularly irregular GI: COMMON NORMALS: Normal to inspection, nondistended, normoactive bowel sounds present, Soft to palpation, non-tender and no masses PALPATION: Yes Soft to palpation Extremity: COMMON NORMALS: normal to inspection and full ROM Neuro: COMMON NORMALS: patient oriented x3, moves all extremities and no focal motor deficits Psych: COMMON NORMALS: mental status grossly normal, Normal thought process present and cooperative THOUGHT PROCESS: Normal thought process present Skin: COMMON NORMALS: no rashes or lesions noted and no wounds GENERAL SKIN EXAM: no rashes or lesions noted Course 2 Vital Signs: Vital signs: Vital Signs Temperature 97.9 F 07/09/24 07:23 Pulse Rate 80 07/09/24 10:00 Respiratory Rate 16 07/09/24 10:00 Blood Pressure 122/72 07/09/24 09:00 Pulse Oximetry 93 07/09/24 09:32 Oxygen Delivery Me thod Room Air 07/09/24 07:53 MDM - Chest Pain Medical Decision Making Patient presents here with chest pain atypical in nature her troponins here are negative CTA showed no pulmonary embolism she feels improved here she is stable for discharge follow-up with PCP return if worsening. Medical Records I reviewed the patient's medical records. Lab Data I reviewed the patient's lab results. 07/09/24 07:26 07/09/24 07:26 Radiology Impressions Chest X-Ray 07/09/24 07:24 IMPRESSION: 1. No pneumonia. 2. Thin platelike atelectasis or scar RIGHT lower lobe. Chest CTA 07/09/24 07:29 IMPRESSION: 1. No evidence of pulmonary embolus. 2. Chronic emphysematous changes. Lungs are well aerated. Trace pleural fluid or pleural thickening in the RIGHT lower lobe. 3. No focal pneumonia 4. Slight atelectasis in the lingula and RIGHT middle lobe. 5. Cardiomegaly. Laboratory Results WBC 4.70 10^3/uL (3.29-11.43) 07/09/24 07:26 RBC 3.90 10^6/uL (3.85-5.65) 07/09/24 07:26 Hgb 13.50 g/dL (11.27-16.99) 07/09/24 07:26 Hct 39.8 % (36-47) 07/09/24 07:26 MCV 102.1 fl (85-98) H 07/09/24 07:26 MCH 34.6 pg (27-33) H 07/09/24 07:26 MCHC 33.9 g/dL (30-55) 07/09/24 07:26 RDW 13.7 % (12.1-15.1) 07/09/24 07:26 Plt Count 219 10^3/cmm (157-399) 07/09/24 07:26 MPV 9.8 fL (7.4-10.4) 07/09/24 07:26 Neut % (Auto) 67.3 % 07/09/24 07:26 Lymph % (Auto) 19.1 % 07/09/24 07:26 Phillips % (Auto) 11.5 % 07/09/24 07:26 Eos % (Auto) 1.7 % 07/09/24 07:26 Baso % (Auto) 0.2 % 07/09/24 07:26 Neut # (Auto) 3.16 10^3/uL (1.8-7.7) 07/09/24 07:26 Lymph # (Auto) 0.9 10^3/uL (0.8-4.8) 07/09/24 07:26 Phillips # (Auto) 0.5 10^3/uL (0.2-0.9) 07/09/24 07:26 Eos # (Auto) 0.1 10^3/uL (0.0-0.8) 07/09/24 07:26 Baso # (Auto) 0.0 10^3/uL (0.0-0.1) 07/09/24 07:26 Nucleated RBC % (auto) 0 % 07/09/24 07:26 Nucleated RBCs # 0.0 /100WBC 07/09/24 07:26 PT 21.70 SECONDS (12.1-14.9) H 07/09/24 07:26 INR 1.82 (0.8-1.2) H 07/09/24 07:26 Sodium 138 mmol/L (136-145) 07/09/24 07:26 Potassium 3.6 mmol/L (3.5-5.1) 07/09/24 07:26 Chloride 105 mmol/L (98-107) 07/09/24 07:26 Carbon Dioxide 22 mmol/L (22-29) 07/09/24 07:26 Anion Gap 14.6 (5-19) 07/09/24 07:26 BUN 14 mg/dL (8-23) 07/09/24 07:26 Creatinine 0.7 mg/dL (0.5-0.9) 07/09/24 07:26 GFR Calculation Not Reportable 07/09/24 07:26 Glucose 96 mg/dL (65-115) 07/09/24 07:26 Calculated Osmolality 286 mOsm/kg (285-295) 07/09/24 07:26 Calcium 9.6 mg/dL (8.5-10.5) 07/09/24 07:26 Total Bilirubin 0.7 mg/dL (0.15-1.2) 07/09/24 07:26 AST 42 U/L (0-32) H 07/09/24 07:26 ALT 27 U/L (0-33) 07/09/24 07:26 Alkaline Phosphatase 78 U/L (35-105) 07/09/24 07:26 Troponin T Baseline 15 ng/L (0-10) H 07/09/24 07:26 Troponin T 120 Minute 12.32 ng/L (0-10) H 07/09/24 09:57 Delta Troponin T -2.68 ABS# (0-10) L 07/09/24 09:57 Total Protein 6.5 g/dL (6.6-8.7) L 07/09/24 07:26 Albumin 3.7 g/dL (3.5-5.2) 07/09/24 07:26 Globulin 2.8 g/dL (1.3-4.6) 07/09/24 07:26 Lipase 17 U/L (13-60) 07/09/24 07:26 All radiology interpretation(s) finalized by discharge EKG Data EKG 1: I personally reviewed and interpreted this EKG as follows: EKG interpretation date: 07/09/24 EKG interpretation time: 07:18 Interpretation: afib hr [address] or t wave abnormalities qrs 82 qtc 394 Discharge Plan Discharge Patient Disposition: Home Clinical Impression: Chest pain Prescriptions: No Action cholecalciferol (vitamin D3) 25 mcg (1,000 unit) capsule 50 mcg PO DAILY loratadine [Allergy Relief (loratadine)] 10 mg tablet 10 mg PO DAILY exemestane 25 mg tablet 25 mg PO DAILY Qty: 30 5RF (DME) Supinator to the left See Rx Instructions .Route .MEDSUPPLY Qty: 1 0RF Rx Instructions: As directed (DME) SOLE SUPPORTS See Rx Instructions .Route .MEDSUPPLY Qty: 1 0RF Rx Instructions: As directed senna 8.6 mg capsule 17.2 mg PO DAILY pantoprazole 40 mg tablet,delayed release (DR/EC) 40 mg PO DAILY Qty: 30 1RF Rx Instructions: Need to discuss continued use with PCP warfarin 5 mg tablet 5 mg PO .per protocol Qty: 90 3RF Protocol: Dose Management Condition: Tuesday Dose/Route: 5 mg Instruction: 1 x 5 mg tablet Condition: Tuesday Dose/Route: 5 mg Instruction: 1 x 5 mg tablet Condition: Tuesday Dose/Route: 2.5 mg Instruction: 0.5 x 5 mg tablets Condition: Tuesday Dose/Route: 5 mg Instruction: 1 x 5 mg tablet Condition: Dose/Route: 2.5 mg Instruction: 0.5 x 5 mg tablets Condition: Tuesday Dose/Route: 5 mg Instruction: 1 x 5 mg tablet Condition: Tuesday Dose/Route: 5 mg Instruction: 1 x 5 mg tablet Protocol Text: Adjustment Start Date: Tuesday06/11/24 INR Value: 24.9 Seconds INR Date: 06/11/24 Recheck Date: 07/09/24 methimazole 5 mg tablet 5 mg PO DAILY Qty: 90 1RF warfarin 1 mg tablet 1 mg PO DAILY Qty: 90 1RF Protocol: Dose Management Condition: Tuesday Dose/Route: 5 mg Instruction: 1 x 5 mg tablet Condition: Tuesday Dose/Route: 5 mg Instruction: 1 x 5 mg tablet Condition: Tuesday Dose/Route: 2.5 mg Instruction: 0.5 x 5 mg tablets Condition: Tuesday Dose/Route: 5 mg Instruction: 1 x 5 mg tablet Condition: Dose/Route: 2.5 mg Instruction: 0.5 x 5 mg tablets Condition: Tuesday Dose/Route: 5 mg Instruction: 1 x 5 mg tablet Condition: Tuesday Dose/Route: 5 mg Instruction: 1 x 5 mg tablet Protocol Text: Adjustment Start Date: Tuesday06/11/24 INR Value: 24.9 Seconds INR Date: 06/11/24 Recheck Date: 07/09/24 metoprolol succinate 50 mg tablet extended release 24 hr 50 mg PO DAILY Qty: 90 3RF latanoprost 0.005 % drops 1 drp ophthalmic (eye) QPM ketoconazole 2 % shampoo 1 applic TOPICAL DAILY PRN (Reason: scalp) timolol maleate 0.5 % drops 1 drp ophthalmic (eye) QAM acetaminophen [Tylenol] 325 mg Tablet 325 mg PO QID PRN (Reason: Pain) Discharge Orders: Discharge ED (Routine); Ordered 07/09/24 Ordered By: Edgard Carpenter Referrals: Rita Coles FNP [Primary Care Provider] - Discharge Diet: Advance as tolerated Discharge Activity: Resume usual activity Patient Instructions: Chest Pain (ED) Coding Level of Care Code ED Water Supply Engineer for Maribell Nowak
[2024-07-09 07:42] LABS: Basophils % 0.2 %; Eosinophils # 0.1 10^3/uL (0.0-0.8); Eosinophils % 1.7 %; Hematocrit 39.8 % (36-47); Lymphocytes # 0.9 10^3/uL (0.8-4.8); Lymphocytes % 19.1 %; Mean Corpuscular HGB Conc 33.9 g/dL (30-55); Mean Corpuscular Hemoglobin 34.6 pg (27-33); Mean Corpuscular Volume 102.1 fl (85-98); Mean Platelet Volume 9.8 fL (7.4-10.4); Monocytes # 0.5 10^3/uL (0.2-0.9); Monocytes % 11.5 %; Neutrophils # 3.16 10^3/uL (1.8-7.7); Neutrophils % 67.3 %; Nucleated Red Blood Cells % 0 %; Platelet Count 219 10^3/cmm (157-399); Red Cell Distribution Width 13.7 % (12.1-15.1)
[2024-07-09 07:53] LABS: INR 1.82 (0.8-1.2)
[2024-07-09 07:59] LABS: Alanine Aminotransferase 27 U/L (0-33); Albumin Level 3.7 g/dL (3.5-5.2); Alkaline Phosphatase 78 U/L (35-105); Anion Gap 14.6 (5-19); Aspartate Amino Transferase 42 U/L (0-32); Blood Urea Nitrogen 14 mg/dL (8-23); Calcium 9.6 mg/dL (8.5-10.5); Carbon Dioxide 22 mmol/L (22-29); Chloride 105 mmol/L (98-107); Creatinine Clr Calc Pharmacy 62.7755; Globulin 2.8 g/dL (1.3-4.6); Glucose 96 mg/dL (65-115); Lipase 17 U/L (13-60); Osmolality Calculated 286 mOsm/kg (285-295); Potassium 3.6 mmol/L (3.5-5.1); Sodium 138 mmol/L (136-145); Total Bilirubin 0.7 mg/dL (0.15-1.2); Total Protein 6.5 g/dL (6.6-8.7)
[2024-07-09 08:00] LABS: Troponin(5th) Baseline 15 ng/L (0-10)
[2024-07-09] MEDS: iohexol 350 mg/mL 500 mL Btl (per mL) IV (08:14)
--- NOTE | 2024-07-09 09:24 | ECG_ITS ---
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 Measurements Intervals [place] Rate: 91 P: 0 ND: 0 QRS: -26 QRSD: 98 T: 0 QT: 349 QTc: 430 Interpretive Statements ATRIAL FIBRILLATION INCOMPLETE RIGHT BUNDLE BRANCH BLOCK [90+ ms QRS DURATION, TERMINAL R IN V1/V2, 40+ ms S IN I/aVL/V4/V5/V6] SEPTAL MYOCARDIAL INFARCTION , OF INDETERMINATE AGE [40+ ms Q WAVE IN V1/V2] Compared to ECG 07/09/2024 07:18:04 Incomplete right bundle-branch block now present Myocardial infarct finding now present Electronically Signed On 07-09-2024 16:51:25 SHIPPING & RECEIVING LEAD by Piyush Aguirre M.D. [email or web address]
[2024-07-09 10:51] LABS: Troponin 5 2HR 12.32 ng/L (0-10)
[2024-07-09 11:02] LABS: Troponin 5 2HR Delta -2.68 ABS# (0-10)
== END 2024-07-09 11:13 | disposition home or self-care (01) ==
PROVIDERS: Emergency Provider Emergency Medicine; PCP Nurse Practitioner Family
DX: R07.9 Chest pain, unspecified (principal); Z79.01 Long term (current) use of anticoagulants; Z85.3 Personal history of malignant neoplasm of breast
CPT/HCPCS: 36415; 71045; 71275; 80053; 83690; 84484; 85025; 85610; 93005; 99285

== ENCOUNTER → 2024-07-17 09:17 | Outpatient (BNVA) | payer MEDICARE, OTHER, SELFPAY | PROVIDERS: PCP Nurse Practitioner Family; Visit Provider Internal Medicine Cardiovascular Disease | DX: I48.91 Unspecified atrial fibrillation (principal) | CPT/HCPCS: 85610 ==

== ENCOUNTER 2024-07-19 09:33 | Outpatient (CLI) | payer MEDICARE, OTHER, SELFPAY ==
[2024-07-19 10:05] LABS: Basophils % 0.8 %; Eosinophils # 0.1 10^3/uL (0.0-0.8); Eosinophils % 1.5 %; Hematocrit 39.8 % (36-47); Lymphocytes # 1.2 10^3/uL (0.8-4.8); Lymphocytes % 23.3 %; Mean Corpuscular HGB Conc 32.4 g/dL (30-55); Mean Corpuscular Hemoglobin 33.2 pg (27-33); Mean Corpuscular Volume 102.6 fl (85-98); Mean Platelet Volume 9.6 fL (7.4-10.4); Monocytes # 0.7 10^3/uL (0.2-0.9); Monocytes % 13.2 %; Neutrophils # 3.19 10^3/uL (1.8-7.7); Nucleated Red Blood Cells % 0 %; Platelet Count 272 10^3/cmm (157-399); Red Blood Count 3.88 10^6/uL (3.85-5.65); Red Cell Distribution Width 13.8 % (12.1-15.1); White Blood Count 5.23 10^3/uL (3.29-11.43)
[2024-07-19 10:42] LABS: Alanine Aminotransferase 20 U/L (0-33); Albumin Level 4.1 g/dL (3.5-5.2); Alkaline Phosphatase 75 U/L (35-105); Anion Gap 10.7 (5-19); Aspartate Amino Transferase 24 U/L (0-32); Blood Urea Nitrogen 12 mg/dL (8-23); Calcium 10.1 mg/dL (8.5-10.5); Carbon Dioxide 27 mmol/L (22-29); Chloride 108 mmol/L (98-107); Globulin 2.6 g/dL (1.3-4.6); Glucose 102 mg/dL (65-115); Osmolality Calculated 292 mOsm/kg (285-295); Potassium 4.7 mmol/L (3.5-5.1); Sodium 141 mmol/L (136-145); Total Bilirubin 0.5 mg/dL (0.15-1.2); Total Protein 6.7 g/dL (6.6-8.7)
== END 2024-07-19 09:34 | disposition home or self-care (01) ==
LOC: LAB 09:35
PROVIDERS: PCP Nurse Practitioner Family; Visit Provider Nurse Practitioner Family
DX: C50.811 Malignant neoplasm of overlapping sites of right female breast (principal)
CPT/HCPCS: 36415; 80053; 85025

== ENCOUNTER 2024-07-19 10:11 | Oncology outpatient (recurring) (ONCR) | payer MEDICARE, OTHER, SELFPAY | END 2024-08-10 23:59 | disposition home or self-care (01) | PROVIDERS: PCP Nurse Practitioner Family; Visit Provider Internal Medicine Medical Oncology | DX: C50.811 Malignant neoplasm of overlapping sites of right female breast (principal); M81.0 Age-related osteoporosis without current pathological fracture; Z17.0 Estrogen receptor positive status [ER+]; Z90.13 Acquired absence of bilateral breasts and nipples; Z79.818 Long term (current) use of other agents affecting estrogen receptors and estrogen levels; Z79.899 Other long term (current) drug therapy; C50.412 Malignant neoplasm of upper-outer quadrant of left female breast; Z85.820 Personal history of malignant melanoma of skin | CPT/HCPCS: 99214 ==

== ENCOUNTER → 2024-08-14 10:17 | Outpatient (BNVA) | payer MEDICARE, OTHER, SELFPAY | PROVIDERS: PCP Nurse Practitioner Family; Visit Provider Internal Medicine Cardiovascular Disease | DX: I48.91 Unspecified atrial fibrillation (principal) | CPT/HCPCS: 85610 ==

== ENCOUNTER → 2024-09-11 09:55 | Outpatient (BNVA) | payer MEDICARE, OTHER, SELFPAY | PROVIDERS: PCP Nurse Practitioner Family; Visit Provider Internal Medicine Cardiovascular Disease | DX: I48.91 Unspecified atrial fibrillation (principal) | CPT/HCPCS: 85610 ==

== ENCOUNTER 2024-10-15 10:44 | Outpatient (CLI) | payer MEDICARE, OTHER, SELFPAY ==
[2024-10-15 11:44] LABS: Free T4 Free Thyroxine 0.83 ng/dL (0.82-1.77)
[2024-10-16 08:54] LABS: T3 Total 81 ng/dL (76-181)
== END 2024-10-15 10:45 | disposition home or self-care (01) ==
LOC: LAB 10:46
PROVIDERS: PCP Nurse Practitioner Family; Visit Provider Internal Medicine
DX: I48.91 Unspecified atrial fibrillation (principal); E05.90 Thyrotoxicosis, unspecified without thyrotoxic crisis or storm
CPT/HCPCS: 36415; 84439; 84443; 84480; 85610

== ENCOUNTER → 2024-11-08 11:51 | Outpatient (BNVA) | payer MEDICARE, OTHER, SELFPAY | PROVIDERS: PCP Nurse Practitioner Family; Visit Provider Internal Medicine | DX: E05.90 Thyrotoxicosis, unspecified without thyrotoxic crisis or storm (principal); I48.91 Unspecified atrial fibrillation | CPT/HCPCS: 99214 ==

== ENCOUNTER → 2024-11-12 09:31 | Outpatient (BNVA) | payer MEDICARE, OTHER, SELFPAY | PROVIDERS: PCP Nurse Practitioner Family; Visit Provider Internal Medicine | DX: I48.91 Unspecified atrial fibrillation (principal) | CPT/HCPCS: 85610 ==

== ENCOUNTER → 2024-12-17 10:03 | Outpatient (BNVA) | payer MEDICARE, OTHER, SELFPAY | PROVIDERS: PCP Nurse Practitioner Family; Visit Provider Internal Medicine | DX: I48.91 Unspecified atrial fibrillation (principal) | CPT/HCPCS: 85610 ==

== ENCOUNTER → 2024-12-18 13:32 | Outpatient (BNVA) | payer MEDICARE, OTHER, SELFPAY | PROVIDERS: PCP Nurse Practitioner Family; Visit Provider Internal Medicine | DX: I48.91 Unspecified atrial fibrillation (principal); Z79.01 Long term (current) use of anticoagulants; Z86.718 Personal history of other venous thrombosis and embolism; Z86.73 Personal history of transient ischemic attack (TIA), and cerebral infarction without residual deficits | CPT/HCPCS: 99214 ==

== ENCOUNTER 2024-12-18 14:57 | Oncology outpatient (recurring) (ONCR) | payer MEDICARE, OTHER, SELFPAY ==
--- NOTE | 2024-12-14 13:00 | XR_ITS ---
WS: [id number] SCREENING DEXA SCAN [place] [employer] CLINICAL INFORMATION: aromatase inhibitor use COMPARISON: 2022 FINDINGS: The L1-L4 bone mineral density measures 1.00. This corresponds to a T score score of -1.6 and Z score of -0.2. Left femoral neck bone mineral density measures 0.710 g/cm2. This corresponds to a T score of -2.4 and Z score of -0.8. Right femoral neck bone mineral density measures 0.762 g/cm2. This corresponds to a T score -2.0of and Z score of -0.4. Mean femoral neck bone mineral density measures 0.736 g/cm2. This corresponds to a T score of -2.2 and Z score of -0.6. XR/XR DEXA axial skeleton* [id number] IMPRESSION: Osteopenia lumbar spine. Osteopenia femoral necks. Patient's FRAX calculated 10 year probability for major osteoporotic fracture i s 17.8 % and osteoporotic hip fracture is 5.9 %. Bone marrow density lumbar spine increased 6.6% Bone mineral density femoral necks increased 1.9%
[2024-12-18 15:53] LABS: 25 Hydroxy Vitamin D 28 ng/mL (30-100)
== END 2025-01-07 23:59 | disposition home or self-care (01) ==
PROVIDERS: PCP Nurse Practitioner Family; Visit Provider Nurse Practitioner Family
DX: C50.811 Malignant neoplasm of overlapping sites of right female breast (principal); M81.0 Age-related osteoporosis without current pathological fracture; Z17.0 Estrogen receptor positive status [ER+]; Z90.13 Acquired absence of bilateral breasts and nipples; Z79.818 Long term (current) use of other agents affecting estrogen receptors and estrogen levels; Z79.899 Other long term (current) drug therapy; C50.412 Malignant neoplasm of upper-outer quadrant of left female breast; Z85.820 Personal history of malignant melanoma of skin; Z79.811 Long term (current) use of aromatase inhibitors; M87.180 Osteonecrosis due to drugs, jaw; T45.1X5A Adverse effect of antineoplastic and immunosuppressive drugs, initial encounter
CPT/HCPCS: 36415; 77080; 82306

== ENCOUNTER 2024-12-27 08:08 | Outpatient (CLI) | payer MEDICARE, OTHER, SELFPAY ==
[2024-12-27 08:23] VITALS: BMI 25.7
--- NOTE | 2024-12-27 08:25 | ECG_ITS ---
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 Interpretive Statements Lung unchanged pre/post procedure; Intraprocedure shortess of breath; Symptoms resoled by discharge PROCEDURE: At the baseline, the EKG revealed atrial fibrillation with a controlled ventricular response rate. The baseline heart was 84 bpm with a blood pressue of 143/91 mm of Hg Lexiscan was infused over a period of 20 seconds. A total of 0.4 milligrams of Lexiscan was infused. The stress phase was continued for a total of 5 minutes. Heart rate at the end of the stress phase was 105 bpm with a blood pressure 120/74 mm of Hg. The EKG at the peak infusion revealed no significant changes. Sestamibi was injected 20 seconds after the Lexiscan infusion. Heart rate at the end of the recovery phase was 104 bpm with a blood pressure of 122/71 mm of Hg. CONCLUSION: 1. No significant EKG changes with the LexiScan infusion 2. No LexiScan induced chest pain or cardiac arrhythmia 3. Normal blood pressure and heart rate response 4. Sestamibi/sestamibi perfusion scan pending; see separate report. Electronically Signed On 12-30-2024 21:38:14 CDT by Jennifer Meyer M.D. [email or web address] [id number]
--- NOTE | 2024-12-27 08:25 | NMCV_ITS ---
NM kishan perf SPECT r/s* [id number] Sophia Ugarte Age: 74 Gender: F : 1950 Exam Date: 12/27/2024 09:12 Ordering Phys: Piyush Aguirre M.D ([email or web address]) Technologist: LEIANA Anders Exam Location: [facility] Indications: cp STRESS TEST Please see separate stress test report in [facility] for full findings IMAGE PROTOCOL Rest/Stress 1 Lexiscan Day Radiopharmaceutical Dose (mCi) Administration Site Administered by Rest: Tc-99m 10.9 IV Maryann Ramsey, ENFORCEMENT OFFICER Sestamibi Stress:Tc-99m 32.5 IV Maryann Dugangle, ENFORCEMENT OFFICER Sestamibi Rest: 27-Dec-2024 60 Discovery 630 Stress: 27-Dec-2024 30 Discovery 630 0.4mg Lexiscan. Supine position only as patient was unable to lay prone. SPECT RESULTS Technical Quality: Good Raw Data Analysis: Normal Image Corrections: No attenuation or motion correction applied Summed Stress Score: 4 Summed Rest Score: 0 Summed Difference Score: 4 PERFUSION FINDINGS Small to moderate area of minimally decreased tracer uptake involving the mid and apical inferior, mid inferolateral and apical lateral segments. Significant reversibility was noted in this area . FUNCTIONAL RESULTS (calculated via Gated SPECT) Stress Image LV EF (%): 76 Stress EDV (mL):68 TID: 1.17 Stress ESV (mL):16 FUNCTIONAL FINDINGS: Segmental wall motion analysis revealing no gross wall motion abnormalities IMPRESSIONS 1. Myocardial perfusion imaging revealing small to moderate area of minimal reversible defect involving the inferior and inferolateral regions, suggest ischemia in the distribution of the right coronary artery/circumflex artery 2. Normal LV ejection fraction 76% 3. LV wall motion analysis revealing no gross wall motion abnormalities. 4. Normal LV volume 5. Slightly elevated transient ischemic dilatation ratio of 1.17 also may suggest ischemia. No similar previous studies are available for comparison Dr Jennifer Meyer MD [facility] (Electronically Signed) Final Date: 27 December 2024 16:27 S
[2024-12-27] MEDS: regadenoson 0.4 Mg/5 ml Syringe IVP (09:57)
[2024-12-27 10:15] VITALS: BP 122/73; PULSE 98
== END 2024-12-27 08:09 | disposition home or self-care (01) ==
LOC: CDL 08:09
PROVIDERS: PCP Nurse Practitioner Family; Visit Provider Internal Medicine
DX: R07.9 Chest pain, unspecified (principal); R93.1 Abnormal findings on diagnostic imaging of heart and coronary circulation
CPT/HCPCS: 36415; 78452; 93017; 96374; A9500; J2785

== ENCOUNTER → 2025-01-08 12:53 | Outpatient (BNVA) | payer MEDICARE, OTHER, SELFPAY | PROVIDERS: PCP Nurse Practitioner Family; Visit Provider Nurse Practitioner Family | DX: I48.0 Paroxysmal atrial fibrillation (principal); Z79.01 Long term (current) use of anticoagulants; I71.21 Aneurysm of the ascending aorta, without rupture; Z86.718 Personal history of other venous thrombosis and embolism | CPT/HCPCS: 99214 ==

== ENCOUNTER → 2025-01-14 17:35 | Outpatient (BNVA) | payer MEDICARE, OTHER, SELFPAY | PROVIDERS: PCP Nurse Practitioner Family; Visit Provider Internal Medicine | DX: I48.0 Paroxysmal atrial fibrillation (principal) | CPT/HCPCS: 85610 ==

== ENCOUNTER 2025-01-16 09:09 | Oncology outpatient (recurring) (ONCR) | payer MEDICARE, OTHER, SELFPAY ==
[2025-01-16 09:27] LABS: Hematocrit 40.5 % (36-47); Hemoglobin 13.70 g/dL (11.27-16.99); Mean Corpuscular HGB Conc 33.8 g/dL (30-55); Mean Corpuscular Hemoglobin 34.3 pg (27-33); Mean Corpuscular Volume 101.3 fl (85-98); Nucleated Red Blood Cells % 0 %; Platelet Count 245 10^3/cmm (157-399); Red Blood Count 4.00 10^6/uL (3.85-5.65); White Blood Count 6.59 10^3/uL (3.29-11.43)
[2025-01-16 09:44] LABS: Alanine Aminotransferase 13 U/L (0-33); Albumin Level 3.9 g/dL (3.5-5.2); Alkaline Phosphatase 74 U/L (35-105); Anion Gap 14.1 (5-19); Aspartate Amino Transferase 17 U/L (0-32); Blood Urea Nitrogen 16 mg/dL (8-23); Calcium 10.2 mg/dL (8.5-10.5); Carbon Dioxide 25 mmol/L (22-29); Chloride 104 mmol/L (98-107); Globulin 3.2 g/dL (1.3-4.6); Glucose 101 mg/dL (65-115); Osmolality Calculated 289 mOsm/kg (285-295); Potassium 4.1 mmol/L (3.5-5.1); Sodium 139 mmol/L (136-145); Total Protein 7.1 g/dL (6.6-8.7)
== END 2025-02-07 23:59 | disposition home or self-care (01) ==
PROVIDERS: PCP Nurse Practitioner Family; Visit Provider Nurse Practitioner Family
DX: C50.811 Malignant neoplasm of overlapping sites of right female breast (principal); Z17.0 Estrogen receptor positive status [ER+]; M81.0 Age-related osteoporosis without current pathological fracture; Z79.811 Long term (current) use of aromatase inhibitors
CPT/HCPCS: 36415; 80053; 85025; 99214

== ENCOUNTER → 2025-01-21 10:31 | Outpatient (BNVA) | payer MEDICARE, OTHER, SELFPAY | PROVIDERS: PCP Nurse Practitioner Family; Visit Provider Internal Medicine | DX: I48.0 Paroxysmal atrial fibrillation (principal) | CPT/HCPCS: 85610 ==

== ENCOUNTER → 2025-02-18 10:13 | Outpatient (BNVA) | payer MEDICARE, OTHER, SELFPAY | PROVIDERS: PCP Nurse Practitioner Family; Visit Provider Internal Medicine | DX: I48.0 Paroxysmal atrial fibrillation (principal) | CPT/HCPCS: 85610 ==

== ENCOUNTER 2025-03-13 08:45 | Outpatient (CLI) | payer MEDICARE, OTHER, SELFPAY ==
--- NOTE | 2025-03-13 08:51 | CTR_ITS ---
PROCEDURE INFORMATION: Exam: CT Abdomen And Pelvis Without And With Contrast Exam date and time: 03/13/2025 10:30 AM Age: 74 years old Clinical indication: Mass, lump, or swelling; Generalized; Prior surgery; Surgery date: 6+ months; Surgery type: Bilat breast, hernia, gb, appy, hyst; HX of breast cancer, bilateral palpable abdmoninal lumps, ? hernias; Additional info: Palpable abdominal mass TECHNIQUE: Imaging protocol: Computed tomography of the abdomen and pelvis without and with contrast. Radiation optimization: All CT scans at this facility use at least one of these dose optimization techniques: automated exposure control; mA and/or kV adjustment per patient size (includes targeted exams where dose is matched to clinical indication); or iterative reconstruction. Contrast material: OMNI 350; Contrast volume: 100 ml; Contrast route: INTRAVENOUS (IV); COMPARISON: CT abdomen pelvis w con* [id number] 01/09/2024 8:46 AM RADIATION DOSE METRICS: Total DLP (mGy-cm): 907.69 FINDINGS: Liver: Normal. No mass. Gallbladder and biliary ducts: Post cholecystectomy. Pancreas: Normal. No ductal dilation. Spleen: Normal. No splenomegaly. Adrenal glands: Normal. No mass. Kidneys and ureters: Normal. No hydronephrosis. Stomach and bowel: Unremarkable. No obstruction. No mucosal thickening. Appendix: There has been an appendectomy. Intraperitoneal space: Unremarkable. No free air. No significant fluid collection. Vasculature: Unremarkable. No abdominal aortic aneurysm. Lymph nodes: Unremarkable. No enlarged lymph nodes. Urinary bladder: Unremarkable as visualized. Reproductive: Status post hysterectomy. Bones/joints: Unremarkable. No acute fracture. Soft tissues: There is a multilocular thin-walled low-attenuation fluid collection in the right inguinal region with a component superficial to the inguinal ligament and 2 smaller ones deep to the inguinal ligament. The overall size of this collection is approximately 10 x 5 x 10 cm in height, AP and transverse diameter. A similar well-circumscribed fluid collection in the left inguinal region superficial of the inguinal ligament measures approximately 9 x 5 x 6 cm in height, AP, and transverse diameter. A small component dives deep to the inguinal ligament posteriorly. CT/CT abdomen pelvis wo/w [id number] IMPRESSION: Bilateral loculated inguinal region fluid collections probably rental representative of postoperative seromas.
[2025-03-13] MEDS: iohexol 350 mg/mL 500 mL Btl (per mL) IV (10:34)
[2025-03-13] MEDS: iohexol 350 mg/mL 500 mL Btl (per mL) PO (10:34)
== END 2025-03-13 08:46 | disposition home or self-care (01) ==
LOC: RAD 08:46
PROVIDERS: PCP Nurse Practitioner Family; Visit Provider Nurse Practitioner Family
DX: R19.09 Other intra-abdominal and pelvic swelling, mass and lump (principal); Z85.3 Personal history of malignant neoplasm of breast; Z90.710 Acquired absence of both cervix and uterus; Z90.49 Acquired absence of other specified parts of digestive tract
CPT/HCPCS: 74178

== ENCOUNTER → 2025-03-19 09:59 | Outpatient (BNVA) | payer MEDICARE, OTHER, SELFPAY | PROVIDERS: PCP Nurse Practitioner Family; Visit Provider Internal Medicine | DX: I48.0 Paroxysmal atrial fibrillation (principal) | CPT/HCPCS: 85610 ==

== ENCOUNTER → 2025-04-15 10:25 | Outpatient (BNVA) | payer MEDICARE, OTHER, SELFPAY | PROVIDERS: PCP Nurse Practitioner Family; Visit Provider Internal Medicine | DX: I48.0 Paroxysmal atrial fibrillation (principal) | CPT/HCPCS: 85610 ==

== ENCOUNTER 2025-05-02 13:55 | Outpatient (CLI) | payer MEDICARE, OTHER, SELFPAY ==
[2025-05-02 16:22] LABS: Free T4 Free Thyroxine 0.81 ng/dL (0.82-1.77); Thyroid Stimulating Hormone 1.66 uIU/mL (0.27-4.20)
== END 2025-05-02 13:56 | disposition home or self-care (01) ==
LOC: LAB 13:57
PROVIDERS: Internal Medicine Endocrinology, Diabetes & Metabolism; PCP Nurse Practitioner Family; Visit Provider Internal Medicine
DX: I48.0 Paroxysmal atrial fibrillation (principal); M81.0 Age-related osteoporosis without current pathological fracture; E05.90 Thyrotoxicosis, unspecified without thyrotoxic crisis or storm
CPT/HCPCS: 36415; 83516; 84439; 84443; 84480

== ENCOUNTER → 2025-05-13 10:04 | Outpatient (BNVA) | payer MEDICARE, OTHER, SELFPAY | PROVIDERS: PCP Nurse Practitioner Family; Visit Provider Internal Medicine | DX: I48.0 Paroxysmal atrial fibrillation (principal) | CPT/HCPCS: 85610 ==

== ENCOUNTER → 2025-06-10 10:17 | Outpatient (BNVA) | payer MEDICARE, OTHER, SELFPAY | PROVIDERS: PCP Nurse Practitioner Family; Visit Provider Internal Medicine | DX: I48.0 Paroxysmal atrial fibrillation (principal) | CPT/HCPCS: 85610 ==

== ENCOUNTER → 2025-06-13 12:42 | Outpatient (BNVA) | payer MEDICARE, OTHER, SELFPAY | PROVIDERS: PCP Nurse Practitioner Family; Visit Provider Internal Medicine | DX: I48.91 Unspecified atrial fibrillation (principal); Z79.01 Long term (current) use of anticoagulants; Z86.718 Personal history of other venous thrombosis and embolism | CPT/HCPCS: 99214 ==

== ENCOUNTER → 2025-07-09 10:42 | Outpatient (BNVA) | payer MEDICARE, OTHER, SELFPAY | PROVIDERS: PCP Nurse Practitioner Family; Visit Provider Internal Medicine | DX: I48.0 Paroxysmal atrial fibrillation (principal) | CPT/HCPCS: 85610 ==